=== PATIENT | female | born 1940 | race African-American/Black ===

== ENCOUNTER 2017-05-08 12:12 | Inpatient (IN) | payer MEDICARE ==
[~2017-05-08] VITALS: Ht 177.8 cm; Wt 81.6 kg
[2017-05-08] MEDS ORDERED: CARV6.25 PO (12:36)
[2017-05-08] MEDS ORDERED: ASPI-482 PO (12:36)
[2017-05-08 12:57] LABS: BASO % 0 % (0-3); EOS % 0 % (0-3); HEMATOCRIT 37.5 % (36.0-47.0); HEMOGLOBIN 12.4 g/dL (12.0-15.5); LYMPH # 1.3 x10^3/uL (1.0-4.8); LYMPH % 14 % (24-48); MEAN CORPUSCULAR HEMOGLOBIN 30 pg (25-35); MEAN CORPUSCULAR HGB CONC 33 g/dL (31-37); MEAN CORPUSCULAR VOLUME 92 fL (79-100); MONO % 7 % (0-9); NEUT % 78 % (31-73); PLATELET COUNT 269 x10^3/uL (140-400); RED BLOOD COUNT 4.07 x10^6/uL (3.50-5.40); RED CELL DISTRIBUTION WIDTH 14.1 % (11.5-14.5); WHITE BLOOD COUNT 9.3 x10^3/uL (4.0-11.0)
[2017-05-08] MEDS ORDERED: fentaNYL PF VIAL 100 MCG/2 ML VIAL IV PRN (13:00)
--- NOTE | 2017-05-08 13:02 | ED.ADGEN ---
Past Medical History Past Medical History: Diabetes-Type II, Hypertension Past Surgical History: Other Additional Past Surgical Histo: BLADDER REPAIR Alcohol Use: None Drug Use: None Adult General Chief Complaint Chief Complaint: SHOUDLER HPI HPI Patient is a 76 year old woman, history of type 2 diabetes mellitus, cardiomyopathy, hypertension, who presents to the emergency department with complaint of neck and left arm pain that radiates into her left scapula, that has been occurring intermittently over the past 5-6 days. Patient states the pain is achy and sore, denies any injuries, states the pain is somewhat worse with motion of the arm and the neck, some extension into the scapular region on the left, states that it is worse with rotation to the left, and with elevation. Denies any injuries or similar to previously. States that the pain does seem to wrap around to be under portion of her left arm. Denies any jose chest pain or shortness breath, any nausea or vomiting, any belching, any focal weakness, numbness or tingling. No recent travel or surgery. Patient states she was unable to sleep last night due to pain. Denies any swelling extremities, is noted to be tachycardic in the 120s and 130s upon arrival to the ED, denies any palpitations, denies any fever or chills, states that she use Aleve at home without relief today. Review of Systems Review of Systems Constitutional: Denies fever or chills. [] Eyes: Denies change in visual acuity. [] HENT: Denies nasal congestion or sore throat. [] Respiratory: Denies cough or shortness of breath. [] Cardiovascular: Denies chest pain or edema. [] GI: Denies abdominal pain, nausea, vomiting, bloody stools or diarrhea. [] : Denies dysuria. [] Musculoskeletal: Complaining of pain in the left side of her neck, back and left arm. Integument: Denies rash. [] Neurologic: Denies headache, focal weakness or sensory changes. [] Endocrine: Denies polyuria or polydipsia. [] Lymphatic: Denies swollen glands. [] Psychiatric: Denies depression or anxiety. [] Current Medications Current Medications Current Medications Medications (Trade) Dose Ordered Sig/Zoë Start Time Stop Time Status Last Admin Dose Admin Fentanyl Citrate (Fentanyl 2ml Vial) 25 mcg PRN Q15MIN PRN 05/08/17 13:00 05/08/17 17:56 DC 05/08/17 13:22 25 MCG Iohexol (Omnipaque 300 Mg/ml) 75 ml 1X ONCE 05/08/17 14:15 05/08/17 14:16 DC 05/08/17 15:14 75 ML Allergies Allergies Allergies Coded Allergies Type Severity Reaction Last Updated Verified No Known Drug Allergies 05/08/17 No Physical Exam Physical Exam Constitutional: Well developed, well nourished, no acute distress, non-toxic appearance. [] HENT: Normocephalic, atraumatic, bilateral external ears normal, oropharynx moist, no oral exudates, nose normal. [] Eyes: PERRLA, EOMI, conjunctiva normal, no discharge. [] Neck: Normal range of motion, no midline tenderness, supple, no stridor. Patient with mild to palpation in the trapezius region extending down to the scapula.[] Patient with worsening of symptoms with rotation to the left. No bruits. Cardiovascular:Heart rate regular rhythm, no murmur, S1, S2, no rubs or gallops. [] Lungs & Thorax: Bilateral breath sounds clear to auscultation, no wheezing, rhonchi, rales. No crepitus, patient with mild thrush palpation across the scapula on the left, no lesions or abnormalities identified. [] Abdomen: Bowel sounds normal, soft, no tenderness, no rebound, rigidity, no guarding, no masses, no pulsatile masses. [] Skin: Warm, dry, no erythema, no rash. [] Back: No midline or paraspinal tenderness, tenderness to palpation in the left scapular region as stated. No CVA tenderness. [] Extremities: No tenderness, no cyanosis, no clubbing, ROM intact, no edema. [] Patient with equal pulses in all extremities. Neurologic: Alert and oriented X 3, normal motor function, normal sensory function, no focal deficits noted. [] Psychologic: Affect normal, judgement normal, mood normal. [] Current Patient Data Vital Signs Vital Signs Date Time Temp Pulse Resp B/P (MAP) Pulse Ox O2 Delivery O2 Flow Rate FiO2 05/08/17 16:05 94 18 160/83 (108) 98 Room Air 05/08/17 12:20 98.0 98.0 Lab Values Laboratory Tests Test 05/08/17 12:32 White Blood Count 9.3 x10^3/uL (4.0-11.0) Red Blood Count 4.07 x10^6/uL (3.50-5.40) Hemoglobin 12.4 g/dL (12.0-15.5) Hematocrit 37.5 % (36.0-47.0) Mean Corpuscular Volume 92 fL (79-100) Mean Corpuscular Hemoglobin 30 pg (25-35) Mean Corpuscular Hemoglobin Concent 33 g/dL (31-37) Red Cell Distribution Width 14.1 % (11.5-14.5) Platelet Count 269 x10^3/uL (140-400) Neutrophils (%) (Auto) 78 % (31-73) H Lymphocytes (%) (Auto) 14 % (24-48) L Monocytes (%) (Auto) 7 % (0-9) Eosinophils (%) (Auto) 0 % (0-3) Basophils (%) (Auto) 0 % (0-3) Neutrophils # (Auto) 7.2 x10^3uL (1.8-7.7) Lymphocytes # (Auto) 1.3 x10^3/uL (1.0-4.8) Monocytes # (Auto) 0.6 x10^3/uL (0.0-1.1) Eosinophils # (Auto) 0.0 x10^3/uL (0.0-0.7) Basophils # (Auto) 0.0 x10^3/uL (0.0-0.2) D-Dimer (Kimmie) 0.54 ug/mlFEU (0.00-0.50) H Sodium Level 135 mmol/L (136-145) L Potassium Level 4.5 mmol/L (3.5-5.1) Chloride Level 98 mmol/L (98-107) Carbon Dioxide Level 26 mmol/L (21-32) Anion Gap 11 (6-14) Blood Urea Nitrogen 14 mg/dL (7-20) Creatinine 1.0 mg/dL (0.6-1.0) Estimated GFR (Cockcroft-Gault) 64.9 Glucose Level 207 mg/dL (70-99) H Calcium Level 9.7 mg/dL (8.5-10.1) Total Bilirubin 0.2 mg/dL (0.2-1.0) Direct Bilirubin 0.1 mg/dL (0.0-0.2) Aspartate Amino Transferase (AST) 22 U/L (15-37) Alanine Aminotransferase (ALT) 10 U/L (14-59) L Alkaline Phosphatase 60 U/L (46-116) Troponin I Quantitative < 0.017 ng/mL (0.000-0.055) UB-Xdl-L-Type Natriuretic Peptide 770 pg/mL (0-449) H Total Protein 8.2 g/dL (6.4-8.2) Albumin 3.9 g/dL (3.4-5.0) Laboratory Tests 05/08/17 12:32 Laboratory Tests 05/08/17 12:32 EKG EKG EC: Sinus tachycardia, heart rate 112 bpm, left ventricular hypertrophy noted, with repolarization abnormality, with elevations noted in lead 3 and aVF , with depressions noted in aVL, QTC of 436, KS of 200, QRS of 106, KS interval is prolonged as stated, abnormal ECG, no prior for comparison, does not meet STEMI criteria. As interpreted by me. [] Radiology/Procedures Radiology/Procedures [][address] [address] IMAGING REPORT Signed PATIENT: AIDEN CARRERO ACCOUNT: [id number] : 1940 LOCATION: ER AGE: 76 SEX: F EXAM STATUS: REG ER ORD. PHYSICIAN: JAVIER GOULD DO REASON: L arm pain PROCEDURE: SHOULDER 2+V LEFT Two-view left shoulder study History: Left arm pain. Findings: No acute fracture or dislocation or osteolytic process is seen. No AC joint separation is seen. There is moderate primary degenerative osteoarthritis and spurring of the left AC joint. 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 DICTATED and SIGNED BY: JONI AVALOS MD DATE: 05/08/17 8525 CC: JAVIER GOULD DO; ZACH PATTERSON MD ~ [address] [address] IMAGING REPORT Signed PATIENT: AIDEN CARRERO ACCOUNT: [id number] : 1940 LOCATION: ER AGE: 76 SEX: F EXAM STATUS: REG ER ORD. PHYSICIAN: JAVIER GOULD DO REASON: L arm pain PROCEDURE: CERVICAL SPINE 2-3V Three-view cervical spine study Clinical indications: Neck pain. Left arm pain. Findings: No acute fracture or discitis or osteolytic process or prevertebral soft tissue swelling is evident. There is a grade 1 anterolisthesis of C4-5. Degenerative facet arthropathy is seen at this level in addition to other levels. There is moderate degenerative disc space narrowing and moderate degenerative endplate spurring at C5-6. There is mild degenerative disc space narrowing and moderate degenerative endplate spurring at C6-7. IMPRESSION: Degenerative cervical spondylosis. DICTATED and SIGNED BY: JONI AVALOS MD DATE: 05/08/171328 CC: JAVIER GOULD DO; ZACH PATTERSON MD ~ [address] [address] IMAGING REPORT Signed PATIENT: AIDEN CARRERO ACCOUNT: [id number] : 1940 LOCATION: ER AGE: 76 SEX: F EXAM STATUS: REG ER ORD. PHYSICIAN: JAVIER GOULD DO REASON: L arm pain PROCEDURE: PORTABLE CHEST 1V PA view CXR: Clinical indications: Left chest and arm pain. Findings: No acute lung infiltrate or pleural effusion or pulmonary edema or lung mass or pneumothorax is seen. The heart size, pulmonary vasculature, mediastinum and both ernestina are unremarkable. No obvious osseous deformity is seen. Impression: No acute radiographic abnormality is seen. DICTATED and SIGNED BY: JONI AVALOS MD DATE: 05/08/171324 CC: JAVIER GOULD DO; ZACH PATTERSON MD ~ Impressions: [address] [address] IMAGING REPORT Signed PATIENT: AIDEN CARRERO ACCOUNT: [id number] : 1940 LOCATION: ER AGE: 76 SEX: F EXAM STATUS: REG ER ORD. PHYSICIAN: JAVIER GOULD DO REASON: Tachycardia/neck/arm/left back pain PROCEDURE: CT ANGIOGRAPHY CHEST CTA of the chest with and without contrast Clinical indications: Tachycardia. Neck, arm and left back pain. Technique: Noncontrast axial localizer was performed. After IV infusion of 75 cc of Omnipaque 300, helical CT scanning of the chest was performed using the CT pulmonary embolism protocol. A coronal MIP reconstruction was generated. PQRS Compliance Statement: One or more of the following individualized dose reduction techniques were utilized for this examination: 1. Automated exposure control 2. Adjustment of the mA and/or kV according to patient size 3. Use of iterative reconstruction technique Comparison: None available. Findings: No pulmonary embolism is evident. No focal aneurysmal dilatation of the thoracic aorta is seen. The heart size is mildly enlarged. Calcified atheromatous disease of the coronary arteries is seen. No pericardial effusion is seen. No enlarged thoracic lymphadenopathy is seen. Peripheral interstitial lung infiltrates are seen within both lung bases worse on the left side with mild honeycombing consistent with interstitial pulmonary fibrosis. No lung consolidation with air bronchograms or lung mass is seen. No pleural effusion or pneumothorax is evident. The proximal bronchial tree is patent. No adrenal mass is evident. No osteolytic process is seen. IMPRESSION: No pulmonary embolism. Cardiomegaly with calcified atheromatous disease of coronary arteries. Bilateral interstitial pulmonary fibrosis with a lower lung zone predominance. DICTATED and SIGNED BY: JONI AVALOS MD DATE: 05/08/171618 CC: JAVIER GOULD DO; ZACH PATTERSON MD ~ Course & Med Decision Making Course & Med Decision Making Pertinent Labs and Imaging studies reviewed. (See chart for details) Patient complaining of scapular pain, neck pain, and left arm pain, has history of CAD, concern for potential atypical chest pain, patient also noted be in sinus tachycardia upon arrival in the 130s. Denies any shortness of breath, any anterior chest pain, any nausea or vomiting or other symptoms. No injuries. Received with ECG, which revealed left internal hypertrophy, abnormalities in the inferior and lateral leads, patient is denying any chest pain or other symptoms currently, initial troponin is negative in the emergency department. Patient received pain medication, heart rate is now in the 80s and 90s. Oxygen saturation remains in the mid upper 90s. D-dimer was positive at 0.54. Did discuss findings with patient, she is agreeable to receiving additional evaluation, including CT of the chest to rule out occult pulmonary or vascular issue. CT obtained without issue, no evidence of PE or vascular issues, patient noted to have bilateral pulmonary also to fibrosis. I did discuss with patient, she does not have any history of lung issues as far she is aware, states she quit smoking 33 years ago. Patient is resting more comfortably L she continues to have some pain in the arm and shoulder region, I am concerned this is a radicular type pain, as patient is noted have degenerative changes in the neck and in the shoulder. Findings as above discussed with Dr. Patterson, the patient's primary care provider, concern for potential atypical cardiac presentation with patient's history and examination, also concern for patient's tachycardia, and identification of a previously unknown lung issue, request the patient be admitted to his service to the medical telemetry floor, consultation placed for pulmonary critical care and cardiology. I did discuss with patient, who is agreeable this plan. Bridge orders entered per discussion. Dragon Disclaimer Dragon Disclaimer This electronic medical record was generated, in whole or in part, using a voice recognition dictation system. Departure Impression: Primary Impression: Back pain Disposition: ADMITTED INPATIENT Admitting Physician: Zach Patterson Condition: IMPROVED JAVIER GOULD DO May 08, 2017 13:01
[2017-05-08] MEDS ORDERED: METH5TAB6 PO (13:09)
[2017-05-08] MEDS ORDERED: CARV3.122 PO (13:09)
[2017-05-08] MEDS ORDERED: SIMV20TA3 PO (13:09)
[2017-05-08] MEDS ORDERED: METF850T2 PO (13:09)
[2017-05-08 13:13] LABS: CALCIUM 9.7 mg/dL (8.5-10.1); GFR 64.9; POTASSIUM 4.5 mmol/L (3.5-5.1)
[2017-05-08 13:20] LABS: ALBUMIN 3.9 g/dL (3.4-5.0); DIRECT BILIRUBIN 0.1 mg/dL (0.0-0.2); TOTAL BILIRUBIN 0.2 mg/dL (0.2-1.0); TOTAL PROTEIN 8.2 g/dL (6.4-8.2)
--- NOTE | 2017-05-08 13:29 | RAD ---
PA view CXR: Clinical indications: Left chest and arm pain. Findings: No acute lung infiltrate or pleural effusion or pulmonary edema or lung mass or pneumothorax is seen. The heart size, pulmonary vasculature, mediastinum and both ernestina are unremarkable. No obvious osseous deformity is seen. Impression: No acute radiographic abnormality is seen.
--- NOTE | 2017-05-08 13:31 | RAD ---
Two-view left shoulder study History: Left arm pain. Findings: No acute fracture or dislocation or osteolytic process is seen. No AC joint separation is seen. There is moderate primary degenerative osteoarthritis and spurring of the left AC joint. 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
--- NOTE | 2017-05-08 13:34 | RAD ---
Three-view cervical spine study Clinical indications: Neck pain. Left arm pain. Findings: No acute fracture or discitis or osteolytic process or prevertebral soft tissue swelling is evident. There is a grade 1 anterolisthesis of C4-5. Degenerative facet arthropathy is seen at this level in addition to other levels. There is moderate degenerative disc space narrowing and moderate degenerative endplate spurring at C5-6. There is mild degenerative disc space narrowing and moderate degenerative endplate spurring at C6-7. IMPRESSION: Degenerative cervical spondylosis.
[2017-05-08] MEDS ORDERED: IOHEXOL 300 MG/ML 75 ML VIAL IV ONE (14:15)
[2017-05-08] MEDS ORDERED: CONTRAST GIVEN MC PRN (14:15)
[2017-05-08 16:05] VITALS: BP 160/83
--- NOTE | 2017-05-08 16:27 | RAD ---
CTA of the chest with and without contrast Clinical indications: Tachycardia. Neck, arm and left back pain. Technique: Noncontrast axial localizer was performed. After IV infusion of 75 cc of Omnipaque 300, helical CT scanning of the chest was performed using the CT pulmonary embolism protocol. A coronal MIP reconstruction was generated. PQRS Compliance Statement: One or more of the following individualized dose reduction techniques were utilized for this examination: 1. Automated exposure control 2. Adjustment of the mA and/or kV according to patient size 3. Use of iterative reconstruction technique Comparison: None available. Findings: No pulmonary embolism is evident. No focal aneurysmal dilatation of the thoracic aorta is seen. The heart size is mildly enlarged. Calcified atheromatous disease of the coronary arteries is seen. No pericardial effusion is seen. No enlarged thoracic lymphadenopathy is seen. Peripheral interstitial lung infiltrates are seen within both lung bases worse on the left side with mild honeycombing consistent with interstitial pulmonary fibrosis. No lung consolidation with air bronchograms or lung mass is seen. No pleural effusion or pneumothorax is evident. The proximal bronchial tree is patent. No adrenal mass is evident. No osteolytic process is seen. IMPRESSION: No pulmonary embolism. Cardiomegaly with calcified atheromatous disease of coronary arteries. Bilateral interstitial pulmonary fibrosis with a lower lung zone predominance.
[2017-05-08] MEDS ORDERED: ACETAMINOPHEN 325 MG TABLET. PO PRN (18:00)
[2017-05-08] MEDS ORDERED: ONDANSETRON PF 4 MG/2 ML VIAL. IV PRN (18:00)
[2017-05-08] MEDS ORDERED: METH-364 PO (18:35)
[2017-05-08] MEDS ORDERED: CYAN100070 PO (18:35)
[2017-05-08] MEDS ORDERED: CHOL10003 PO (18:35)
[2017-05-08] MEDS ORDERED: CALC1TAB PO (18:35)
[2017-05-08] MEDS ORDERED: MULT-697 PO (18:35)
[2017-05-08 19:00] VITALS: BP 127/60
[2017-05-08] MEDS: fentaNYL PF VIAL 100 MCG/2 ML VIAL IV PRN ×2 (19:41→21:17)
[2017-05-08] MEDS ORDERED: GLIM4TAB2 PO (21:07)
[2017-05-08] MEDS: SIMVASTATIN 20 MG TABLET PO SCH (21:16)
[2017-05-08] MEDS: methIMAzole 10 MG TABLET PO SCH (21:17)
[2017-05-08] MEDS: GLIMEPIRIDE 2 MG TABLET. PO SCH (21:17)
[2017-05-08] MEDS: CARVEDILOL 3.125 MG TABLET. PO SCH (21:17)
[2017-05-08 22:56] VITALS: BP 124/63
[2017-05-09] VITALS (15 sets, daily range): BP systolic 119–154; BP diastolic 56–80
[2017-05-09] MEDS: fentaNYL PF VIAL 100 MCG/2 ML VIAL IV PRN (03:34)
--- NOTE | 2017-05-09 04:34 | ACF ---
Admit Criteria Forms Admit Criteria Forms Admit Criteria Forms CARDIOLOGY GRG Clinical Indications for Admission to Inpatient Care ( Place 'X' for any and all applicable criteria): Hospital admission is needed for appropriate care of the patient because of ANY ONE of the following (1): [ ] I. Hemodynamic instability as indicated by ALL of the following (1)(2)(3) (4)(5) [ ]a) Vital signs or other findings not as expected for chronic patient condition or baseline [ ]b) Instability indicated by ANY ONE of the following: [ ]i) Hypotension [ ]ii) Symptomatic Tachycardia unresponsive to treatment ( e.g., analgesia, fluids, sedation as indicated) [ ]iii) Inadequate perfusion indicated by ANY ONE of the following: [ ] 1) Lactic acidosis (> 2 mmol/L) [ ] 2) New abnormal capillary refill (> 3 seconds) [ ] 3) Reduced urine output [ ] 4) New altered mental status [ ]iv) Orthostatic vital sign changes unresponsive to treatment (e.g., fluids) [ ]v) IV inotropic or vasopressor medication required to maintain adequate blood pressure or perfusion [ ] II. Severe heart failure as indicated by ANY ONE of the following(17)(18) [ ]a) Respiratory distress [ ]b) Hypotension [ ]c) Anasarca (refractory to outpatient therapy) [ ]d) Cardiac arrhythmias of immediate concern [ ]e) Myocardial ischemia [ ] III. Cardiac arrhythmias or findings of immediate concern indicated by ANY ONE of the following (19)(20): [ ] a) Heart rhythms that are inherently dangerous or unstable indicated by ANY ONE of the following (21)(22)(23): [ ] i) Resuscitated ventricular fibrillation or cardiac arrest [ ] ii) Ventricular escape rhythm [ ] iii) Sustained ventricular tachycardia (30 seconds or more of ventricular rhythm at greater than 100 beats per minute) [ ] iv) Nonsustained ventricular tachycardia and ANY ONE of the following: [ ] 1) Suspected cardiac ischemia as cause or consequence of ventricular tachycardia [ ] 2) In setting of acute myocarditis [ ] b) Unstable cardiac conduction defects indicated by ANY ONE of the following(23)(24)(25) [ ] i) Type II second-degree atrioventricular block [ ]ii) Third-degree atrioventricular block [ ]iii) New-onset left bundle branch block with suspected myocardial ischemia [ ]c) Any heart rhythm and ANY ONE of the following (21)(22)(26)(27) (28) [ ] i) Continuous long-term ECG monitoring needed (e.g., initiation of drug requiring monitoring for more than 24 hours) [ ] ii) Patient has automatic implanted cardioverter defibrillator that is repeatedly firing, malfunctioning, or in need of immediate adjustment of settings beyond the scope of ambulatory or observation care [ ]d) Heart rhythms of concern due to ANY ONE of the following: [ ] i) Hypotension [ ] ii) Respiratory distress [ ] iii) Association with other significant symptoms (e.g., bradycardia with syncope or ongoing dizziness, supraventricular tachycardia with chest pain (14)(15)(17) [ ] IV. Monitoring for cardiac contusion beyond the scope of observation care needed [A](30)(31)(32) [ ] V. Surgical or device complication (e.g., valve replacement complication , pacemaker dysfunction) (35)(41)(44)(45)(46) [ ] . Inpatient palliative care needed. [B](49) Also use Inpatient Palliative Care Criteria [ ] VII. Nonbacterial thrombotic (marantic) endocarditis (36)(43)(47)(48) [X ] VIII. Cardiology condition, symptom, or finding for which emergency and observation care has failed or are not considered appropriate. [ ] IX. Acute valvular disease requiring inpatient as indicated by ANY ONE of the following (41) [ ]a) Acute valvular regurgitation (42) [ ]b) Noninfectious valvulitis (43) [ ]c) Obstructive valve thrombosis [ ]d) Paravalvular leak [ ]e) Other significant valvular disorder remaining after emergency or observation level of care (as appropriate) [ ]X. Pericardial disease requiring inpatient treatment as indicated by ANY ONE of the following (33)(34)(35)(36)(37) [ ]a) Suspected tamponade (38)(39)(40) [ ]b) Hemopericardium [ ]c) Other significant pericardial disorder remaining after emergency or observation level of care (as appropriate) [ ] XI. Cardiac ischemia beyond scope of emergency and observation care. [ ] XII. Hypertension requiring inpatient treatment as indicated by ANY ONE of the following (6)(7)(8) [ ]a) SBP greater than 220 mm Hg or DBP greater than 120 mmHg despite treatment [ ]b) SBP greater than 140 mm Hg or DBP greater than 100 mm Hg with evidence of acute end organ damage as indicated by ANY ONE of the following [ ] i) Encephalopathy [ ] ii) Acute renal failure as indicated by new onset of ANY ONE of the following (9)(10)(11)(12)(13) [ ]1) 3-fold rise in serum creatinine from baseline [ ]2) Serum creatinine greater than 4 mg/dL ( 354 micromoles/L) with acute rise greater than 0.5 mg/dL (44.2 micromoles/L) [ ]3) Reduction of more than 75% in estimated glomerular filtration rate from baseline [ ]4) Estimated glomerular filtration rate less than 35 mL/min/1.73m2 (0.59 mL/sec/1.73m2) in child up to 18 years of age [ ]5) Cessation of urine output indicated by ALL of the following [ ]A. Adequate volume status [ ]B. Inadequate urine output as indicated by ANY ONE of the following [ ]a. Urine output less than 0.3 mL/kg/hr for 24 hours [ ]b. Anuria (urine output less than 0.1 mL/kg/hr) for 12 hours [ ] iii) Aortic dissection [ ] iv) Myocardial Ischemia [ ] v) Left ventricular heart failure [ ]vi) Retinal Hemorrhage [ ]vii) Other significant finding [ ]c) Hypertension in child requiring inpatient treatment as indicated by ALL of the following(14)(15)(16) [ ] i) Outpatient treatment not effective, not available, or not appropriate [ ]ii) SBP or DBP greater than 95th percentile for age [ ]iii) Evidence of acute end organ damage as indicated by ANY ONE of the following [ ]1) Altered mental status [ ]2) Acute renal failure as indicated by new onset of ANY ONE of the following(9)(10)(11)(12)(13) [ ]A. 3-fold rise in serum creatinine from baseline [ ]B. Serum creatinine greater than 4 mg/dL (354 micromoles/L) with acute rise greater than 0.5 mg/dL (44.2 micromoles/L) [ ]C. Reduction of more than 75% in estimated glomerular filtration rate from baseline [ ]D. Estimated glomerular filtration rate less than 35 mL/min/1.73m2 (0.59 mL/sec/1.73m2) in child up to 18 years of age [ ]E. Cessation of urine output indicated by ALL of the following [ ]a. Adequate volume status [ ]b. Inadequate urine output as indicated by ANY ONE of the following [ ]i) Urine output less than 0.3 mL/kg/hr for 24 hours [ ]ii) Anuria ( urine output less than 0.1 mL/kg/hr) for 12 hours [ ]3) Severe headache [ ]4) Visual disturbance [ ]5) Retinal hemorrhage [ ]6) Other significant finding [ ]XIII. Complications of transplanted heart indicated by ANY ONE of the following(61): [ ]a) Acute graft rejection requiring inpatient management (eg, intravenous immunosuppression)(62)(63) [ ]b) Acute graft heart failure indicated by ANY ONE of the following(64): [ ]i) Hemodynamic instability [ ]ii) Cardiac arrhythmias of immediate concern [ ]iii) Pulmonary edema that is very severe (eg, mechanical ventilation needed, imminent or likely, need for 100% oxygen to keep oxygen saturation above 90%) [ ]iv) Pulmonary edema that is persistent as indicated by ALL of the following: [ ]1) New need for oxygen therapy to keep oxygen saturation above 90% (or increased FiO2 need from baseline) [ ]2) Has not improved sufficiently with emergency department or observation care IV diuretics or other heart failure treatments[E] [ ]v) Altered mental status that is severe or persistent [ ]vi) Increased creatinine (new on laboratory test) with reduction of more than 50% in estimated glomerular filtration rate from baseline [ ]vii) Progressively (ongoing) rising creatinine (known from past laboratory test) with reduction of more than 25% in estimated glomerular filtration rate from baseline [ ]viii) Acute renal failure [ ]ix) Acute peripheral ischemia (eg, examination shows pulseless, cool, mottled, or cyanotic extremity) [ ]x) Pulmonary artery catheter monitoring needed [ ]xi) Other sign or symptom of heart failure requiring inpatient treatment (ie, too severe or not responsive to outpatient and observation care treatment) [ ]c) Infection requiring inpatient management (eg, Hemodynamic instability, need for intravenous antimicrobial treatment)(66)(67)(68)(69)(70) [ ]d) Cardiac allograft vasculopathy requiring inpatient management ( eg evidence of cardiac ischemia)(71) [ ]e) Other complication of transplanted heart (eg, stroke, severe pulmonary hypertension, severe valvular dysfunction) requiring inpatient management(72) The original [employer] content created by [facility] has been revised. The portions of the content which have been revised are identified through the use of italic text or in bold, and [facility] [employer] has neither reviewed nor approved the modified material. All other unmodified content is copyright [employer] [employer]. Please see references footnoted in the original [employer] edition 2016 PANCHO SPENCE May 09, 2017 04:34
--- NOTE | 2017-05-09 06:24 | EKG ---
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
[2017-05-09] MEDS: methIMAzole 10 MG TABLET PO SCH ×3 (06:29→21:53)
[2017-05-09 06:48] LABS: ALBUMIN 3.3 g/dL (3.4-5.0); ALBUMIN/GLOBULIN RATIO 0.7 (1.0-1.7); CALCIUM 9.2 mg/dL (8.5-10.1); CREATININE 0.8 mg/dL (0.6-1.0); GFR 83.9; POTASSIUM 3.4 mmol/L (3.5-5.1); TOTAL BILIRUBIN 0.3 mg/dL (0.2-1.0); TOTAL PROTEIN 7.8 g/dL (6.4-8.2)
[2017-05-09] MEDS: INSULIN ASPART 300 UNITS/3 ML INSULN.PEN SQ SCH ×3 (07:30→18:45)
[2017-05-09] MEDS ORDERED: ACETAMINOPHEN 325 MG TABLET. PO PRN (07:30)
[2017-05-09] MEDS ORDERED: fentaNYL PF VIAL 100 MCG/2 ML VIAL IV PRN (07:30)
[2017-05-09] MEDS ORDERED: ONDANSETRON PF 4 MG/2 ML VIAL. IV PRN (07:30)
[2017-05-09 07:57] LABS: BASO % 0 % (0-3); EOS % 1 % (0-3); HEMATOCRIT 33.4 % (36.0-47.0); LYMPH # 1.3 x10^3/uL (1.0-4.8); LYMPH % 25 % (24-48); MEAN CORPUSCULAR HEMOGLOBIN 30 pg (25-35); MEAN CORPUSCULAR HGB CONC 33 g/dL (31-37); MEAN CORPUSCULAR VOLUME 92 fL (79-100); MONO % 12 % (0-9); NEUT % 62 % (31-73); PLATELET COUNT 233 x10^3/uL (140-400); RED BLOOD COUNT 3.62 x10^6/uL (3.50-5.40); RED CELL DISTRIBUTION WIDTH 14.1 % (11.5-14.5); WHITE BLOOD COUNT 5.3 x10^3/uL (4.0-11.0)
[2017-05-09] MEDS: CHOLECALCIFEROL (VITAMIN D3) 1,000 UNIT TABLET PO SCH (09:00)
[2017-05-09] MEDS: DICLOFENAC SODIUM 1% TOPICAL GEL 100GM TUBE. TP SCH ×4 (09:00→23:32)
[2017-05-09] MEDS: ASPIRIN ENTERIC COATED 81 MG TABLET.DR. PO SCH (09:19)
[2017-05-09] MEDS: CARVEDILOL 3.125 MG TABLET. PO SCH ×2 (09:19→18:35)
[2017-05-09] MEDS: GLIMEPIRIDE 2 MG TABLET. PO SCH ×2 (09:19→18:34)
[2017-05-09] MEDS: CALCIUM CARB/VIT D3 500/200 TABLET. PO SCH (09:20)
[2017-05-09] MEDS: MULTIVITAMIN with MINERAL TABLET. PO SCH (09:20)
[2017-05-09] MEDS: tiZANidine 4 MG TABLET. PO PRN (09:20)
[2017-05-09] MEDS: CYANOCOBALAMIN (VITAMIN B-12) 1,000 MCG TABLET. PO SCH (09:22)
--- NOTE | 2017-05-09 09:37 | PDOC ---
Provider Note Provider Note Patient seen. See H&P for details. Has neck,left shoulder pain. Seen in office last week- c/o rt sided neck and shoulder pain at that time. CT chest- pulmonary fibrosis. The patient was seen and examined by me. Chart reviewed and plan of care formulated. Discussed with, reviewed and agree with EAR MACHINE OPERATOR's notes, plan of care and orders with modifications as necessary. For more details regarding further plans, please refer to the orders. Patient may be discharged later today if stable. LOIDA REID MD May 09, 2017 09:37
--- NOTE | 2017-05-09 09:39 | PDOC1 ---
HISTORY AND PHYSICAL Chief Complaint Chief Complaint This 77 year old female has been admitted with a chief complaint of L sided neck pain into L shoulder with h/o CAD treated by Dr. Beyer in [place], [place]. She was seen Tuesday by Dr. Patterson for a routine f/u office visit. She reports that she forgot to tell Dr. Patterson of the recent onset of pain in her L neck and L shoulder/L wrist. The onset of pain was 3-5 days earlier with no trauma. It started in her L neck muscle extending posterior into L scapula/shoulder and some L wrist pain. Tuesday it reached a level 10 and she could hardly move her L arm and the pain was starting on the R side of her neck. She was not able to sleep. She presented to the ED for evaluation. EKG ST rate 120-130. Degenerative arthritis L shoulder joint and OA cervical spine. Hypertensive urgency was present probably r/t pain. D dimer was positive and a CT angio of the chest revealed interstitial infiltrate bilateral lung bases L>R suspicious for pulmonary fibrosis. There was CM also present. BNP was mildly elevated at 770. She does have a h/o systolic/diastolic CHF with biventricular enlargement. She is also under treatment for CAD with Dr. Beyer. EKG was ST with non specific ST changes and she is admitted for further evaluation and treatment. 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 Medications Medication reviewed and reconciled Allergy Allergies Coded Allergies Type Severity Reaction Last Updated Verified No Known Drug Allergies 05/08/17 No Physical Exam Physical Exam General appearance - alert,well appearing, and in no distress Mental Status - alert, oriented to person, place, and time, affect appropriate to mood Head - normal Chest - baseline fine crackles R>L otherwise clear Heart - S1 and S2 normal Abdomen - soft, nontender, nondistended, no masses or organomegaly Neurological - no acute focal neurological deficit noted. Musculoskeletal - trapezius tender with tenderness into L rotator cuff. Pain with ROM L shoulder and L wrist. Extremities - no pedal edema Skin - warm and dry VTE Prophylaxis Ordered VTE Prophylaxis Devices: Yes VTE Pharmacological Prophylaxi: Yes Assessment Labs Laboratory Tests Test 05/08/17 12:32 05/08/17 20:29 05/09/17 06:05 05/09/17 07:35 White Blood Count 9.3 x10^3/uL (4.0-11.0) 5.3 x10^3/uL (4.0-11.0) Red Blood Count 4.07 x10^6/uL (3.50-5.40) 3.62 x10^6/uL (3.50-5.40) Hemoglobin 12.4 g/dL (12.0-15.5) 11.0 g/dL (12.0-15.5) Hematocrit 37.5 % (36.0-47.0) 33.4 % (36.0-47.0) Mean Corpuscular Volume 92 fL (79-100) 92 fL (79-100) Mean Corpuscular Hemoglobin 30 pg (25-35) 30 pg (25-35) Mean Corpuscular Hemoglobin Concent 33 g/dL (31-37) 33 g/dL (31-37) Red Cell Distribution Width 14.1 % (11.5-14.5) 14.1 % (11.5-14.5) Platelet Count 269 x10^3/uL (140-400) 233 x10^3/uL (140-400) Neutrophils (%) (Auto) 78 % (31-73) 62 % (31-73) Lymphocytes (%) (Auto) 14 % (24-48) 25 % (24-48) Monocytes (%) (Auto) 7 % (0-9) 12 % (0-9) Eosinophils (%) (Auto) 0 % (0-3) 1 % (0-3) Basophils (%) (Auto) 0 % (0-3) 0 % (0-3) Neutrophils # (Auto) 7.2 x10^3uL (1.8-7.7) 3.3 x10^3uL (1.8-7.7) Lymphocytes # (Auto) 1.3 x10^3/uL (1.0-4.8) 1.3 x10^3/uL (1.0-4.8) Monocytes # (Auto) 0.6 x10^3/uL (0.0-1.1) 0.6 x10^3/uL (0.0-1.1) Eosinophils # (Auto) 0.0 x10^3/uL (0.0-0.7) 0.1 x10^3/uL (0.0-0.7) Basophils # (Auto) 0.0 x10^3/uL (0.0-0.2) 0.0 x10^3/uL (0.0-0.2) D-Dimer (Kimmie) 0.54 ug/mlFEU (0.00-0.50) Sodium Level 135 mmol/L (136-145) 138 mmol/L (136-145) Potassium Level 4.5 mmol/L (3.5-5.1) 3.4 mmol/L (3.5-5.1) Chloride Level 98 mmol/L (98-107) 101 mmol/L (98-107) Carbon Dioxide Level 26 mmol/L (21-32) 29 mmol/L (21-32) Anion Gap 11 (6-14) 8 (6-14) Blood Urea Nitrogen 14 mg/dL (7-20) 10 mg/dL (7-20) Creatinine 1.0 mg/dL (0.6-1.0) 0.8 mg/dL (0.6-1.0) Estimated GFR (Cockcroft-Gault) 64.9 83.9 Glucose Level 207 mg/dL (70-99) 148 mg/dL (70-99) Calcium Level 9.7 mg/dL (8.5-10.1) 9.2 mg/dL (8.5-10.1) Total Bilirubin 0.2 mg/dL (0.2-1.0) 0.3 mg/dL (0.2-1.0) Direct Bilirubin 0.1 mg/dL (0.0-0.2) Aspartate Amino Transf (AST/SGOT) 22 U/L (15-37) 41 U/L (15-37) Alanine Aminotransferase (ALT/SGPT) 10 U/L (14-59) 10 U/L (14-59) Alkaline Phosphatase 60 U/L (46-116) 51 U/L (46-116) Troponin I Quantitative < 0.017 ng/mL (0.000-0.055) OV-Aug-I-Type Natriuretic Peptide 770 pg/mL (0-449) Total Protein 8.2 g/dL (6.4-8.2) 7.8 g/dL (6.4-8.2) Albumin 3.9 g/dL (3.4-5.0) 3.3 g/dL (3.4-5.0) Glucose (Fingerstick) 277 mg/dL (70-99) BUN/Creatinine Ratio 13 (6-20) Albumin/Globulin Ratio 0.7 (1.0-1.7) Test 05/09/17 07:58 Glucose (Fingerstick) 147 mg/dL (70-99) Laboratory Tests Test 05/08/17 12:32 05/08/17 20:29 05/09/17 06:05 05/09/17 07:35 White Blood Count 9.3 x10^3/uL (4.0-11.0) 5.3 x10^3/uL (4.0-11.0) Red Blood Count 4.07 x10^6/uL (3.50-5.40) 3.62 x10^6/uL (3.50-5.40) Hemoglobin 12.4 g/dL (12.0-15.5) 11.0 g/dL (12.0-15.5) Hematocrit 37.5 % (36.0-47.0) 33.4 % (36.0-47.0) Mean Corpuscular Volume 92 fL (79-100) 92 fL (79-100) Mean Corpuscular Hemoglobin 30 pg (25-35) 30 pg (25-35) Mean Corpuscular Hemoglobin Concent 33 g/dL (31-37) 33 g/dL (31-37) Red Cell Distribution Width 14.1 % (11.5-14.5) 14.1 % (11.5-14.5) Platelet Count 269 x10^3/uL (140-400) 233 x10^3/uL (140-400) Neutrophils (%) (Auto) 78 % (31-73) 62 % (31-73) Lymphocytes (%) (Auto) 14 % (24-48) 25 % (24-48) Monocytes (%) (Auto) 7 % (0-9) 12 % (0-9) Eosinophils (%) (Auto) 0 % (0-3) 1 % (0-3) Basophils (%) (Auto) 0 % (0-3) 0 % (0-3) Neutrophils # (Auto) 7.2 x10^3uL (1.8-7.7) 3.3 x10^3uL (1.8-7.7) Lymphocytes # (Auto) 1.3 x10^3/uL (1.0-4.8) 1.3 x10^3/uL (1.0-4.8) Monocytes # (Auto) 0.6 x10^3/uL (0.0-1.1) 0.6 x10^3/uL (0.0-1.1) Eosinophils # (Auto) 0.0 x10^3/uL (0.0-0.7) 0.1 x10^3/uL (0.0-0.7) Basophils # (Auto) 0.0 x10^3/uL (0.0-0.2) 0.0 x10^3/uL (0.0-0.2) D-Dimer (Kimmie) 0.54 ug/mlFEU (0.00-0.50) Sodium Level 135 mmol/L (136-145) 138 mmol/L (136-145) Potassium Level 4.5 mmol/L (3.5-5.1) 3.4 mmol/L (3.5-5.1) Chloride Level 98 mmol/L (98-107) 101 mmol/L (98-107) Carbon Dioxide Level 26 mmol/L (21-32) 29 mmol/L (21-32) Anion Gap 11 (6-14) 8 (6-14) Blood Urea Nitrogen 14 mg/dL (7-20) 10 mg/dL (7-20) Creatinine 1.0 mg/dL (0.6-1.0) 0.8 mg/dL (0.6-1.0) Estimated GFR (Cockcroft-Gault) 64.9 83.9 Glucose Level 207 mg/dL (70-99) 148 mg/dL (70-99) Calcium Level 9.7 mg/dL (8.5-10.1) 9.2 mg/dL (8.5-10.1) Total Bilirubin 0.2 mg/dL (0.2-1.0) 0.3 mg/dL (0.2-1.0) Direct Bilirubin 0.1 mg/dL (0.0-0.2) Aspartate Amino Transf (AST/SGOT) 22 U/L (15-37) 41 U/L (15-37) Alanine Aminotransferase (ALT/SGPT) 10 U/L (14-59) 10 U/L (14-59) Alkaline Phosphatase 60 U/L (46-116) 51 U/L (46-116) Troponin I Quantitative < 0.017 ng/mL (0.000-0.055) GY-Set-J-Type Natriuretic Peptide 770 pg/mL (0-449) Total Protein 8.2 g/dL (6.4-8.2) 7.8 g/dL (6.4-8.2) Albumin 3.9 g/dL (3.4-5.0) 3.3 g/dL (3.4-5.0) Glucose (Fingerstick) 277 mg/dL (70-99) BUN/Creatinine Ratio 13 (6-20) Albumin/Globulin Ratio 0.7 (1.0-1.7) Test 05/09/17 07:58 Glucose (Fingerstick) 147 mg/dL (70-99) Plan Plan 1. L sided neck pain radiating to L scapula 2. L shoulder pain/L wrist pain acute on chronic 3. CAD 4. hypertensive urgency 5. Non ischemicCM with CHF biventricular enlargement, systolic EF 20% and diastolic chronic 2014 ECHO 6. DM II non insulin with neuropathy 7. hypothyroid 8. hyperlipidemia 9. GERD 10. diverticulosis 11. 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 OA cervical spine 14. internal hemorrhoid PLAN: neck pain h/o CAD +ASA cardiology consult Physiatry consult voltaren gel topical QID tizanidine 2mg q8hr prn EKG ST non spec ST changes Troponin neg CHF not acute admit wt 1810# +BB neg EVANS/RAISSA BNP 770 HTN urgency improved with pain control continue home meds abnormal CT angio pulmonary consult CKD II/hyponatremia Admit 135 05/09 148 monitor DM II SSI/FSBS hold metformin [address] angio continue glimepiride DVT/GI prophylaxis SCD/ELIZABETH-ambulate Pepcid bid For more details regarding further plans, please refer to the orders. ANGELIQUE LE ELECTROMECHANICAL EQUIPMENT TESTER May 09, 2017 09:39
--- NOTE | 2017-05-09 09:40 | DISCH ---
DISCHARGE INSTRUCTIONS Condition on Discharge Condition on Discharge: Stable Activity After Discharge Activity Instructions for Disc: Activity as tolerated Diet after Discharge Diet after Discharge: Cardiac (ADA diet ) Checks after Discharge DC Comment: Check BS two times daily before meals. Contacting the DRSakshi after DC Call your doctor for: If your condition worsens Follow-Up Follow up with: Dr. Patterson in 3-5 days ANGELIQUE LE APRN May 09, 2017 09:40
[2017-05-09] MEDS ORDERED: TRAM50TA PO (09:43)
[2017-05-09] MEDS ORDERED: TIZA2CAP PO (09:43)
[2017-05-09] MEDS ORDERED: METF850T2 PO (09:44)
--- NOTE | 2017-05-09 09:44 | PDOC2 ---
HARVINDER CHAMPAGNE MENAGERIE CARETAKER 05/09/17 0944: CARDIAC CONSULT DATE OF CONSULT Date of Consult DATE: 05/09/17 TIME: 09:36 REASON FOR CONSULT Reason for Consult: Chest Pain Abnormal EKG REFERRING PHYSICIAN Referring Physician: Dr. Savage SOURCE Source: Chart review, Patient HISTORY OF PRESENT ILLNESS HISTORY OF PRESENT ILLNESS This is a 76 yo female who presented with complains of left shoulder and neck pain. Patient reports pain has been ongoing for the last week. Worse Tuesday night; was unable to sleep. Describes as sore and achy. Worsened with movement. Left neck tenderness upon palpation. Denies any CP, palpitations, dizziness, diaphoresis, or nausea/vomiting. EKG noted to be abnormal upon admission, which prompted this consult. Does have a history of CAD with reported chronic total occlusion identified from cath last year that is being medically managed. Follows closely with sprayer operator, Dr. Horne at [facility]. Has follow up appointment 05/24/17. Last echocardiogram sometime last years. Is to have one conducted at routine followup in a couple of weeks. PAST MEDICAL HISTORY Cardiovascular: CAD, HTN Pulmonary: No pertinent hx GI: No pertinent hx Heme/Onc: No pertinent hx Hepatobiliary: No pertinent hx Psych: No pertinent hx Musculoskeletal: Osteoarthritis Rheumatologic: Fibromyalgia ENT: No pertinent hx Renal/: No pertinent hx Endocrine: Diabetes, Hypothyroidism Dermatology: No pertinent hx PAST SURGICAL HISTORY Past Surgical History: Other (oophorectomy, bladder sx ) FAMILY HISTORY Family History: Coronary Artery Disease, Diabetes, Hypertension SOCIAL HISTORY Smoke: No ALCOHOL: none Drugs: None Lives: Alone CURRENT MEDICATIONS CURRENT MEDICATIONS Current Medications Medications (Trade) Dose Ordered Sig/Zoë Route PRN Reason Start Time Stop Time Status Last Admin Dose Admin Fentanyl Citrate (Fentanyl 2ml Vial) 25 mcg PRN Q15MIN PRN IV PAIN GREATER THAN 3/10 05/08/17 13:00 05/08/17 17:56 DC 05/08/17 13:22 Iohexol (Omnipaque 300 Mg/ml) 75 ml 1X ONCE IV 05/08/17 14:15 05/08/17 14:16 DC 05/08/17 15:14 Fentanyl Citrate (Fentanyl 2ml Vial) 50 mcg PRN Q1HR PRN IV PAIN 05/08/17 18:00 05/09/17 07:30 DC 05/09/17 03:34 Acetaminophen (Tylenol) 650 mg PRN Q4HRS PRN PO FEVER 05/08/17 18:00 05/09/17 07:30 DC 05/08/17 19:39 Aspirin (Ecotrin) 81 mg DAILY PO 05/09/17 09:00 05/09/17 09:19 Carvedilol (Coreg) 3.125 mg BIDWMEALS PO 05/08/17 21:00 05/09/17 09:19 Vitamin D (Vitamin D3) 1,000 unit DAILY PO 05/09/17 09:00 05/09/17 09:00 Methimazole (Tapazole) 5 mg Q8HRS PO 05/08/17 22:00 05/09/17 06:29 Simvastatin (Zocor) 20 mg QHS PO 05/08/17 21:00 05/08/17 21:16 Calcium/Vitamin D (Oscal D 500mg/ 200uts) 1 tab DAILYWBKFT PO 05/09/17 08:00 05/09/17 09:20 Cyanocobalamin (Vitamin B-12) 1,000 mcg DAILY PO 05/09/17 09:00 05/09/17 09:22 Multivitamins (Thera M Plus) 1 tab DAILY PO 05/09/17 09:00 05/09/17 09:20 Glimepiride (Amaryl) 4 mg BIDWMEALS PO 05/08/17 21:30 05/09/17 09:19 Fentanyl Citrate (Fentanyl 2ml Vial) 50 mcg PRN Q1HR PRN IV PAIN 05/09/17 07:30 05/09/17 09:18 Tizanidine HCl (Zanaflex) 2 mg PRN Q8HRS PRN PO MUSCLE SPASMS 05/09/17 09:00 05/09/17 09:20 ALLERGIES ALLERGIES: Coded Allergies: No Known Drug Allergies (Unverified , 05/08/17) ROS Review of System 14 point ROS conducted with pertinent positives noted above in HPI. PHYSICAL EXAM General: Alert, Oriented X3, Cooperative, No acute distress HEENT: Atraumatic, Mucous membr. moist/pink Lungs: Clear to auscultation, Normal air movement Heart: Regular rate, Normal S1, Normal S2, Other (2/6 systolic murmur ) Abdomen: Soft Extremities: No edema, Normal pulses Skin: No significant lesion Neuro: Normal speech, Sensation intact Psych/Mental Status: Mental status NL, Mood NL MUSCULOSKELETAL: Other (pain with active ROM of left shoulder. left neck tenderness upon palpitaton ) VITALS VITALS Vital Signs Date Time Temp Pulse Resp B/P (MAP) Pulse Ox O2 Delivery O2 Flow Rate FiO2 05/09/17 09:19 80 137/56 05/09/17 09:18 96 Room Air 05/09/17 07:00 97.7 18 97.7 LABS Lab: Laboratory Tests Test 05/08/17 12:32 05/08/17 20:29 05/09/17 06:05 05/09/17 07:35 White Blood Count 9.3 x10^3/uL (4.0-11.0) 5.3 x10^3/uL (4.0-11.0) Red Blood Count 4.07 x10^6/uL (3.50-5.40) 3.62 x10^6/uL (3.50-5.40) Hemoglobin 12.4 g/dL (12.0-15.5) 11.0 g/dL (12.0-15.5) Hematocrit 37.5 % (36.0-47.0) 33.4 % (36.0-47.0) Mean Corpuscular Volume 92 fL (79-100) 92 fL (79-100) Mean Corpuscular Hemoglobin 30 pg (25-35) 30 pg (25-35) Mean Corpuscular Hemoglobin Concent 33 g/dL (31-37) 33 g/dL (31-37) Red Cell Distribution Width 14.1 % (11.5-14.5) 14.1 % (11.5-14.5) Platelet Count 269 x10^3/uL (140-400) 233 x10^3/uL (140-400) Neutrophils (%) (Auto) 78 % (31-73) 62 % (31-73) Lymphocytes (%) (Auto) 14 % (24-48) 25 % (24-48) Monocytes (%) (Auto) 7 % (0-9) 12 % (0-9) Eosinophils (%) (Auto) 0 % (0-3) 1 % (0-3) Basophils (%) (Auto) 0 % (0-3) 0 % (0-3) Neutrophils # (Auto) 7.2 x10^3uL (1.8-7.7) 3.3 x10^3uL (1.8-7.7) Lymphocytes # (Auto) 1.3 x10^3/uL (1.0-4.8) 1.3 x10^3/uL (1.0-4.8) Monocytes # (Auto) 0.6 x10^3/uL (0.0-1.1) 0.6 x10^3/uL (0.0-1.1) Eosinophils # (Auto) 0.0 x10^3/uL (0.0-0.7) 0.1 x10^3/uL (0.0-0.7) Basophils # (Auto) 0.0 x10^3/uL (0.0-0.2) 0.0 x10^3/uL (0.0-0.2) D-Dimer (Kimmie) 0.54 ug/mlFEU (0.00-0.50) Sodium Level 135 mmol/L (136-145) 138 mmol/L (136-145) Potassium Level 4.5 mmol/L (3.5-5.1) 3.4 mmol/L (3.5-5.1) Chloride Level 98 mmol/L (98-107) 101 mmol/L (98-107) Carbon Dioxide Level 26 mmol/L (21-32) 29 mmol/L (21-32) Anion Gap 11 (6-14) 8 (6-14) Blood Urea Nitrogen 14 mg/dL (7-20) 10 mg/dL (7-20) Creatinine 1.0 mg/dL (0.6-1.0) 0.8 mg/dL (0.6-1.0) Estimated GFR (Cockcroft-Gault) 64.9 83.9 Glucose Level 207 mg/dL (70-99) 148 mg/dL (70-99) Calcium Level 9.7 mg/dL (8.5-10.1) 9.2 mg/dL (8.5-10.1) Total Bilirubin 0.2 mg/dL (0.2-1.0) 0.3 mg/dL (0.2-1.0) Direct Bilirubin 0.1 mg/dL (0.0-0.2) Aspartate Amino Transf (AST/SGOT) 22 U/L (15-37) 41 U/L (15-37) Alanine Aminotransferase (ALT/SGPT) 10 U/L (14-59) 10 U/L (14-59) Alkaline Phosphatase 60 U/L (46-116) 51 U/L (46-116) Troponin I Quantitative < 0.017 ng/mL (0.000-0.055) BR-Txn-L-Type Natriuretic Peptide 770 pg/mL (0-449) Total Protein 8.2 g/dL (6.4-8.2) 7.8 g/dL (6.4-8.2) Albumin 3.9 g/dL (3.4-5.0) 3.3 g/dL (3.4-5.0) Glucose (Fingerstick) 277 mg/dL (70-99) BUN/Creatinine Ratio 13 (6-20) Albumin/Globulin Ratio 0.7 (1.0-1.7) Test 05/09/17 07:58 Glucose (Fingerstick) 147 mg/dL (70-99) ASSESSMENT/PLAN ASSESSMENT/PLAN 1. Left shoulder/neck pain/ osteoarthritis 2. Abnormal EKG 3. CAD with reported chronic total occlusion being medically managed. 4. Hypertension 5. Hypokalemia 6. Diabetes 7. Hypothyroidism Recommendations Continue secondary prevention measures including ASA, BB, and statin Repeat troponin level and EKG. check lipids Check echo to assess LV function Obtain cardiac records from Dr. Horne's office. Further recommendations pending review of records Problems: SANGEETHA GUTIÉRREZ MD 05/09/17 2146: CARDIAC CONSULT ALLERGIES ALLERGIES: Coded Allergies: No Known Drug Allergies (Unverified , 05/08/17) ASSESSMENT/PLAN ASSESSMENT/PLAN Pt. seen and examined. 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 76 y.o woman with NSTEMI. Underwent cath, has 3V CAD Needs viability study 'Further plans pending this. CT surg consult pending. Problems: HARVINDER CHAMPAGNE APRN May 09, 2017 09:44 SANGEETHA GUTIÉRREZ MD May 09, 2017 21:46
[2017-05-09] MEDS ORDERED: POTASSIUM CHLORIDE 20 MEQ TABLET.ER. PO ONE (09:45)
[2017-05-09] MEDS ORDERED: diazePAM 5 MG TABLET PO ONE (10:30)
[2017-05-09] MEDS ORDERED: methylPREDNISolone 4 MG TABLET. PO SCH ×2 (10:30→12:30)
[2017-05-09] MEDS: PANTOPRAZOLE 40 MG TABLET.DR. PO SCH (11:00)
[2017-05-09] MEDS: FAMOTIDINE 20 MG TABLET. PO SCH ×2 (11:00→21:53)
[2017-05-09 11:11] LABS: CHOLESTEROL/HDL RATIO 2.3
--- NOTE | 2017-05-09 11:43 | EKG ---
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
[2017-05-09] MEDS ORDERED: LIDOCAINE 2% 20 ML VIAL. ONE (14:11)
[2017-05-09] MEDS ORDERED: HEPARIN for ARTERIAL LINE 1,500 ML ONE (14:11)
[2017-05-09] MEDS ORDERED: IODIXANOL 320 MG/ML 100 ML VIAL. ONE ×2 (14:11)
[2017-05-09] MEDS ORDERED: VERAPAMIL 5 MG/2 ML VIAL. ONE (14:44)
[2017-05-09] MEDS ORDERED: NITROGLYCERIN 200 MCG/2 ML SYRINGE FOR CATH/VASC LAB. ONE (14:44)
[2017-05-09] MEDS ORDERED: HEPARIN for IV BOLUS 10,000 UNIT/10 ML VIAL. ONE (14:45)
[2017-05-09] MEDS ORDERED: MIDAZOLAM HCL/PF 2 MG/2 ML VIAL. ONE (14:45)
[2017-05-09] MEDS ORDERED: fentaNYL PF VIAL 100 MCG/2 ML VIAL ONE (14:45)
[2017-05-09] MEDS ORDERED: LIDOCAINE 2% 20 ML VIAL. IJ ONE (15:15)
[2017-05-09] MEDS ORDERED: VERAPAMIL 5 MG/2 ML VIAL. IART ONE (15:15)
[2017-05-09] MEDS ORDERED: IODIXANOL 320 MG/ML 100 ML VIAL. IART ONE (15:15)
[2017-05-09] MEDS ORDERED: fentaNYL PF VIAL 100 MCG/2 ML VIAL IV ONE (15:15)
[2017-05-09] MEDS ORDERED: HEPARIN for IV BOLUS 10,000 UNIT/10 ML VIAL. IART ONE (15:15)
[2017-05-09] MEDS ORDERED: MIDAZOLAM HCL/PF 2 MG/2 ML VIAL. IV ONE (15:15)
[2017-05-09] MEDS ORDERED: NITROGLYCERIN 200 MCG/2 ML SYRINGE FOR CATH/VASC LAB. IART ONE (15:15)
[2017-05-09] MEDS ORDERED: CONTRAST GIVEN MC PRN (15:30)
--- NOTE | 2017-05-09 15:54 | CARD ---
APPROVED REPORT Procedure(s) performed: LEFT HEART CATHERIZATION, Coronary angiography, Left ventriculography. SEDATION TIME: 41 MINUTES HISTORY The patient is a 76 year-old female with a history of : previous OH, previous CHF, coronary artery di sease, hypertension, dyslipidemia. INDICATION The indication(s) include : non-STEMI (>6 hrs to = 12 hrs). CASE TECHNIQUE During this case, Fluoroscopy and low osmolar contrast were used for imaging. PROCEDURE NARRATIVE The patient was brought electively to the cardiac catheterization lab. A timeout was performed confi rming the patient's name, date of , procedure, and site of procedure. All necessary personnel w ere wearing the appropriate protective equipment and radiation monitor devices. After explaining the risks and benefits of the procedure and alternatives, informed consent was obtained. (See nursing no alea for medications administered). The right wrist was sterilely prepped and draped in the usual fas hion. The right wrist was infiltrated with 1 mL of 2% lidocaine for subcutaneous anesthesia. A 6 Fr ench Terumo glide sheath was inserted into the right radial artery without difficulty. Right and lef t coronary angiography was performed using a 6Fr TIG 4.0 catheter. Left ventricular end diastolic pr essure was obtained with a pigtail catheter and pullback was performed after left ventriculography. All catheter exchanges and advancements were performed over a guidewire. At case completion the righ t radial sheath was removed and a Terumo radial band was applied with 13 ml of air. The patient tole rated the procedure well and there were no immediate complications. HEMODYNAMICS: LVEDP 13 mm Hg No gradient on LV to aortic pullback. LEFT VENTRICULOGRAM: EF 25% *Severe global hypokinesis. Apical aneurysm CORONARY ANGIOGRAPHY: LM is a moderate caliber vessel with a distal 20% stenosis. LAD is proximally occluded. The mid to distal vessel is small in caliber and fills via left to left c ollaterals. D1 is a moderate caliber vessel with an ostial 80% stenosis. LCx is a moderate caliber non-dominant vessel mild luminal irregularities. OM1 is a moderate caliber vessel with proximal and mid 70% stenosis. RCA is a large caliber dominant heavily calcified vessel with a mid 100% occlusion. The distal vessel fills via right to right and left to right collaterals. Conclusion 1. Severe [place]ales 3V CAD 2. Severe LV dysfunction. EF 25% Recommendations Viability assessment then consideration for CABG versus JOURNALISM INTERN PCI or medical management based on result s Await [place] records. Heparin gtt per [facility] protocol.
[2017-05-09] MEDS ORDERED: HEPARIN for IV BOLUS 10,000 UNIT/10 ML VIAL. IV PRN (16:00)
[2017-05-09] MEDS ORDERED: HEPARIN 25,000UTS/500ML PREMIX 500 ML IV PRN (16:00)
[2017-05-09] MEDS ORDERED: ANTI-COAG MONITOR BY PHARMACY. MC PRN (16:15)
--- NOTE | 2017-05-09 17:12 | PDOC ---
PULMONARY PROGRESS NOTES Vitals Vital Signs Date Time Temp Pulse Resp B/P (MAP) Pulse Ox O2 Delivery O2 Flow Rate FiO2 05/09/17 17:00 78 98 05/09/17 15:59 147/75 (99) Room Air 05/09/17 15:27 16 2.0 05/09/17 11:00 97.5 97.5 Labs Laboratory Tests Test 05/08/17 12:32 05/08/17 20:29 05/09/17 06:05 05/09/17 07:35 White Blood Count 9.3 x10^3/uL (4.0-11.0) 5.3 x10^3/uL (4.0-11.0) Red Blood Count 4.07 x10^6/uL (3.50-5.40) 3.62 x10^6/uL (3.50-5.40) Hemoglobin 12.4 g/dL (12.0-15.5) 11.0 g/dL (12.0-15.5) Hematocrit 37.5 % (36.0-47.0) 33.4 % (36.0-47.0) Mean Corpuscular Volume 92 fL (79-100) 92 fL (79-100) Mean Corpuscular Hemoglobin 30 pg (25-35) 30 pg (25-35) Mean Corpuscular Hemoglobin Concent 33 g/dL (31-37) 33 g/dL (31-37) Red Cell Distribution Width 14.1 % (11.5-14.5) 14.1 % (11.5-14.5) Platelet Count 269 x10^3/uL (140-400) 233 x10^3/uL (140-400) Neutrophils (%) (Auto) 78 % (31-73) 62 % (31-73) Lymphocytes (%) (Auto) 14 % (24-48) 25 % (24-48) Monocytes (%) (Auto) 7 % (0-9) 12 % (0-9) Eosinophils (%) (Auto) 0 % (0-3) 1 % (0-3) Basophils (%) (Auto) 0 % (0-3) 0 % (0-3) Neutrophils # (Auto) 7.2 x10^3uL (1.8-7.7) 3.3 x10^3uL (1.8-7.7) Lymphocytes # (Auto) 1.3 x10^3/uL (1.0-4.8) 1.3 x10^3/uL (1.0-4.8) Monocytes # (Auto) 0.6 x10^3/uL (0.0-1.1) 0.6 x10^3/uL (0.0-1.1) Eosinophils # (Auto) 0.0 x10^3/uL (0.0-0.7) 0.1 x10^3/uL (0.0-0.7) Basophils # (Auto) 0.0 x10^3/uL (0.0-0.2) 0.0 x10^3/uL (0.0-0.2) D-Dimer (Kimmie) 0.54 ug/mlFEU (0.00-0.50) Sodium Level 135 mmol/L (136-145) 138 mmol/L (136-145) Potassium Level 4.5 mmol/L (3.5-5.1) 3.4 mmol/L (3.5-5.1) Chloride Level 98 mmol/L (98-107) 101 mmol/L (98-107) Carbon Dioxide Level 26 mmol/L (21-32) 29 mmol/L (21-32) Anion Gap 11 (6-14) 8 (6-14) Blood Urea Nitrogen 14 mg/dL (7-20) 10 mg/dL (7-20) Creatinine 1.0 mg/dL (0.6-1.0) 0.8 mg/dL (0.6-1.0) Estimated GFR (Cockcroft-Gault) 64.9 83.9 Glucose Level 207 mg/dL (70-99) 148 mg/dL (70-99) Calcium Level 9.7 mg/dL (8.5-10.1) 9.2 mg/dL (8.5-10.1) Total Bilirubin 0.2 mg/dL (0.2-1.0) 0.3 mg/dL (0.2-1.0) Direct Bilirubin 0.1 mg/dL (0.0-0.2) Aspartate Amino Transf (AST/SGOT) 22 U/L (15-37) 41 U/L (15-37) Alanine Aminotransferase (ALT/SGPT) 10 U/L (14-59) 10 U/L (14-59) Alkaline Phosphatase 60 U/L (46-116) 51 U/L (46-116) Troponin I Quantitative < 0.017 ng/mL (0.000-0.055) 2.991 ng/mL (0.000-0.055) EE-Tku-H-Type Natriuretic Peptide 770 pg/mL (0-449) Total Protein 8.2 g/dL (6.4-8.2) 7.8 g/dL (6.4-8.2) Albumin 3.9 g/dL (3.4-5.0) 3.3 g/dL (3.4-5.0) Glucose (Fingerstick) 277 mg/dL (70-99) BUN/Creatinine Ratio 13 (6-20) Albumin/Globulin Ratio 0.7 (1.0-1.7) Triglycerides Level 68 mg/dL (0-150) Cholesterol Level 152 mg/dL (0-200) LDL Cholesterol, Calculated 71 mg/dL (0-100) VLDL Cholesterol, Calculated 14 mg/dL (0-40) Non-HDL Cholesterol Calculated 85 mg/dL (0-129) HDL Cholesterol 67 mg/dL (40-60) Cholesterol/HDL Ratio 2.3 Test 05/09/17 07:58 05/09/17 11:45 05/09/17 11:54 Glucose (Fingerstick) 147 mg/dL (70-99) 214 mg/dL (70-99) Troponin I Quantitative 2.162 ng/mL (0.000-0.055) Thyroid Stimulating Hormone (TSH) 5.597 uIU/mL (0.358-3.74) Laboratory Tests Test 05/08/17 20:29 05/09/17 06:05 05/09/17 07:35 05/09/17 07:58 Glucose (Fingerstick) 277 mg/dL (70-99) 147 mg/dL (70-99) Sodium Level 138 mmol/L (136-145) Potassium Level 3.4 mmol/L (3.5-5.1) Chloride Level 101 mmol/L (98-107) Carbon Dioxide Level 29 mmol/L (21-32) Anion Gap 8 (6-14) Blood Urea Nitrogen 10 mg/dL (7-20) Creatinine 0.8 mg/dL (0.6-1.0) Estimated GFR (Cockcroft-Gault) 83.9 BUN/Creatinine Ratio 13 (6-20) Glucose Level 148 mg/dL (70-99) Calcium Level 9.2 mg/dL (8.5-10.1) Total Bilirubin 0.3 mg/dL (0.2-1.0) Aspartate Amino Transf (AST/SGOT) 41 U/L (15-37) Alanine Aminotransferase (ALT/SGPT) 10 U/L (14-59) Alkaline Phosphatase 51 U/L (46-116) Troponin I Quantitative 2.991 ng/mL (0.000-0.055) Total Protein 7.8 g/dL (6.4-8.2) Albumin 3.3 g/dL (3.4-5.0) Albumin/Globulin Ratio 0.7 (1.0-1.7) Triglycerides Level 68 mg/dL (0-150) Cholesterol Level 152 mg/dL (0-200) LDL Cholesterol, Calculated 71 mg/dL (0-100) VLDL Cholesterol, Calculated 14 mg/dL (0-40) Non-HDL Cholesterol Calculated 85 mg/dL (0-129) HDL Cholesterol 67 mg/dL (40-60) Cholesterol/HDL Ratio 2.3 White Blood Count 5.3 x10^3/uL (4.0-11.0) Red Blood Count 3.62 x10^6/uL (3.50-5.40) Hemoglobin 11.0 g/dL (12.0-15.5) Hematocrit 33.4 % (36.0-47.0) Mean Corpuscular Volume 92 fL (79-100) Mean Corpuscular Hemoglobin 30 pg (25-35) Mean Corpuscular Hemoglobin Concent 33 g/dL (31-37) Red Cell Distribution Width 14.1 % (11.5-14.5) Platelet Count 233 x10^3/uL (140-400) Neutrophils (%) (Auto) 62 % (31-73) Lymphocytes (%) (Auto) 25 % (24-48) Monocytes (%) (Auto) 12 % (0-9) Eosinophils (%) (Auto) 1 % (0-3) Basophils (%) (Auto) 0 % (0-3) Neutrophils # (Auto) 3.3 x10^3uL (1.8-7.7) Lymphocytes # (Auto) 1.3 x10^3/uL (1.0-4.8) Monocytes # (Auto) 0.6 x10^3/uL (0.0-1.1) Eosinophils # (Auto) 0.1 x10^3/uL (0.0-0.7) Basophils # (Auto) 0.0 x10^3/uL (0.0-0.2) Test 05/09/17 11:45 05/09/17 11:54 Troponin I Quantitative 2.162 ng/mL (0.000-0.055) Thyroid Stimulating Hormone (TSH) 5.597 uIU/mL (0.358-3.74) Glucose (Fingerstick) 214 mg/dL (70-99) Medications Active Scripts Medications Dose Route/Sig Max Daily Dose Days Date Category Dose Instructions Metformin Hcl 850 Mg Tablet 850 Mg PO BIDWMEALS 05/09/17 Rx Hold until 04/09/17 and then start BID Tizanidine Hcl 2 Mg Capsule 2 Mg PO PRN Q8HRS PRN 05/09/17 Rx Tramadol Hcl 50 Mg Tablet 90 Mg PO Q6H PRN 05/09/17 Rx Glimepiride 4 Mg Tablet 1 Tab PO BID 05/08/17 Reported Vitamin D3 (Cholecalciferol (Vitamin D3)) 1,000 Unit Tablet 1 Tab PO DAILY 05/08/17 Reported Vitamin B-12 (Cyanocobalamin (Vitamin B-12)) 1,000 Mcg Tablet.er 1,000 Mcg PO DAILY 05/08/17 Reported Caltrate 600 + D Tablet (Calcium Carbonate/Vitamin D3) 1 Each Tablet 1 Each PO DAILY 05/08/17 Reported Centrum Adults Tablet (Multivitamin/Iron/Folic Acid) 1 Each Tablet 1 Each PO DAILY 05/08/17 Reported Methimazole 10 Mg Tablet 5 Mg PO Q8HRS 05/08/17 Reported Simvastatin 20 Mg Tablet 1 Tab PO QHS 05/08/17 Reported Carvedilol 3.125 Mg Tablet 1 Tab PO BID 05/08/17 Reported Aspir 81 (Aspirin) 81 Mg Tablet.dr 81 Mg PO 05/08/17 Reported Impression . PT SEEN CONSULT DICTATED PULMONARY FIBROSIS MILD NO FURTHER WORK UP NEEDED RULE OUT JS CHECK NOCTURNAL DESAT 6 MIN WALK PRIOR TO D/C AMINA MADRID MD May 09, 2017 17:12
[2017-05-09] MEDS: SIMVASTATIN 20 MG TABLET PO SCH (21:54)
--- NOTE | 2017-05-09 23:39 | CONS ---
DATE OF CONSULTATION: 05/09/2017 ATTENDING PHYSICIAN: Dr. Zach Patterson. The patient was seen at the request of Dr. Patterson for rehab evaluation. She is in room 412. HISTORY: This is a 76-year-old right-handed female who lives alone since her last year. The patient is having pain over left side of her neck going to her left upper back for the last one week. The patient denies any numbness, tingling sensation in the extremities or any injury. The patient admits some balance problems. She uses cart when she goes for shopping. She does not use any assistive devices at home. She usually sleeps in a recliner since her . The patient with known coronary artery disease, congestive heart failure with systolic ejection fraction of 20%, diastolic with biventricular enlargement noted by an echo in 08/2015, hypertension, hyperlipidemia, diverticulosis, gastroesophageal reflux disease, internal hemorrhoids, anemia from B12 deficiency, anxiety, degenerative joint disease of her knees, status post arthroscopic debridement of left knee done by Dr. Dang about 20 years ago, chronic renal insufficiency, chronic kidney disease stage 2, diabetes mellitus type 2, hypothyroidism. The patient is status post bladder lift with oophorectomy ____ in 2009. The patient is not known allergic to any medication. She denies any trouble with her bowel or bladder control at present time. The patient had radiological studies done including CTA which failed to reveal any acute abnormalities. Cervical spine x-rays revealed grade 1 anterolisthesis of C4-C5 degenerative facet arthropathy at this level and also moderate degenerative disk space narrowing and moderate degenerative endplate spurring at C5-C6, mild degenerative disk space narrowing and moderate degenerative endplate spurring at C6-C7. The patient also had moderate primary degenerative osteoarthritis left shoulder, mainly at AC joint. The patient had normal chest x-ray. PHYSICAL EXAMINATION: Today revealed an elderly female, she is alert, oriented to time, place, person and circumstance and follows commands appropriately. She had painful limited movements of her cervical spine with tenderness to palpation over left cervical paraspinal muscles extending over to upper thoracic paraspinal muscles and posterior shoulder girdle muscles. The patient had 5/5 grade muscle strength in her upper and lower extremities. Deep tendon reflexes are decreased over all. She had equal perception of touch and pinprick sensation bilaterally. She had some limitation of left shoulder abduction at extremes. The patient had a crepitus on range of motion of both shoulders and knee joints with some degree of knee joint effusion. She is independent with bed mobility and transfers. She walks with somewhat wide-based gait and she had difficulty to try to walk on her tiptoes and on her heels and try to walk on a straight line, 1 foot in front of other. Her skin is intact at this time. ASSESSMENT: Degenerative disk disease and degenerative joint disease of cervical vertebrae with recent cervical sprain with left cervical radiculitis to rule out any herniated nucleus pulposus. She also presents with high level balance problems probably from peripheral neuropathy to rule out associated cervical spinal stenosis causing her balance problems. She also presents with degenerative joint disease of left shoulder and both knees without any significant discomfort. RECOMMENDATIONS: To start her on Medrol Dosepak, ask physical therapy to see her to arrange for outpatient physical therapy and to obtain MRI scan of her cervical vertebrae to rule out any herniated nucleus pulposus. She might need to use a cane or walker while up walking secondary to her balance problems. Dr. Patterson appreciate asking me to participate in the care of this interesting patient. I will be glad to follow her with you as needed for her rehabilitation. KIRAN IVEY MD DR: QUITA/juan JOB#: [id number] / [id number]
--- NOTE | 2017-05-10 00:48 | CONS ---
DATE OF CONSULTATION: 05/09/2017 ATTENDING PHYSICIAN: Dr. Abraham. DICTATING PHYSICIAN: Dr. Amina Madrid. REASON FOR CONSULTATION: The patient seen in pulmonary consultation at the request of Dr. Abraham for abnormal CT of the chest. HISTORY OF PRESENT ILLNESS: The patient is a 76-year-old female that was admitted with complaints of chest discomfort. She has a history of coronary artery disease, chronic heart failure, systolic ejection fraction 20%. She underwent CT angiogram on 05/08/2017. I have reviewed the CT, there was no evidence of pulmonary embolism. There was some mild interstitial pulmonary fibrosis in the lower zones. I was asked to see the patient in consultation. The patient has been short of breath related to CHF. She has some lower extremity edema. She underwent a coronary angiogram today and was found to have severe alutiiq 3-vessel coronary artery disease, severe LV dysfunction. It was recommended that she undergo viability assessment and mainly consider for bypass versus PCI or medical management. The patient denies fever, chills or productive cough. REVIEW OF SYSTEMS: As indicated above, otherwise, a 10-point system was reviewed and negative. Her sleep hygiene revealed evidence of snoring, apnea, excessive daytime sleepiness and waking frequently throughout the night. She has never had a sleep study. PAST MEDICAL HISTORY: Remarkable for coronary artery disease; cardiomyopathy, ejection fraction 20%; chronic heart failure; hyperlipidemia; hypertension; diverticulosis; gastric esophageal reflux; chronic anemia; anxiety; osteoarthritis; chronic renal failure; diabetes type 2 complicated with neuropathy and hypothyroidism. PAST SURGICAL HISTORY: Bilateral oophorectomy. She has had previous D and C. 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 FAMILY HISTORY: Remarkable for hypertension. ALLERGIES: No known drug allergies. PHYSICAL EXAMINATION: GENERAL: The patient was in no respiratory distress. VITAL SIGNS: Stable. O2 saturation greater than 92%, currently on 2 liters. HEENT: Eyes, the sclerae were nonicteric. NECK: Jugular venous distention was not elevated. No lymphadenopathy. CHEST: Full expansion. LUNGS: Adequate airway flow, no wheezes. CARDIOVASCULAR: Regular rate and rhythm with S1, S2, no S3. ABDOMEN: Soft, obese. EXTREMITIES: No clubbing, cyanosis. Minimal edema. NEUROLOGIC: The patient was awake, alert, following commands. A detailed neuro exam was not performed. CT of the chest reviewed as indicated above. LABORATORY DATA: Reviewed. IMPRESSION: 1. Bilateral mild pulmonary fibrosis best visualized on CT of the chest. 2. Cardiomyopathy, ejection fraction 20%. 3. Severe alutiiq 3-vessel coronary artery disease. 4. Severe left ventricular dysfunction. 5. Clinical presentation compatible with obstructive sleep apnea. 6. Diabetes. 7. Obesity. 8. Chronic renal insufficiency. PLAN: 1. We will check nocturnal desaturation study. 2. A 6-minute walk. 3. No further workup for the mild pulmonary fibrosis on a scale of . 4. Outpatient polysomnogram. 5. Follow Cardiology input. I do appreciate the privilege in sharing in the patient's care. AMINA MADRID MD DR: ABEL/juan JOB#: [id number] / [id number]
[2017-05-10 01:19] LABS: BASO % 0 % (0-3); EOS % 2 % (0-3); HEMATOCRIT 31.4 % (36.0-47.0); HEMOGLOBIN 10.3 g/dL (12.0-15.5); LYMPH # 1.8 x10^3/uL (1.0-4.8); LYMPH % 36 % (24-48); MEAN CORPUSCULAR HEMOGLOBIN 30 pg (25-35); MEAN CORPUSCULAR HGB CONC 33 g/dL (31-37); MEAN CORPUSCULAR VOLUME 92 fL (79-100); MONO % 11 % (0-9); NEUT % 52 % (31-73); PLATELET COUNT 226 x10^3/uL (140-400); RED CELL DISTRIBUTION WIDTH 14.1 % (11.5-14.5)
[2017-05-10 01:34] LABS: CALCIUM 8.1 mg/dL (8.5-10.1); CREATININE 0.8 mg/dL (0.6-1.0); GFR 83.9; MAGNESIUM 1.8 mg/dL (1.8-2.4); POTASSIUM 3.5 mmol/L (3.5-5.1)
[2017-05-10 04:33] VITALS: BP 128/73
[2017-05-10] MEDS: methIMAzole 10 MG TABLET PO SCH ×3 (06:34→21:20)
[2017-05-10 07:00] VITALS: BP 145/76
--- NOTE | 2017-05-10 08:17 | PDOC ---
KEYLANatalieANGELIQUE ESPINOZA COTTON PROGRAM TECHNICIAN 05/10/17 0817: IM PROGRESS NOTES- Subjective Subjective neck shoulder pain improved Objective Objective alert appropriate Vitals Vital Signs Date Time Temp Pulse Resp B/P (MAP) Pulse Ox O2 Delivery O2 Flow Rate FiO2 05/10/17 04:33 78 16 128/73 (91) 98 Room Air 05/09/17 23:05 97.8 97.8 05/09/17 15:27 2.0 Input & Output Intake and Output 05/10/17 07:00 Intake Total 340 ml Balance 340 ml Intake Oral 340 ml # Voids 2 Physical Exam Physical Exam General appearance - alert,well appearing, and in no distress Mental Status - alert, oriented to person, place, and time, affect appropriate to mood Head - normal Chest - baseline fine crackles R>L otherwise clear Heart - S1 and S2 normal Abdomen - soft, nontender, nondistended, no masses or organomegaly Neurological - no acute focal neurological deficit noted. Musculoskeletal - tenderness/pain decreasing with slight increase in ROM L shoulder Extremities - no pedal edema Skin - warm and dry Labs Laboratory Tests Test 05/08/17 12:32 05/08/17 20:29 05/09/17 06:05 05/09/17 07:35 White Blood Count 9.3 x10^3/uL (4.0-11.0) 5.3 x10^3/uL (4.0-11.0) Red Blood Count 4.07 x10^6/uL (3.50-5.40) 3.62 x10^6/uL (3.50-5.40) Hemoglobin 12.4 g/dL (12.0-15.5) 11.0 g/dL (12.0-15.5) Hematocrit 37.5 % (36.0-47.0) 33.4 % (36.0-47.0) Mean Corpuscular Volume 92 fL (79-100) 92 fL (79-100) Mean Corpuscular Hemoglobin 30 pg (25-35) 30 pg (25-35) Mean Corpuscular Hemoglobin Concent 33 g/dL (31-37) 33 g/dL (31-37) Red Cell Distribution Width 14.1 % (11.5-14.5) 14.1 % (11.5-14.5) Platelet Count 269 x10^3/uL (140-400) 233 x10^3/uL (140-400) Neutrophils (%) (Auto) 78 % (31-73) 62 % (31-73) Lymphocytes (%) (Auto) 14 % (24-48) 25 % (24-48) Monocytes (%) (Auto) 7 % (0-9) 12 % (0-9) Eosinophils (%) (Auto) 0 % (0-3) 1 % (0-3) Basophils (%) (Auto) 0 % (0-3) 0 % (0-3) Neutrophils # (Auto) 7.2 x10^3uL (1.8-7.7) 3.3 x10^3uL (1.8-7.7) Lymphocytes # (Auto) 1.3 x10^3/uL (1.0-4.8) 1.3 x10^3/uL (1.0-4.8) Monocytes # (Auto) 0.6 x10^3/uL (0.0-1.1) 0.6 x10^3/uL (0.0-1.1) Eosinophils # (Auto) 0.0 x10^3/uL (0.0-0.7) 0.1 x10^3/uL (0.0-0.7) Basophils # (Auto) 0.0 x10^3/uL (0.0-0.2) 0.0 x10^3/uL (0.0-0.2) D-Dimer (Kimmie) 0.54 ug/mlFEU (0.00-0.50) Sodium Level 135 mmol/L (136-145) 138 mmol/L (136-145) Potassium Level 4.5 mmol/L (3.5-5.1) 3.4 mmol/L (3.5-5.1) Chloride Level 98 mmol/L (98-107) 101 mmol/L (98-107) Carbon Dioxide Level 26 mmol/L (21-32) 29 mmol/L (21-32) Anion Gap 11 (6-14) 8 (6-14) Blood Urea Nitrogen 14 mg/dL (7-20) 10 mg/dL (7-20) Creatinine 1.0 mg/dL (0.6-1.0) 0.8 mg/dL (0.6-1.0) Estimated GFR (Cockcroft-Gault) 64.9 83.9 Glucose Level 207 mg/dL (70-99) 148 mg/dL (70-99) Calcium Level 9.7 mg/dL (8.5-10.1) 9.2 mg/dL (8.5-10.1) Total Bilirubin 0.2 mg/dL (0.2-1.0) 0.3 mg/dL (0.2-1.0) Direct Bilirubin 0.1 mg/dL (0.0-0.2) Aspartate Amino Transf (AST/SGOT) 22 U/L (15-37) 41 U/L (15-37) Alanine Aminotransferase (ALT/SGPT) 10 U/L (14-59) 10 U/L (14-59) Alkaline Phosphatase 60 U/L (46-116) 51 U/L (46-116) Troponin I Quantitative < 0.017 ng/mL (0.000-0.055) 2.991 ng/mL (0.000-0.055) WN-Zdo-G-Type Natriuretic Peptide 770 pg/mL (0-449) Total Protein 8.2 g/dL (6.4-8.2) 7.8 g/dL (6.4-8.2) Albumin 3.9 g/dL (3.4-5.0) 3.3 g/dL (3.4-5.0) Glucose (Fingerstick) 277 mg/dL (70-99) BUN/Creatinine Ratio 13 (6-20) Albumin/Globulin Ratio 0.7 (1.0-1.7) Triglycerides Level 68 mg/dL (0-150) Cholesterol Level 152 mg/dL (0-200) LDL Cholesterol, Calculated 71 mg/dL (0-100) VLDL Cholesterol, Calculated 14 mg/dL (0-40) Non-HDL Cholesterol Calculated 85 mg/dL (0-129) HDL Cholesterol 67 mg/dL (40-60) Cholesterol/HDL Ratio 2.3 Test 05/09/17 07:58 05/09/17 11:45 05/09/17 11:54 05/09/17 17:10 Glucose (Fingerstick) 147 mg/dL (70-99) 214 mg/dL (70-99) 189 mg/dL (70-99) Troponin I Quantitative 2.162 ng/mL (0.000-0.055) Thyroid Stimulating Hormone (TSH) 5.597 uIU/mL (0.358-3.74) Test 05/09/17 20:57 05/10/17 01:05 Glucose (Fingerstick) 275 mg/dL (70-99) White Blood Count 5.0 x10^3/uL (4.0-11.0) Red Blood Count 3.40 x10^6/uL (3.50-5.40) Hemoglobin 10.3 g/dL (12.0-15.5) Hematocrit 31.4 % (36.0-47.0) Mean Corpuscular Volume 92 fL (79-100) Mean Corpuscular Hemoglobin 30 pg (25-35) Mean Corpuscular Hemoglobin Concent 33 g/dL (31-37) Red Cell Distribution Width 14.1 % (11.5-14.5) Platelet Count 226 x10^3/uL (140-400) Neutrophils (%) (Auto) 52 % (31-73) Lymphocytes (%) (Auto) 36 % (24-48) Monocytes (%) (Auto) 11 % (0-9) Eosinophils (%) (Auto) 2 % (0-3) Basophils (%) (Auto) 0 % (0-3) Neutrophils # (Auto) 2.6 x10^3uL (1.8-7.7) Lymphocytes # (Auto) 1.8 x10^3/uL (1.0-4.8) Monocytes # (Auto) 0.5 x10^3/uL (0.0-1.1) Eosinophils # (Auto) 0.1 x10^3/uL (0.0-0.7) Basophils # (Auto) 0.0 x10^3/uL (0.0-0.2) Heparin Anti-Xa Act, Unfractionated 0.25 IU/mL (0.30-0.70) Sodium Level 141 mmol/L (136-145) Potassium Level 3.5 mmol/L (3.5-5.1) Chloride Level 104 mmol/L (98-107) Carbon Dioxide Level 31 mmol/L (21-32) Anion Gap 6 (6-14) Blood Urea Nitrogen 10 mg/dL (7-20) Creatinine 0.8 mg/dL (0.6-1.0) Estimated GFR (Cockcroft-Gault) 83.9 Glucose Level 179 mg/dL (70-99) Calcium Level 8.1 mg/dL (8.5-10.1) Magnesium Level 1.8 mg/dL (1.8-2.4) Laboratory Tests Test 05/09/17 07:58 05/09/17 11:45 05/09/17 11:54 05/09/17 17:10 Glucose (Fingerstick) 147 mg/dL (70-99) 214 mg/dL (70-99) 189 mg/dL (70-99) Troponin I Quantitative 2.162 ng/mL (0.000-0.055) Thyroid Stimulating Hormone (TSH) 5.597 uIU/mL (0.358-3.74) Test 05/09/17 20:57 05/10/17 01:05 Glucose (Fingerstick) 275 mg/dL (70-99) White Blood Count 5.0 x10^3/uL (4.0-11.0) Red Blood Count 3.40 x10^6/uL (3.50-5.40) Hemoglobin 10.3 g/dL (12.0-15.5) Hematocrit 31.4 % (36.0-47.0) Mean Corpuscular Volume 92 fL (79-100) Mean Corpuscular Hemoglobin 30 pg (25-35) Mean Corpuscular Hemoglobin Concent 33 g/dL (31-37) Red Cell Distribution Width 14.1 % (11.5-14.5) Platelet Count 226 x10^3/uL (140-400) Neutrophils (%) (Auto) 52 % (31-73) Lymphocytes (%) (Auto) 36 % (24-48) Monocytes (%) (Auto) 11 % (0-9) Eosinophils (%) (Auto) 2 % (0-3) Basophils (%) (Auto) 0 % (0-3) Neutrophils # (Auto) 2.6 x10^3uL (1.8-7.7) Lymphocytes # (Auto) 1.8 x10^3/uL (1.0-4.8) Monocytes # (Auto) 0.5 x10^3/uL (0.0-1.1) Eosinophils # (Auto) 0.1 x10^3/uL (0.0-0.7) Basophils # (Auto) 0.0 x10^3/uL (0.0-0.2) Heparin Anti-Xa Act, Unfractionated 0.25 IU/mL (0.30-0.70) Sodium Level 141 mmol/L (136-145) Potassium Level 3.5 mmol/L (3.5-5.1) Chloride Level 104 mmol/L (98-107) Carbon Dioxide Level 31 mmol/L (21-32) Anion Gap 6 (6-14) Blood Urea Nitrogen 10 mg/dL (7-20) Creatinine 0.8 mg/dL (0.6-1.0) Estimated GFR (Cockcroft-Gault) 83.9 Glucose Level 179 mg/dL (70-99) Calcium Level 8.1 mg/dL (8.5-10.1) Magnesium Level 1.8 mg/dL (1.8-2.4) Meds Current Medications Aspirin (Ecotrin) 81 mg DAILY PO Last administered on 05/09/17 09:19; Start at 09:00 Calcium/Vitamin D (Oscal D 500mg/ 200uts) 1 tab DAILYWBKFT PO Last administered on 05/09/17 09:20; Start 05/09/17 at 08:00 Cyanocobalamin (Vitamin B-12) 1,000 mcg DAILY PO Last administered on 09:22; Start 05/09/17 at 09:00 Diazepam (Valium) 5 mg 1X ONCE PO ; Start 05/09/17 at 10:30; Stop 05/09/17 at 10:31; Status DC Diclofenac Sodium (Voltaren) 1 becca QID TP Last administered on 05/09/17 23:32 ; Start 05/09/17 at 09:00 Famotidine (Pepcid) 20 mg BID PO Last administered on 05/09/17 21:53; Start at 11:00 Fentanyl Citrate (Fentanyl 2ml Vial) 50 mcg 1X ONCE IV Last administered on 15:25; Start 05/09/17 at 15:15; Stop 05/09/17 at 15:24; Status DC Fentanyl Citrate (Fentanyl 2ml Vial) 100 mcg STK-MED ONCE .ROUTE ; Start at 14:45; Stop 05/09/17 at 14:46; Status DC Heparin Sodium (Porcine) (Heparin Sodium) 2,050 unit PRN Q6HRS PRN IV FOR UFH LEVEL LESS THAN 0.2 Last administered on 05/09/17 18:38; Start 05/09/17 at 16: 00 Heparin Sodium (Porcine) (Heparin Sodium) 2,500 unit 1X ONCE IART Last administered on 05/09/17 15:26; Start 05/09/17 at 15:15; Stop 05/09/17 at 15:24 ; Status DC Heparin Sodium (Porcine) (Heparin Sodium) 10,000 unit STK-MED ONCE .ROUTE ; Start 05/09/17 at 14:45; Stop 05/09/17 at 14:46; Status DC Heparin Sodium/ Dextrose 500 ml @ 0 mls/hr CONT PRN IV SEE I/O RECORD Last administered on 05/09/17 18:45; Start 05/09/17 at 16:00 Heparin Sodium/ Sodium Chloride 1,000 unit 1X ONCE IART Last administered on 15:23; Start 05/09/17 at 15:15; Stop 05/09/17 at 15:24; Status DC Heparin Sodium/ Sodium Chloride 1,500 ml @ As Directed STK-MED ONCE .ROUTE ; Start 05/09/17 at 14:11; Stop 05/09/17 at 14:12; Status DC Info (Anti-Coagulation Monitoring By Pharmacy) 1 each PRN DAILY PRN MC SEE COMMENTS; Start 05/09/17 at 16:15 Info (Do NOT chart on this entry -- for MONITORING) 1 each PRN DAILY PRN MC SEE COMMENTS; Start 05/09/17 at 15:30; Stop 05/11/17 at 15:29 Iodixanol (Visipaque 320) 98 ml 1X ONCE IART Last administered on 05/09/17 15 :24; Start 05/09/17 at 15:15; Stop 05/09/17 at 15:24; Status DC Iodixanol (Visipaque 320) 100 ml STK-MED ONCE .ROUTE ; Start 05/09/17 at 14:11; Stop 05/09/17 at 14:12; Status DC Iodixanol (Visipaque 320) 100 ml STK-MED ONCE .ROUTE ; Start 05/09/17 at 14:11; Stop 05/09/17 at 14:12; Status DC Lidocaine HCl 1 ml 1X ONCE IJ Last administered on 05/09/17t 15:26; Start at 15:15; Stop 05/09/17 at 15:24; Status DC Lidocaine HCl 20 ml STK-MED ONCE .ROUTE ; Start 05/09/17 at 14:11; Stop at 14:12; Status DC Metformin HCl (Glucophage) 850 mg BIDWMEALS PO ; Start 05/11/17 at 17:00 Methylprednisolone (Medrol) 4 mg BID PO ; Start 05/13/17 at 09:00; Stop 05/13/17 at 09:00; Status DC Methylprednisolone (Medrol) 4 mg BIDPCLD PO ; Start 05/09/17 at 12:30; Stop at 17:05; Status DC Methylprednisolone (Medrol) 4 mg DAILY PO ; Start 05/14/17 at 09:00; Stop at 09:00; Status DC Methylprednisolone (Medrol) 4 mg QIDAFTMEAL PO ; Start 05/11/17 at 09:00; Stop at 09:00; Status DC Methylprednisolone (Medrol) 4 mg TID PO ; Start 05/12/17 at 09:00; Stop 05/12/17 at 09:00; Status DC Methylprednisolone (Medrol) 4 mg TIDPC PO ; Start 05/10/17 at 08:30; Stop at 08:30; Status DC Methylprednisolone (Medrol) 8 mg BID PO ; Start 05/09/17 at 10:30; Stop at 17:05; Status DC Methylprednisolone (Medrol) 8 mg QHS PO ; Start 05/10/17 at 21:00; Stop 05/10/17 at 21:00; Status DC Midazolam HCl (Versed) 1 mg 1X ONCE IV Last administered on 05/09/17t 15:25; Start 05/09/17 at 15:15; Stop 05/09/17 at 15:24; Status DC Midazolam HCl (Versed) 2 mg STK-MED ONCE .ROUTE ; Start 05/09/17 at 14:45; Stop 05/09/17 at 14:46; Status DC Multivitamins (Thera M Plus) 1 tab DAILY PO Last administered on 05/09/17 09: 20; Start 05/09/17 at 09:00 Nitroglycerin (Nitroglycerin) 200 mcg 1X ONCE IART Last administered on 15:24; Start 05/09/17 at 15:15; Stop 05/09/17 at 15:24; Status DC Nitroglycerin (Nitroglycerin) 200 mcg STK-MED ONCE .ROUTE ; Start 05/09/17 at 14 :44; Stop 05/09/17 at 14:45; Status DC Pantoprazole Sodium (Protonix) 40 mg DAILYAC PO ; Start 05/09/17 at 11:00 Potassium Chloride (Klor-Con) 20 meq 1X ONCE PO ; Start 05/09/17 at 09:45; Stop 05/09/17 at 09:46; Status DC Tizanidine HCl (Zanaflex) 2 mg PRN Q8HRS PRN PO MUSCLE SPASMS Last administered on 05/09/17 09:20; Start 05/09/17 at 09:00 Verapamil HCl (Verapamil) 2.5 mg 1X ONCE IART Last administered on 05/09/17 15:24; Start 05/09/17 at 15:15; Stop 05/09/17 at 15:24; Status DC Verapamil HCl (Verapamil) 5 mg STK-MED ONCE .ROUTE ; Start 05/09/17 at 14:44; Stop 05/09/17 at 14:45; Status DC Vitamin D (Vitamin D3) 1,000 unit DAILY PO Last administered on 05/09/17 09:00 ; Start 05/09/17 at 09:00 Assessment Assessment 1. NSTEMI with 3V CAD 2. L sided neck pain radiating to L scapula 3. L shoulder pain/L wrist pain acute on chronic 4. hypertensive urgency 5. Non ischemicCM with CHF biventricular enlargement, systolic EF 20% and diastolic chronic 2014 ECHO 6. DM II non insulin with neuropathy 7. hypothyroid 8. hyperlipidemia 9. GERD 10. diverticulosis 11. 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 OA cervical spine 14. internal hemorrhoid PLAN: NSTEMI/CAD POA h/o CAD +ASA cardiology consult admit troponin 0.017 Peak 2.991 heparin gttt CV consult CC 05/09 severe 3VD EF 25% Admit EKG ST non spec ST changes Viability study pending neck pain Physiatry consult voltaren gel topical QID tizanidine 2mg q8hr prn MRI pending Medrol Dose calvin -protonix initiated per Dr. Llamas, will stop Pepcid CHF not acute admit wt 181# +BB neg EVANS/RAISSA BNP 770 ECHO pending EF 20% per ECHO 2014 HTN urgency improved with pain control continue home meds abnormal CT angio pulmonary consult will need PFTs-if surgery, pre surgery sleep study OP nocturnal RA sat pending 6min walk pending CKD II/hyponatremia Admit Na 135 141 BUN 26 10 Cr 1.0 0.6 K 4.5 3.5 Mg 1.8 monitor DM II SSI/FSBS hold metformin [address] angio-DC metformin due to potential OHS continue glimepiride BS 179-214 FSBS SSI mod intensity -steroid induced hyperglycemia abnormal TSH stress induced, follow up OP in 3 months DVT/GI prophylaxis SCD/ELIZABETH-ambulate Pepcid bid DC 05/10 PPI 05/09/17 anemia Admit Hgb 12.4 05/10 10.3 check stool OB no overt bleeding heparin gtt For further plan of care, please refer to the orders. Plan Plan For more details regarding further plans, please refer to the orders. LOIDA REID MD 05/10/17 0853: IM PROGRESS NOTES- Assessment Assessment The patient was seen and examined by me. Chart reviewed and plan of care formulated. Discussed with, reviewed and agree with TELEPHONE PLANT POWER OPERATOR's notes, plan of care and orders with modifications as necessary. For more details regarding further plans, please refer to the orders. D/w patient today, yesterday. ANGELIQUE LE APRN May 10, 2017 08:17 LOIDA REID MD May 10, 2017 08:53
[2017-05-10] MEDS ORDERED: methylPREDNISolone 4 MG TABLET. PO SCH ×2 (08:30→21:00)
[2017-05-10] MEDS: MULTIVITAMIN with MINERAL TABLET. PO SCH (08:52)
[2017-05-10] MEDS: CYANOCOBALAMIN (VITAMIN B-12) 1,000 MCG TABLET. PO SCH (08:53)
[2017-05-10] MEDS: DICLOFENAC SODIUM 1% TOPICAL GEL 100GM TUBE. TP SCH ×4 (08:53→21:21)
[2017-05-10] MEDS: CARVEDILOL 3.125 MG TABLET. PO SCH ×2 (08:53→17:14)
[2017-05-10] MEDS: GLIMEPIRIDE 2 MG TABLET. PO SCH ×2 (08:53→17:15)
--- NOTE | 2017-05-10 09:14 | PDOC ---
PROGRESS NOTES Subjective Subjective She is worried about heart surgery and she denies any chest pain or SOB. Objective Objective Vital Signs Date Time Temp Pulse Resp B/P (MAP) Pulse Ox O2 Delivery O2 Flow Rate FiO2 05/10/17 08:53 88 145/79 05/10/17 07:00 97.6 20 98 Room Air 97.6 05/09/17 15:27 2.0 Intake and Output 05/10/17 07:00 Intake Total 340 ml Balance 340 ml Intake Oral 340 ml # Voids 2 Physical Exam Physical Exam She is supine in bed and does not seem to be in any significant distress.She continues with tenderness to palpation over left cervical paraspinal and posterior shoulder girdle muscles. Assessment Assessment Problems Medical Problems: (1) Back pain Status: Acute Plan Plan of Care Agree with present care plan. Comment Review of Relevant I have reviewed the following items ewa (where applicable) has been applied. Labs Laboratory Tests Test 05/08/17 12:32 05/08/17 20:29 05/09/17 06:05 05/09/17 07:35 White Blood Count 9.3 x10^3/uL (4.0-11.0) 5.3 x10^3/uL (4.0-11.0) Red Blood Count 4.07 x10^6/uL (3.50-5.40) 3.62 x10^6/uL (3.50-5.40) Hemoglobin 12.4 g/dL (12.0-15.5) 11.0 g/dL (12.0-15.5) Hematocrit 37.5 % (36.0-47.0) 33.4 % (36.0-47.0) Mean Corpuscular Volume 92 fL (79-100) 92 fL (79-100) Mean Corpuscular Hemoglobin 30 pg (25-35) 30 pg (25-35) Mean Corpuscular Hemoglobin Concent 33 g/dL (31-37) 33 g/dL (31-37) Red Cell Distribution Width 14.1 % (11.5-14.5) 14.1 % (11.5-14.5) Platelet Count 269 x10^3/uL (140-400) 233 x10^3/uL (140-400) Neutrophils (%) (Auto) 78 % (31-73) 62 % (31-73) Lymphocytes (%) (Auto) 14 % (24-48) 25 % (24-48) Monocytes (%) (Auto) 7 % (0-9) 12 % (0-9) Eosinophils (%) (Auto) 0 % (0-3) 1 % (0-3) Basophils (%) (Auto) 0 % (0-3) 0 % (0-3) Neutrophils # (Auto) 7.2 x10^3uL (1.8-7.7) 3.3 x10^3uL (1.8-7.7) Lymphocytes # (Auto) 1.3 x10^3/uL (1.0-4.8) 1.3 x10^3/uL (1.0-4.8) Monocytes # (Auto) 0.6 x10^3/uL (0.0-1.1) 0.6 x10^3/uL (0.0-1.1) Eosinophils # (Auto) 0.0 x10^3/uL (0.0-0.7) 0.1 x10^3/uL (0.0-0.7) Basophils # (Auto) 0.0 x10^3/uL (0.0-0.2) 0.0 x10^3/uL (0.0-0.2) D-Dimer (Kimmie) 0.54 ug/mlFEU (0.00-0.50) Sodium Level 135 mmol/L (136-145) 138 mmol/L (136-145) Potassium Level 4.5 mmol/L (3.5-5.1) 3.4 mmol/L (3.5-5.1) Chloride Level 98 mmol/L (98-107) 101 mmol/L (98-107) Carbon Dioxide Level 26 mmol/L (21-32) 29 mmol/L (21-32) Anion Gap 11 (6-14) 8 (6-14) Blood Urea Nitrogen 14 mg/dL (7-20) 10 mg/dL (7-20) Creatinine 1.0 mg/dL (0.6-1.0) 0.8 mg/dL (0.6-1.0) Estimated GFR (Cockcroft-Gault) 64.9 83.9 Glucose Level 207 mg/dL (70-99) 148 mg/dL (70-99) Calcium Level 9.7 mg/dL (8.5-10.1) 9.2 mg/dL (8.5-10.1) Total Bilirubin 0.2 mg/dL (0.2-1.0) 0.3 mg/dL (0.2-1.0) Direct Bilirubin 0.1 mg/dL (0.0-0.2) Aspartate Amino Transf (AST/SGOT) 22 U/L (15-37) 41 U/L (15-37) Alanine Aminotransferase (ALT/SGPT) 10 U/L (14-59) 10 U/L (14-59) Alkaline Phosphatase 60 U/L (46-116) 51 U/L (46-116) Troponin I Quantitative < 0.017 ng/mL (0.000-0.055) 2.991 ng/mL (0.000-0.055) CK-Bdz-K-Type Natriuretic Peptide 770 pg/mL (0-449) Total Protein 8.2 g/dL (6.4-8.2) 7.8 g/dL (6.4-8.2) Albumin 3.9 g/dL (3.4-5.0) 3.3 g/dL (3.4-5.0) Glucose (Fingerstick) 277 mg/dL (70-99) BUN/Creatinine Ratio 13 (6-20) Albumin/Globulin Ratio 0.7 (1.0-1.7) Triglycerides Level 68 mg/dL (0-150) Cholesterol Level 152 mg/dL (0-200) LDL Cholesterol, Calculated 71 mg/dL (0-100) VLDL Cholesterol, Calculated 14 mg/dL (0-40) Non-HDL Cholesterol Calculated 85 mg/dL (0-129) HDL Cholesterol 67 mg/dL (40-60) Cholesterol/HDL Ratio 2.3 Test 05/09/17 07:58 05/09/17 11:45 05/09/17 11:54 05/09/17 17:10 Glucose (Fingerstick) 147 mg/dL (70-99) 214 mg/dL (70-99) 189 mg/dL (70-99) Troponin I Quantitative 2.162 ng/mL (0.000-0.055) Thyroid Stimulating Hormone (TSH) 5.597 uIU/mL (0.358-3.74) Test 05/09/17 20:57 05/10/17 01:05 05/10/17 07:40 05/10/17 07:52 Glucose (Fingerstick) 275 mg/dL (70-99) 146 mg/dL (70-99) White Blood Count 5.0 x10^3/uL (4.0-11.0) Red Blood Count 3.40 x10^6/uL (3.50-5.40) Hemoglobin 10.3 g/dL (12.0-15.5) Hematocrit 31.4 % (36.0-47.0) Mean Corpuscular Volume 92 fL (79-100) Mean Corpuscular Hemoglobin 30 pg (25-35) Mean Corpuscular Hemoglobin Concent 33 g/dL (31-37) Red Cell Distribution Width 14.1 % (11.5-14.5) Platelet Count 226 x10^3/uL (140-400) Neutrophils (%) (Auto) 52 % (31-73) Lymphocytes (%) (Auto) 36 % (24-48) Monocytes (%) (Auto) 11 % (0-9) Eosinophils (%) (Auto) 2 % (0-3) Basophils (%) (Auto) 0 % (0-3) Neutrophils # (Auto) 2.6 x10^3uL (1.8-7.7) Lymphocytes # (Auto) 1.8 x10^3/uL (1.0-4.8) Monocytes # (Auto) 0.5 x10^3/uL (0.0-1.1) Eosinophils # (Auto) 0.1 x10^3/uL (0.0-0.7) Basophils # (Auto) 0.0 x10^3/uL (0.0-0.2) Heparin Anti-Xa Act, Unfractionated 0.25 IU/mL (0.30-0.70) 0.64 IU/mL (0.30-0.70) Sodium Level 141 mmol/L (136-145) Potassium Level 3.5 mmol/L (3.5-5.1) Chloride Level 104 mmol/L (98-107) Carbon Dioxide Level 31 mmol/L (21-32) Anion Gap 6 (6-14) Blood Urea Nitrogen 10 mg/dL (7-20) Creatinine 0.8 mg/dL (0.6-1.0) Estimated GFR (Cockcroft-Gault) 83.9 Glucose Level 179 mg/dL (70-99) Calcium Level 8.1 mg/dL (8.5-10.1) Magnesium Level 1.8 mg/dL (1.8-2.4) Laboratory Tests Test 05/09/17 11:45 05/09/17 11:54 05/09/17 17:10 05/09/17 20:57 Troponin I Quantitative 2.162 ng/mL (0.000-0.055) Thyroid Stimulating Hormone (TSH) 5.597 uIU/mL (0.358-3.74) Glucose (Fingerstick) 214 mg/dL (70-99) 189 mg/dL (70-99) 275 mg/dL (70-99) Test 05/10/17 01:05 05/10/17 07:40 05/10/17 07:52 White Blood Count 5.0 x10^3/uL (4.0-11.0) Red Blood Count 3.40 x10^6/uL (3.50-5.40) Hemoglobin 10.3 g/dL (12.0-15.5) Hematocrit 31.4 % (36.0-47.0) Mean Corpuscular Volume 92 fL (79-100) Mean Corpuscular Hemoglobin 30 pg (25-35) Mean Corpuscular Hemoglobin Concent 33 g/dL (31-37) Red Cell Distribution Width 14.1 % (11.5-14.5) Platelet Count 226 x10^3/uL (140-400) Neutrophils (%) (Auto) 52 % (31-73) Lymphocytes (%) (Auto) 36 % (24-48) Monocytes (%) (Auto) 11 % (0-9) Eosinophils (%) (Auto) 2 % (0-3) Basophils (%) (Auto) 0 % (0-3) Neutrophils # (Auto) 2.6 x10^3uL (1.8-7.7) Lymphocytes # (Auto) 1.8 x10^3/uL (1.0-4.8) Monocytes # (Auto) 0.5 x10^3/uL (0.0-1.1) Eosinophils # (Auto) 0.1 x10^3/uL (0.0-0.7) Basophils # (Auto) 0.0 x10^3/uL (0.0-0.2) Heparin Anti-Xa Act, Unfractionated 0.25 IU/mL (0.30-0.70) 0.64 IU/mL (0.30-0.70) Sodium Level 141 mmol/L (136-145) Potassium Level 3.5 mmol/L (3.5-5.1) Chloride Level 104 mmol/L (98-107) Carbon Dioxide Level 31 mmol/L (21-32) Anion Gap 6 (6-14) Blood Urea Nitrogen 10 mg/dL (7-20) Creatinine 0.8 mg/dL (0.6-1.0) Estimated GFR (Cockcroft-Gault) 83.9 Glucose Level 179 mg/dL (70-99) Calcium Level 8.1 mg/dL (8.5-10.1) Magnesium Level 1.8 mg/dL (1.8-2.4) Glucose (Fingerstick) 146 mg/dL (70-99) Medications Current Medications Fentanyl Citrate (Fentanyl 2ml Vial) 25 mcg PRN Q15MIN PRN IV PAIN GREATER THAN 3/10 Last administered on 05/08/17 13:22; Start 05/08/17 at 13:00; Stop at 17:56; Status DC Iohexol (Omnipaque 300 Mg/ml) 75 ml 1X ONCE IV Last administered on 05/08/17 15:14; Start 05/08/17 at 14:15; Stop 05/08/17 at 14:16; Status DC Ondansetron HCl (Zofran) 4 mg PRN Q8HRS PRN IV NAUSEA/VOMITING; Start 05/08/17 at 18:00; Stop 05/09/17 at 07:30; Status DC Fentanyl Citrate (Fentanyl 2ml Vial) 50 mcg PRN Q1HR PRN IV PAIN Last administered on 05/09/17 03:34; Start 05/08/17 at 18:00; Stop 05/09/17 at 07:30 ; Status DC Acetaminophen (Tylenol) 650 mg PRN Q4HRS PRN PO FEVER Last administered on 05/08 19:39; Start 05/08/17 at 18:00; Stop 05/09/17 at 07:30; Status DC Aspirin (Ecotrin) 81 mg DAILY PO Last administered on 05/09/17 09:19; Start at 09:00 Carvedilol (Coreg) 3.125 mg BIDWMEALS PO Last administered on 05/10/17 08:53; Start 05/08/17 at 21:00 Vitamin D (Vitamin D3) 1,000 unit DAILY PO Last administered on 05/09/17 09:00 ; Start 05/09/17 at 09:00 Metformin HCl (Glucophage) 850 mg BIDWMEALS PO ; Start 05/11/17 at 17:00; Stop at 17:00; Status DC Methimazole (Tapazole) 5 mg Q8HRS PO Last administered on 05/10/17 06:34; Start 05/08/17 at 22:00 Simvastatin (Zocor) 20 mg QHS PO Last administered on 05/09/17 21:54; Start at 21:00 Calcium/Vitamin D (Oscal D 500mg/ 200uts) 1 tab [id number] PO Last administered on 05/09/17 09:20; Start 05/09/17 at 08:00 Cyanocobalamin (Vitamin B-12) 1,000 mcg DAILY PO Last administered on 05/10/17 08:53; Start 05/09/17 at 09:00 Multivitamins (Thera M Plus) 1 tab DAILY PO Last administered on 05/10/17 08:52 ; Start 05/09/17 at 09:00 Info (Do NOT chart on this entry -- for MONITORING) 1 each PRN DAILY PRN MC SEE COMMENTS; Start 05/08/17 at 14:15; Stop 05/09/17 at 15:25; Status DC Glimepiride (Amaryl) 4 mg BIDWMEALS PO Last administered on 05/10/17 08:53; Start 05/08/17 at 21:30 Fentanyl Citrate (Fentanyl 2ml Vial) 50 mcg PRN Q1HR PRN IV PAIN Last administered on 05/09/17 09:18; Start 05/09/17 at 07:30 Ondansetron HCl (Zofran) 4 mg PRN Q8HRS PRN IV NAUSEA/VOMITING Last administered on 05/09/17 10:43; Start 05/09/17 at 07:30 Acetaminophen (Tylenol) 650 mg PRN Q4HRS PRN PO FEVER; Start 05/09/17 at 07:30 Insulin Aspart (NovoLOG) TIDAC SQ Last administered on 05/09/17 18:45; Start 05/09/17 at 07:30; Stop 05/10/17 at 08:20; Status DC Tizanidine HCl (Zanaflex) 2 mg PRN Q8HRS PRN PO MUSCLE SPASMS Last administered on 05/09/17 09:20; Start 05/09/17 at 09:00 Diclofenac Sodium (Voltaren) 1 becca QID TP Last administered on 05/10/17 08:53; Start 05/09/17 at 09:00 Potassium Chloride (Klor-Con) 20 meq 1X ONCE PO ; Start 05/09/17 at 09:45; Stop 05/09/17 at 09:46; Status DC Methylprednisolone (Medrol) 8 mg BID PO ; Start 05/09/17 at 10:30; Stop at 17:05; Status DC Methylprednisolone (Medrol) 4 mg BIDPCLD PO ; Start 05/09/17 at 12:30; Stop at 17:05; Status DC Methylprednisolone (Medrol) 4 mg TIDPC PO ; Start 05/10/17 at 08:30; Stop at 08:30; Status DC Methylprednisolone (Medrol) 8 mg QHS PO ; Start 05/10/17 at 21:00; Stop 05/10/17 at 21:00; Status DC Methylprednisolone (Medrol) 4 mg QIDAFTMEAL PO ; Start 05/11/17 at 09:00; Stop at 09:00; Status DC Methylprednisolone (Medrol) 4 mg TID PO ; Start 05/12/17 at 09:00; Stop 05/12/17 at 09:00; Status DC Methylprednisolone (Medrol) 4 mg BID PO ; Start 05/13/17 at 09:00; Stop 05/13/17 at 09:00; Status DC Methylprednisolone (Medrol) 4 mg DAILY PO ; Start 05/14/17 at 09:00; Stop at 09:00; Status DC Pantoprazole Sodium (Protonix) 40 mg DAILYAC PO ; Start 05/09/17 at 11:00 Famotidine (Pepcid) 20 mg BID PO Last administered on 05/09/17t 21:53; Start at 11:00; Stop 05/10/17 at 07:54; Status DC Diazepam (Valium) 5 mg 1X ONCE PO ; Start 05/09/17 at 10:30; Stop 05/09/17 at 10:31; Status DC Lidocaine HCl 20 ml STK-MED ONCE .ROUTE ; Start 05/09/17 at 14:11; Stop at 14:12; Status DC Heparin Sodium/ Sodium Chloride 1,500 ml @ As Directed STK-MED ONCE .ROUTE ; Start 05/09/17 at 14:11; Stop 05/09/17 at 14:12; Status DC Iodixanol (Visipaque 320) 100 ml STK-MED ONCE .ROUTE ; Start 05/09/17 at 14:11; Stop 05/09/17 at 14:12; Status DC Iodixanol (Visipaque 320) 100 ml STK-MED ONCE .ROUTE ; Start 05/09/17 at 14:11; Stop 05/09/17 at 14:12; Status DC Nitroglycerin (Nitroglycerin) 200 mcg STK-MED ONCE .ROUTE ; Start 05/09/17 at 14 :44; Stop 05/09/17 at 14:45; Status DC Verapamil HCl (Verapamil) 5 mg STK-MED ONCE .ROUTE ; Start 05/09/17 at 14:44; Stop 05/09/17 at 14:45; Status DC Midazolam HCl (Versed) 2 mg STK-MED ONCE .ROUTE ; Start 05/09/17 at 14:45; Stop 05/09/17 at 14:46; Status DC Fentanyl Citrate (Fentanyl 2ml Vial) 100 mcg STK-MED ONCE .ROUTE ; Start at 14:45; Stop 05/09/17 at 14:46; Status DC Heparin Sodium (Porcine) (Heparin Sodium) 10,000 unit STK-MED ONCE .ROUTE ; Start 05/09/17 at 14:45; Stop 05/09/17 at 14:46; Status DC Nitroglycerin (Nitroglycerin) 200 mcg 1X ONCE IART Last administered on 15:24; Start 05/09/17 at 15:15; Stop 05/09/17 at 15:24; Status DC Verapamil HCl (Verapamil) 2.5 mg 1X ONCE IART Last administered on 05/09/17 15:24; Start 05/09/17 at 15:15; Stop 05/09/17 at 15:24; Status DC Heparin Sodium (Porcine) (Heparin Sodium) 2,500 unit 1X ONCE IART Last administered on 05/09/17 15:26; Start 05/09/17 at 15:15; Stop 05/09/17 at 15:24 ; Status DC Heparin Sodium/ Sodium Chloride 1,000 unit 1X ONCE IART Last administered on 15:23; Start 05/09/17 at 15:15; Stop 05/09/17 at 15:24; Status DC Midazolam HCl (Versed) 1 mg 1X ONCE IV Last administered on 05/09/17 15:25; Start 05/09/17 at 15:15; Stop 05/09/17 at 15:24; Status DC Fentanyl Citrate (Fentanyl 2ml Vial) 50 mcg 1X ONCE IV Last administered on 15:25; Start 05/09/17 at 15:15; Stop 05/09/17 at 15:24; Status DC Iodixanol (Visipaque 320) 98 ml 1X ONCE IART Last administered on 05/09/17 15 :24; Start 05/09/17 at 15:15; Stop 05/09/17 at 15:24; Status DC Lidocaine HCl 1 ml 1X ONCE IJ Last administered on 05/09/17 15:26; Start at 15:15; Stop 05/09/17 at 15:24; Status DC Info (Do NOT chart on this entry -- for MONITORING) 1 each PRN DAILY PRN MC SEE COMMENTS; Start 05/09/17 at 15:30; Stop 05/11/17 at 15:29 Heparin Sodium/ Dextrose 500 ml @ 0 mls/hr CONT PRN IV SEE I/O RECORD Last administered on 05/09/17 18:45; Start 05/09/17 at 16:00 Heparin Sodium (Porcine) (Heparin Sodium) 2,050 unit PRN Q6HRS PRN IV FOR UFH LEVEL LESS THAN 0.2 Last administered on 05/09/17t 18:38; Start 05/09/17 at 16: 00 Info (Anti-Coagulation Monitoring By Pharmacy) 1 each PRN DAILY PRN MC SEE COMMENTS; Start 05/09/17 at 16:15 Insulin Aspart (NovoLOG) TIDAC SQ ; Start 05/10/17 at 11:30 Active Scripts Active Metformin Hcl 850 Mg Tablet 850 Mg PO BIDWMEALS Hold until 04/09/17 and then start BID Tizanidine Hcl 2 Mg Capsule 2 Mg PO PRN Q8HRS PRN Tramadol Hcl 50 Mg Tablet 90 Mg PO Q6H PRN Reported Glimepiride 4 Mg Tablet 1 Tab PO BID Vitamin D3 (Cholecalciferol (Vitamin D3)) 1,000 Unit Tablet 1 Tab PO DAILY Vitamin B-12 (Cyanocobalamin (Vitamin B-12)) 1,000 Mcg Tablet.er 1,000 Mcg PO DAILY Caltrate 600 + D Tablet (Calcium Carbonate/Vitamin D3) 1 Each Tablet 1 Each PO DAILY Centrum Adults Tablet (Multivitamin/Iron/Folic Acid) 1 Each Tablet 1 Each PO DAILY Methimazole 10 Mg Tablet 5 Mg PO Q8HRS Simvastatin 20 Mg Tablet 1 Tab PO QHS Carvedilol 3.125 Mg Tablet 1 Tab PO BID Aspir 81 (Aspirin) 81 Mg Tablet.dr 81 Mg PO Vitals/I & O Vital Sign - Last 24 Hours 05/09/17 05/09/17 05/09/17 05/09/17 09:18 09:19 10:00 11:00 Temp 97.5 97.5 Pulse 80 77 Resp 20 B/P (MAP) 137/56 137/66 (89) Pulse Ox 96 100 100 O2 Delivery Room Air Room Air Room Air 05/09/17 05/09/17 05/09/17 05/09/17 11:13 15:24 15:25 15:27 Pulse 79 79 Resp 17 16 Pulse Ox 99 99 O2 Delivery Room Air Nasal Cannula Nasal Cannula O2 Flow Rate 2.0 2.0 05/09/17 05/09/17 05/09/17 05/09/17 15:45 15:59 16:00 16:15 Pulse 80 84 80 78 B/P (MAP) 147/75 (99) Pulse Ox 98 O2 Delivery Room Air 05/09/17 05/09/17 05/09/17 05/09/17 16:15 16:30 16:45 17:00 Pulse 76 76 78 Pulse Ox 96 97 96 98 05/09/17 05/09/17 05/09/17 05/09/17 17:15 17:45 18:35 19:15 Temp 97.6 97.6 Pulse 80 80 78 89 Resp 20 B/P (MAP) 136/71 119/61 (80) Pulse Ox 96 97 98 O2 Delivery Room Air 05/09/17 05/09/17 05/10/17 05/10/17 19:30 23:05 03:00 04:33 Temp 97.8 97.8 Pulse 80 74 78 Resp 18 16 B/P (MAP) 143/76 (98) 128/73 (91) Pulse Ox 97 98 O2 Delivery Room Air Room Air Room Air 05/10/17 05/10/17 07:00 08:53 Temp 97.6 97.6 Pulse 81 88 Resp 20 B/P (MAP) 145/76 (99) 145/79 Pulse Ox 98 O2 Delivery Room Air Intake and Output 05/09/17 05/09/17 05/10/17 15:00 23:00 07:00 Intake Total 240 ml 100 ml Balance 240 ml 100 ml KIRAN IVEY MD May 10, 2017 09:14
--- NOTE | 2017-05-10 09:23 | CARD ---
APPROVED REPORT EXAM: Two-dimensional and M-mode echocardiogram with Doppler and color Doppler. Other Information Quality : GoodHR: 81bpm Rhythm : NSR INDICATION Elevated troponins, CAD 2D DIMENSIONS RVDd2.7 (2.9-3.5cm)Left Atrium(2D)3.4 (1.6-4.0cm) IVSd0.9 (0.7-1.1cm)Aortic Root(2D)2.7 (2.0-3.7cm) LVDd6.0 (3.9-5.9cm)LVOT Diameter2.3 (1.8-2.4cm) PWd0.8 (0.7-1.1cm)LVDs5.2 (2.5-4.0cm) FS (%) 13.0 %SV48.4 ml LVEF(%)27.4 (>50%) Aortic Valve AoV Peak Joseph.135.9cm/sAoV VTI28.2cm AO Peak GR.7.4mmHgLVOT Peak Joseph.71.9cm/s AO Mean GR.4mmHgAVA (VMAX)2.24cm2 Mitral Valve MV E Szkbfosm732.2cm/sMV E Peak Gr.10mmHg MV DECEL [id number] A Hwhviavb883.6cm/s MV E Mean Gr.3mmHgE/A Ratio0.7 MV A [id number] Pulmonary Valve PV Peak Pgtfdxcq729.0cm/s LEFT VENTRICLE The Left Ventricle is mildly dilated. There is normal left ventricular wall thickness. Left ventricle systolic function is severely impaired. The Ejection Fraction is 25-30%. There is akinesis in the mi d to apical segments of the anteroseptal, septal, and inferior elliott. All other elliott are severely hy pokinetic. 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 Transmitral Doppler flow lalo agusto is Grade I-abnormal relaxation pattern. RIGHT VENTRICLE The right ventricle is normal size. There is normal right ventricular wall thickness. The right ventr icular systolic function is normal. ATRIA The left atrium size is normal. The right atrium size is normal. The interatrial septum is intact wit h no evidence for an atrial septal defect or patent foramen ovale as noted on 2-D or Doppler imaging. AORTIC VALVE The aortic valve is mildly sclerotic. The aortic valve is trileaflet. Doppler and Color Flow revealed no significant aortic regurgitation. There is no significant aortic valvular stenosis. MITRAL VALVE Mitral annular calcification is mild. The mitral valve leaflets are thickened. There is no evidence o f mitral valve prolapse. There is no mitral valve stenosis. Doppler and Color Flow revealed mild mitr al regurgitation. TRICUSPID VALVE Doppler and Color Flow revealed trace tricuspid regurgitation. Unable to determine pulmonary artery p ressure at exam time. PULMONIC VALVE The pulmonary valve is not well visualized but appears to opens well. Doppler and Color Flow revealed no pulmonic valvular regurgitation. There is no pulmonic valvular stenosis by spectral Doppler. GREAT VESSELS The aortic root is normal in size. The ascending aorta is normal in size. The IVC is normal in size a nd collapses >50% with inspiration. PERICARDIAL EFFUSION There is no evidence of significant pericardial effusion. Critical Notification Critical Value: No <Conclusion> There is akinesis in the mid to apical segments of the anteroseptal, septal, and inferior elliott. All other elliott are severely hypokinetic. 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 Left ventricle systolic function is severely impaired. The Ejection Fraction is 25-30%.
[2017-05-10 11:00] VITALS: BP 157/88
[2017-05-10] MEDS: PANTOPRAZOLE 40 MG TABLET.DR. PO SCH (11:22)
[2017-05-10] MEDS: CALCIUM CARB/VIT D3 500/200 TABLET. PO SCH (11:22)
[2017-05-10] MEDS: ASPIRIN ENTERIC COATED 81 MG TABLET.DR. PO SCH (11:22)
[2017-05-10] MEDS: CHOLECALCIFEROL (VITAMIN D3) 1,000 UNIT TABLET PO SCH (11:22)
--- NOTE | 2017-05-10 11:38 | PDOC ---
[employer] 05/10/17 1138: CARDIO Progress Notes Date and Time Date of Service 05/10/17 Time of Evaluation 1015 Subjective Subjective: No Chest Pain, No shortness of breath, Other (left shoulder/neck pain improved. Nausea/vomiting resolved. ) Vitals Vitals Vital Signs Date Time Temp Pulse Resp B/P (MAP) Pulse Ox O2 Delivery O2 Flow Rate FiO2 05/10/17 11:00 97.6 85 20 157/88 (111) 99 Room Air 97.6 05/09/17 15:27 2.0 Weight Weight [ ] Input and Output Intake and Output Intake and Output 05/10/17 07:00 Intake Total 340 ml Balance 340 ml Intake Oral 340 ml # Voids 2 Laboratory Labs Laboratory Tests Test 05/09/17 11:45 05/09/17 11:54 05/09/17 17:10 05/09/17 20:57 Troponin I Quantitative 2.162 ng/mL (0.000-0.055) Thyroid Stimulating Hormone (TSH) 5.597 uIU/mL (0.358-3.74) Glucose (Fingerstick) 214 mg/dL (70-99) 189 mg/dL (70-99) 275 mg/dL (70-99) Test 05/10/17 01:05 05/10/17 07:40 05/10/17 07:52 White Blood Count 5.0 x10^3/uL (4.0-11.0) Red Blood Count 3.40 x10^6/uL (3.50-5.40) Hemoglobin 10.3 g/dL (12.0-15.5) Hematocrit 31.4 % (36.0-47.0) Mean Corpuscular Volume 92 fL (79-100) Mean Corpuscular Hemoglobin 30 pg (25-35) Mean Corpuscular Hemoglobin Concent 33 g/dL (31-37) Red Cell Distribution Width 14.1 % (11.5-14.5) Platelet Count 226 x10^3/uL (140-400) Neutrophils (%) (Auto) 52 % (31-73) Lymphocytes (%) (Auto) 36 % (24-48) Monocytes (%) (Auto) 11 % (0-9) Eosinophils (%) (Auto) 2 % (0-3) Basophils (%) (Auto) 0 % (0-3) Neutrophils # (Auto) 2.6 x10^3uL (1.8-7.7) Lymphocytes # (Auto) 1.8 x10^3/uL (1.0-4.8) Monocytes # (Auto) 0.5 x10^3/uL (0.0-1.1) Eosinophils # (Auto) 0.1 x10^3/uL (0.0-0.7) Basophils # (Auto) 0.0 x10^3/uL (0.0-0.2) Heparin Anti-Xa Act, Unfractionated 0.25 IU/mL (0.30-0.70) 0.64 IU/mL (0.30-0.70) Sodium Level 141 mmol/L (136-145) Potassium Level 3.5 mmol/L (3.5-5.1) Chloride Level 104 mmol/L (98-107) Carbon Dioxide Level 31 mmol/L (21-32) Anion Gap 6 (6-14) Blood Urea Nitrogen 10 mg/dL (7-20) Creatinine 0.8 mg/dL (0.6-1.0) Estimated GFR (Cockcroft-Gault) 83.9 Glucose Level 179 mg/dL (70-99) Calcium Level 8.1 mg/dL (8.5-10.1) Magnesium Level 1.8 mg/dL (1.8-2.4) Glucose (Fingerstick) 146 mg/dL (70-99) Physical Exam HEENT: Neck Supple W Full Motion Chest: Symmetric LUNGS: Clear to Auscultation Heart: S1S2, RRR, murmurs (2/6 systolic murmur ) Abdomen: Soft N/T Extremities: No Edema, No Calf Tenderness Neurology: alert, oriented, follow commands Assessment Assessment 1. NSTEMI 2. 3V CAD 3. 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 Hypertension 5. Hypokalemia 6. Diabetes 7. Hypothyroidism Recommendations Obtain further records from [facility], ? viability study previously done Continue heparin gtt. Viability study in am CTS to evaluate patient; likely not ideal surgical candidate. Consider for [employer] PCI versus medical management. Continue ASA, BB, and statin. Add EVANS for optimization. Supportive care. Consider for AICD on an outpatient basis. SANGEETHA GUTIÉRREZ MD 05/10/17 1638: CARDIO Progress Notes Plan Plan Patient seen and examined. Agree with above nurse practitioner note Spoke to the patient's primary rehabilitation technician. She had a viability study last year which did not show any viability of the anterior wall. Low utility for bypass and/or PCI. Spoke to the patient's primary physician at this time will continue medical management only. For any aggressive intervention. Discussed with the patient's daughter and she is in agreement. Continue supportive care. HARVINDER CHAMPAGNE APRN May 10, 2017 11:38 SANGEETHA GUTIÉRREZ MD May 10, 2017 16:38
[2017-05-10] MEDS: LISINOPRIL 5 MG TABLET. PO SCH (13:47)
[2017-05-10] MEDS: INSULIN ASPART 300 UNITS/3 ML INSULN.PEN SQ SCH ×2 (13:47→17:19)
[2017-05-10 15:00] VITALS: BP 123/71
--- NOTE | 2017-05-10 15:44 | PDOC ---
PULMONARY PROGRESS NOTES Subjective PT LESS SOA Vitals Vital Signs Date Time Temp Pulse Resp B/P (MAP) Pulse Ox O2 Delivery O2 Flow Rate FiO2 05/10/17 13:47 95 157/88 05/10/17 11:00 97.6 20 99 Room Air 97.6 05/09/17 15:27 2.0 ROS: No Nausea, No Chest Pain, No Abdominal Pain, No Increase Cough Lungs: Clear Cardiovascular: S1, S2 Abdomen: Soft, Non-tender Neuro Exam: Alert Extremities: No Edema Skin: Warm Labs Laboratory Tests Test 05/08/17 20:29 05/09/17 06:05 05/09/17 07:35 05/09/17 07:58 Glucose (Fingerstick) 277 mg/dL (70-99) 147 mg/dL (70-99) Sodium Level 138 mmol/L (136-145) Potassium Level 3.4 mmol/L (3.5-5.1) Chloride Level 101 mmol/L (98-107) Carbon Dioxide Level 29 mmol/L (21-32) Anion Gap 8 (6-14) Blood Urea Nitrogen 10 mg/dL (7-20) Creatinine 0.8 mg/dL (0.6-1.0) Estimated GFR (Cockcroft-Gault) 83.9 BUN/Creatinine Ratio 13 (6-20) Glucose Level 148 mg/dL (70-99) Calcium Level 9.2 mg/dL (8.5-10.1) Total Bilirubin 0.3 mg/dL (0.2-1.0) Aspartate Amino Transf (AST/SGOT) 41 U/L (15-37) Alanine Aminotransferase (ALT/SGPT) 10 U/L (14-59) Alkaline Phosphatase 51 U/L (46-116) Troponin I Quantitative 2.991 ng/mL (0.000-0.055) Total Protein 7.8 g/dL (6.4-8.2) Albumin 3.3 g/dL (3.4-5.0) Albumin/Globulin Ratio 0.7 (1.0-1.7) Triglycerides Level 68 mg/dL (0-150) Cholesterol Level 152 mg/dL (0-200) LDL Cholesterol, Calculated 71 mg/dL (0-100) VLDL Cholesterol, Calculated 14 mg/dL (0-40) Non-HDL Cholesterol Calculated 85 mg/dL (0-129) HDL Cholesterol 67 mg/dL (40-60) Cholesterol/HDL Ratio 2.3 White Blood Count 5.3 x10^3/uL (4.0-11.0) Red Blood Count 3.62 x10^6/uL (3.50-5.40) Hemoglobin 11.0 g/dL (12.0-15.5) Hematocrit 33.4 % (36.0-47.0) Mean Corpuscular Volume 92 fL (79-100) Mean Corpuscular Hemoglobin 30 pg (25-35) Mean Corpuscular Hemoglobin Concent 33 g/dL (31-37) Red Cell Distribution Width 14.1 % (11.5-14.5) Platelet Count 233 x10^3/uL (140-400) Neutrophils (%) (Auto) 62 % (31-73) Lymphocytes (%) (Auto) 25 % (24-48) Monocytes (%) (Auto) 12 % (0-9) Eosinophils (%) (Auto) 1 % (0-3) Basophils (%) (Auto) 0 % (0-3) Neutrophils # (Auto) 3.3 x10^3uL (1.8-7.7) Lymphocytes # (Auto) 1.3 x10^3/uL (1.0-4.8) Monocytes # (Auto) 0.6 x10^3/uL (0.0-1.1) Eosinophils # (Auto) 0.1 x10^3/uL (0.0-0.7) Basophils # (Auto) 0.0 x10^3/uL (0.0-0.2) Test 05/09/17 11:45 05/09/17 11:54 05/09/17 17:10 05/09/17 20:57 Troponin I Quantitative 2.162 ng/mL (0.000-0.055) Thyroid Stimulating Hormone (TSH) 5.597 uIU/mL (0.358-3.74) Glucose (Fingerstick) 214 mg/dL (70-99) 189 mg/dL (70-99) 275 mg/dL (70-99) Test 05/10/17 01:05 05/10/17 07:40 05/10/17 07:52 05/10/17 14:35 White Blood Count 5.0 x10^3/uL (4.0-11.0) Red Blood Count 3.40 x10^6/uL (3.50-5.40) Hemoglobin 10.3 g/dL (12.0-15.5) Hematocrit 31.4 % (36.0-47.0) Mean Corpuscular Volume 92 fL (79-100) Mean Corpuscular Hemoglobin 30 pg (25-35) Mean Corpuscular Hemoglobin Concent 33 g/dL (31-37) Red Cell Distribution Width 14.1 % (11.5-14.5) Platelet Count 226 x10^3/uL (140-400) Neutrophils (%) (Auto) 52 % (31-73) Lymphocytes (%) (Auto) 36 % (24-48) Monocytes (%) (Auto) 11 % (0-9) Eosinophils (%) (Auto) 2 % (0-3) Basophils (%) (Auto) 0 % (0-3) Neutrophils # (Auto) 2.6 x10^3uL (1.8-7.7) Lymphocytes # (Auto) 1.8 x10^3/uL (1.0-4.8) Monocytes # (Auto) 0.5 x10^3/uL (0.0-1.1) Eosinophils # (Auto) 0.1 x10^3/uL (0.0-0.7) Basophils # (Auto) 0.0 x10^3/uL (0.0-0.2) Heparin Anti-Xa Act, Unfractionated 0.25 IU/mL (0.30-0.70) 0.64 IU/mL (0.30-0.70) 0.68 IU/mL (0.30-0.70) Sodium Level 141 mmol/L (136-145) Potassium Level 3.5 mmol/L (3.5-5.1) Chloride Level 104 mmol/L (98-107) Carbon Dioxide Level 31 mmol/L (21-32) Anion Gap 6 (6-14) Blood Urea Nitrogen 10 mg/dL (7-20) Creatinine 0.8 mg/dL (0.6-1.0) Estimated GFR (Cockcroft-Gault) 83.9 Glucose Level 179 mg/dL (70-99) Calcium Level 8.1 mg/dL (8.5-10.1) Magnesium Level 1.8 mg/dL (1.8-2.4) Glucose (Fingerstick) 146 mg/dL (70-99) Laboratory Tests Test 05/09/17 17:10 05/09/17 20:57 05/10/17 01:05 05/10/17 07:40 Glucose (Fingerstick) 189 mg/dL (70-99) 275 mg/dL (70-99) White Blood Count 5.0 x10^3/uL (4.0-11.0) Red Blood Count 3.40 x10^6/uL (3.50-5.40) Hemoglobin 10.3 g/dL (12.0-15.5) Hematocrit 31.4 % (36.0-47.0) Mean Corpuscular Volume 92 fL (79-100) Mean Corpuscular Hemoglobin 30 pg (25-35) Mean Corpuscular Hemoglobin Concent 33 g/dL (31-37) Red Cell Distribution Width 14.1 % (11.5-14.5) Platelet Count 226 x10^3/uL (140-400) Neutrophils (%) (Auto) 52 % (31-73) Lymphocytes (%) (Auto) 36 % (24-48) Monocytes (%) (Auto) 11 % (0-9) Eosinophils (%) (Auto) 2 % (0-3) Basophils (%) (Auto) 0 % (0-3) Neutrophils # (Auto) 2.6 x10^3uL (1.8-7.7) Lymphocytes # (Auto) 1.8 x10^3/uL (1.0-4.8) Monocytes # (Auto) 0.5 x10^3/uL (0.0-1.1) Eosinophils # (Auto) 0.1 x10^3/uL (0.0-0.7) Basophils # (Auto) 0.0 x10^3/uL (0.0-0.2) Heparin Anti-Xa Act, Unfractionated 0.25 IU/mL (0.30-0.70) 0.64 IU/mL (0.30-0.70) Sodium Level 141 mmol/L (136-145) Potassium Level 3.5 mmol/L (3.5-5.1) Chloride Level 104 mmol/L (98-107) Carbon Dioxide Level 31 mmol/L (21-32) Anion Gap 6 (6-14) Blood Urea Nitrogen 10 mg/dL (7-20) Creatinine 0.8 mg/dL (0.6-1.0) Estimated GFR (Cockcroft-Gault) 83.9 Glucose Level 179 mg/dL (70-99) Calcium Level 8.1 mg/dL (8.5-10.1) Magnesium Level 1.8 mg/dL (1.8-2.4) Test 05/10/17 07:52 05/10/17 14:35 Glucose (Fingerstick) 146 mg/dL (70-99) Heparin Anti-Xa Act, Unfractionated 0.68 IU/mL (0.30-0.70) Medications Active Scripts Medications Dose Route/Sig Max Daily Dose Days Date Category Dose Instructions Metformin Hcl 850 Mg Tablet 850 Mg PO BIDWMEALS 05/09/17 Rx Hold until 04/09/17 and then start BID Tizanidine Hcl 2 Mg Capsule 2 Mg PO PRN Q8HRS PRN 05/09/17 Rx Tramadol Hcl 50 Mg Tablet 90 Mg PO Q6H PRN 05/09/17 Rx Glimepiride 4 Mg Tablet 1 Tab PO BID 05/08/17 Reported Vitamin D3 (Cholecalciferol (Vitamin D3)) 1,000 Unit Tablet 1 Tab PO DAILY 05/08/17 Reported Vitamin B-12 (Cyanocobalamin (Vitamin B-12)) 1,000 Mcg Tablet.er 1,000 Mcg PO DAILY 05/08/17 Reported Caltrate 600 + D Tablet (Calcium Carbonate/Vitamin D3) 1 Each Tablet 1 Each PO DAILY 05/08/17 Reported Centrum Adults Tablet (Multivitamin/Iron/Folic Acid) 1 Each Tablet 1 Each PO DAILY 05/08/17 Reported Methimazole 10 Mg Tablet 5 Mg PO Q8HRS 05/08/17 Reported Simvastatin 20 Mg Tablet 1 Tab PO QHS 05/08/17 Reported Carvedilol 3.125 Mg Tablet 1 Tab PO BID 05/08/17 Reported Aspir 81 (Aspirin) 81 Mg Tablet.dr 81 Mg PO 05/08/17 Reported Impression . 1. Bilateral mild pulmonary fibrosis best visualized on CT of the chest. 2. Cardiomyopathy, ejection fraction 20%. 3. Severe [place] 3-vessel coronary artery disease. 4. Severe left ventricular dysfunction. 5. Clinical presentation compatible with obstructive sleep apnea. 6. Diabetes. 7. Obesity. 8. Chronic renal insufficiency. Plan . NOCT DESAT NEGATIVE WILL NEED 6 MIN WALK FOLLOW CARD INPUT NO FURTHER WORK NEEDED FOR MILD FIBROSIS AMINA MADRID MD May 10, 2017 15:44
--- NOTE | 2017-05-10 16:05 | PDOC2 ---
CONSULT Date of Consult Date of Consult DATE: 05/10/17 TIME: 16:03 Reason for Consult Reason for Consult: NSTEMI Referring Physician Referring Physician: Dr Abraham Identification/Chief Complaint Chief Complaint Chest pain Problems: Source Source: Chart review, Patient History of Present Illness Reason for Visit: Ms Espinoza is a 76 yo female who presented with complains of left shoulder and neck pain. Patient reports pain has been ongoing for the last week. Denied any CP, palpitations, dizziness, diaphoresis, or nausea/vomiting. EKG noted to be abnormal upon admission. Troponin was positive. She does have a history of CAD with reported chronic total occlusion identified from cath last year that is being medically managed. Follows closely with attic blower, Dr. Horne at [facility]. She underwent a left heart catheterization here yesterday which redemonstrated a chronically occluded proximal LAD, an occluded proximal RCA, and 70% stenosis at a proximal obtuse marginal vessel. 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 The patient apparently had a viability study at [facility], which showed nonviable myocardium. Past Medical History Cardiovascular: CAD, HTN Pulmonary: No pertinent hx GI: No pertinent hx Heme/Onc: No pertinent hx Hepatobiliary: No pertinent hx Psych: No pertinent hx Musculoskeletal: Osteoarthritis Rheumatologic: Fibromyalgia ENT: No pertinent hx Renal/: No pertinent hx Endocrine: Diabetes, Hypothyroidism Dermatology: No pertinent hx Past Surgical History Past Surgical History: Other (oophorectomy, bladder sx ) Family History Family History: Coronary Artery Disease, Diabetes, Hypertension Social History No ALCOHOL: none Drugs: None Lives: Alone Current Problem List Problem List Problems Medical Problems: (1) Back pain Status: Acute Current Medications Current Medications Current Medications Fentanyl Citrate (Fentanyl 2ml Vial) 25 mcg PRN Q15MIN PRN IV PAIN GREATER THAN 3/10 Last administered on 05/08/17 13:22; Start 05/08/17 at 13:00; Stop at 17:56; Status DC Iohexol (Omnipaque 300 Mg/ml) 75 ml 1X ONCE IV Last administered on 05/08/17 15:14; Start 05/08/17 at 14:15; Stop 05/08/17 at 14:16; Status DC Ondansetron HCl (Zofran) 4 mg PRN Q8HRS PRN IV NAUSEA/VOMITING; Start 05/08/17 at 18:00; Stop 05/09/17 at 07:30; Status DC Fentanyl Citrate (Fentanyl 2ml Vial) 50 mcg PRN Q1HR PRN IV PAIN Last administered on 05/09/17 03:34; Start 05/08/17 at 18:00; Stop 05/09/17 at 07:30 ; Status DC Acetaminophen (Tylenol) 650 mg PRN Q4HRS PRN PO FEVER Last administered on 05/08 19:39; Start 05/08/17 at 18:00; Stop 05/09/17 at 07:30; Status DC Aspirin (Ecotrin) 81 mg DAILY PO Last administered on 05/10/17 11:22; Start at 09:00 Carvedilol (Coreg) 3.125 mg BIDWMEALS PO Last administered on 05/10/17 08:53; Start 05/08/17 at 21:00 Vitamin D (Vitamin D3) 1,000 unit DAILY PO Last administered on 05/10/17 11:22 ; Start 05/09/17 at 09:00 Metformin HCl (Glucophage) 850 mg BIDWMEALS PO ; Start 05/11/17 at 17:00; Stop at 17:00; Status DC Methimazole (Tapazole) 5 mg Q8HRS PO Last administered on 05/10/17 14:39; Start 05/08/17 at 22:00 Simvastatin (Zocor) 20 mg QHS PO Last administered on 05/09/17 21:54; Start at 21:00 Calcium/Vitamin D (Oscal D 500mg/ 200uts) 1 tab DAILYWBKFT PO Last administered on 05/10/17 11:22; Start 05/09/17 at 08:00 Cyanocobalamin (Vitamin B-12) 1,000 mcg DAILY PO Last administered on 05/10/17 08:53; Start 05/09/17 at 09:00 Multivitamins (Thera M Plus) 1 tab DAILY PO Last administered on 05/10/17 08:52 ; Start 05/09/17 at 09:00 Info (Do NOT chart on this entry -- for MONITORING) 1 each PRN DAILY PRN MC SEE COMMENTS; Start 05/08/17 at 14:15; Stop 05/09/17 at 15:25; Status DC Glimepiride (Amaryl) 4 mg BIDWMEALS PO Last administered on 05/10/17 08:53; Start 05/08/17 at 21:30 Fentanyl Citrate (Fentanyl 2ml Vial) 50 mcg PRN Q1HR PRN IV PAIN Last administered on 05/09/17 09:18; Start 05/09/17 at 07:30 Ondansetron HCl (Zofran) 4 mg PRN Q8HRS PRN IV NAUSEA/VOMITING Last administered on 05/09/17 10:43; Start 05/09/17 at 07:30 Acetaminophen (Tylenol) 650 mg PRN Q4HRS PRN PO FEVER; Start 05/09/17 at 07:30 Insulin Aspart (NovoLOG) TIDAC SQ Last administered on 05/09/17 18:45; Start 05/09/17 at 07:30; Stop 05/10/17 at 08:20; Status DC Tizanidine HCl (Zanaflex) 2 mg PRN Q8HRS PRN PO MUSCLE SPASMS Last administered on 05/09/17 09:20; Start 05/09/17 at 09:00 Diclofenac Sodium (Voltaren) 1 becca QID TP Last administered on 05/10/17 13:41; Start 05/09/17 at 09:00 Potassium Chloride (Klor-Con) 20 meq 1X ONCE PO ; Start 05/09/17 at 09:45; Stop 05/09/17 at 09:46; Status DC Methylprednisolone (Medrol) 8 mg BID PO ; Start 05/09/17 at 10:30; Stop at 17:05; Status DC Methylprednisolone (Medrol) 4 mg BIDPCLD PO ; Start 05/09/17 at 12:30; Stop at 17:05; Status DC Methylprednisolone (Medrol) 4 mg TIDPC PO ; Start 05/10/17 at 08:30; Stop at 08:30; Status DC Methylprednisolone (Medrol) 8 mg QHS PO ; Start 05/10/17 at 21:00; Stop 05/10/17 at 21:00; Status DC Methylprednisolone (Medrol) 4 mg QIDAFTMEAL PO ; Start 05/11/17 at 09:00; Stop at 09:00; Status DC Methylprednisolone (Medrol) 4 mg TID PO ; Start 05/12/17 at 09:00; Stop 05/12/17 at 09:00; Status DC Methylprednisolone (Medrol) 4 mg BID PO ; Start 05/13/17 at 09:00; Stop 05/13/17 at 09:00; Status DC Methylprednisolone (Medrol) 4 mg DAILY PO ; Start 05/14/17 at 09:00; Stop at 09:00; Status DC Pantoprazole Sodium (Protonix) 40 mg DAILYAC PO Last administered on 05/10/17t 11:22; Start 05/09/17 at 11:00 Famotidine (Pepcid) 20 mg BID PO Last administered on 05/09/17t 21:53; Start at 11:00; Stop 05/10/17 at 07:54; Status DC Diazepam (Valium) 5 mg 1X ONCE PO ; Start 05/09/17 at 10:30; Stop 05/09/17 at 10:31; Status DC Lidocaine HCl 20 ml STK-MED ONCE .ROUTE ; Start 05/09/17 at 14:11; Stop at 14:12; Status DC Heparin Sodium/ Sodium Chloride 1,500 ml @ As Directed STK-MED ONCE .ROUTE ; Start 05/09/17 at 14:11; Stop 05/09/17 at 14:12; Status DC Iodixanol (Visipaque 320) 100 ml STK-MED ONCE .ROUTE ; Start 05/09/17 at 14:11; Stop 05/09/17 at 14:12; Status DC Iodixanol (Visipaque 320) 100 ml STK-MED ONCE .ROUTE ; Start 05/09/17 at 14:11; Stop 05/09/17 at 14:12; Status DC Nitroglycerin (Nitroglycerin) 200 mcg STK-MED ONCE .ROUTE ; Start 05/09/17 at 14 :44; Stop 05/09/17 at 14:45; Status DC Verapamil HCl (Verapamil) 5 mg STK-MED ONCE .ROUTE ; Start 05/09/17 at 14:44; Stop 05/09/17 at 14:45; Status DC Midazolam HCl (Versed) 2 mg STK-MED ONCE .ROUTE ; Start 05/09/17 at 14:45; Stop 05/09/17 at 14:46; Status DC Fentanyl Citrate (Fentanyl 2ml Vial) 100 mcg STK-MED ONCE .ROUTE ; Start at 14:45; Stop 05/09/17 at 14:46; Status DC Heparin Sodium (Porcine) (Heparin Sodium) 10,000 unit STK-MED ONCE .ROUTE ; Start 05/09/17 at 14:45; Stop 05/09/17 at 14:46; Status DC Nitroglycerin (Nitroglycerin) 200 mcg 1X ONCE IART Last administered on 15:24; Start 05/09/17 at 15:15; Stop 05/09/17 at 15:24; Status DC Verapamil HCl (Verapamil) 2.5 mg 1X ONCE IART Last administered on 05/09/17 15:24; Start 05/09/17 at 15:15; Stop 05/09/17 at 15:24; Status DC Heparin Sodium (Porcine) (Heparin Sodium) 2,500 unit 1X ONCE IART Last administered on 05/09/17 15:26; Start 05/09/17 at 15:15; Stop 05/09/17 at 15:24 ; Status DC Heparin Sodium/ Sodium Chloride 1,000 unit 1X ONCE IART Last administered on 15:23; Start 05/09/17 at 15:15; Stop 05/09/17 at 15:24; Status DC Midazolam HCl (Versed) 1 mg 1X ONCE IV Last administered on 05/09/17 15:25; Start 05/09/17 at 15:15; Stop 05/09/17 at 15:24; Status DC Fentanyl Citrate (Fentanyl 2ml Vial) 50 mcg 1X ONCE IV Last administered on 15:25; Start 05/09/17 at 15:15; Stop 05/09/17 at 15:24; Status DC Iodixanol (Visipaque 320) 98 ml 1X ONCE IART Last administered on 05/09/17 15 :24; Start 05/09/17 at 15:15; Stop 05/09/17 at 15:24; Status DC Lidocaine HCl 1 ml 1X ONCE IJ Last administered on 05/09/17 15:26; Start at 15:15; Stop 05/09/17 at 15:24; Status DC Info (Do NOT chart on this entry -- for MONITORING) 1 each PRN DAILY PRN MC SEE COMMENTS; Start 05/09/17 at 15:30; Stop 05/11/17 at 15:29 Heparin Sodium/ Dextrose 500 ml @ 0 mls/hr CONT PRN IV SEE I/O RECORD Last administered on 05/09/17 18:45; Start 05/09/17 at 16:00; Stop 05/10/17 at 15:25 ; Status DC Heparin Sodium (Porcine) (Heparin Sodium) 2,050 unit PRN Q6HRS PRN IV FOR UFH LEVEL LESS THAN 0.2 Last administered on 05/09/17 18:38; Start 05/09/17 at 16: 00; Stop 05/10/17 at 15:25; Status DC Info (Anti-Coagulation Monitoring By Pharmacy) 1 each PRN DAILY PRN MC SEE COMMENTS; Start 05/09/17 at 16:15; Status Cancel Insulin Aspart (NovoLOG) TIDAC SQ Last administered on 05/10/17 13:47; Start 05/10/17 at 11:30 Lisinopril (Prinivil) 5 mg DAILY PO Last administered on 05/10/17 13:47; Start 05/10/17 at 12:00 Active Scripts Active Metformin Hcl 850 Mg Tablet 850 Mg PO BIDWMEALS Hold until 04/09/17 and then start BID Tizanidine Hcl 2 Mg Capsule 2 Mg PO PRN Q8HRS PRN Tramadol Hcl 50 Mg Tablet 90 Mg PO Q6H PRN Reported Glimepiride 4 Mg Tablet 1 Tab PO BID Vitamin D3 (Cholecalciferol (Vitamin D3)) 1,000 Unit Tablet 1 Tab PO DAILY Vitamin B-12 (Cyanocobalamin (Vitamin B-12)) 1,000 Mcg Tablet.er 1,000 Mcg PO DAILY Caltrate 600 + D Tablet (Calcium Carbonate/Vitamin D3) 1 Each Tablet 1 Each PO DAILY Centrum Adults Tablet (Multivitamin/Iron/Folic Acid) 1 Each Tablet 1 Each PO DAILY Methimazole 10 Mg Tablet 5 Mg PO Q8HRS Simvastatin 20 Mg Tablet 1 Tab PO QHS Carvedilol 3.125 Mg Tablet 1 Tab PO BID Aspir 81 (Aspirin) 81 Mg Tablet.dr 81 Mg PO Allergies Allergies: Coded Allergies: No Known Drug Allergies (Unverified , 05/08/17) ROS General: No: Chills, Night Sweats, Fatigue, Malaise, Appetite PSYCHOLOGICAL ROS: No: Anxiety, Behavioral Disorder, Concentration difficultie , Decreased libido, Depression, Disorientation, Hallucinations, Hostility, Irritablity, Memory difficulties, Mood Swings, Obsessive thoughts, Physical abuse, Sexual abuse, Sleep disturbances, Suicidal ideation Eyes: No Blurry vision, No Decreased vision, No Double vision, No Dry eyes, No Excessive tearing, No Eye Pain, No Itchy Eyes, No Loss of vision, No Photophobia , No Scotomata, No Uses contacts, No Uses glasses HEENT: No: Heacaches, Visual Changes, Hearing change, Nasal congestion, Nasal discharge, Oral lesions, Sinus pain, Sore Throat, Epistaxis, Sneezing, Snoring, Tinnitus, Vertigo, Vocal changes ALLERGY AND IMMUNOLOGY: No: Hives, Insect Bite Sensitivity, Itchy/Watery Eyes, Nasal Congestion, Post Nasal Drip, Seasonal Allergies Hematological and Lymphatic: No: Bleeding Problems, Blood Clots, Blood Transfusions, Brusing, Night Sweats, Pallor, Swollen Lymph Nodes ENDOCRINE: No: Breast Changes, Galactorrhea, Hair Pattern Changes, Hot Flashes , Malaise/lethargy, Mood Swings, Palpitations, Polydipsia/polyuria, Skin Changes , Temperature Intolerance, Unexpected Weight Changes Breast: No New/Changing Breast Lumps, No Nipple changes, No Nipple discharge Respiratory: YES: Shortness of breath, No: Cough, Hemoptysis, Orthopnea, Pleuritic Pain, SOB with excertion, Sputum Changes, Stridor, Tachypnea, Wheezing Cardiovascular: yes Chest Pain, No Palpitations, No Orthopnea, No Paroxysmal Noc. Dyspnea, No Edema, No Lt Headedness Gastrointestinal: No Nausea, No Vomiting, No Abdominal Pain, No Diarrhea, No Constipation, No Melena, No Hematochezia Genitourinary: No Dysuria, No Frequency, No Incontinence, No Hematuria, No Retention, No Discharge, No Urgency, No Pain, No Flank Pain Musculoskeletal: No Gait Disturbance, No Joint Pain, No Joint Stiffness, No Joint Swelling, No Muscle Pain, No Muscular Weakness, No Pain In:, No Swelling In: Neurological: No Behavorial Changes, No Bowel/Bladder ControlChng, No Confusion , No Dizziness, No Gait Disturbance, No Headaches, No Impaired Coord/balance, No Memory Loss, No Numbness/Tingling, No Seizures, No Speech Problems, No Tremors, No Visual Changes, No Weakness Skin: No Dry Skin, No Eczema, No Hair Changes, No Lumps, No Mole Changes, No Mottling, No Nail Changes, No Pruritus, No Rash, No Skin Lesion Changes, No Acne Physical Exam General: Alert, Oriented X3, No acute distress HEENT: Atraumatic, PERRLA Lungs: Clear to auscultation Heart: Regular rate, Normal S1, Normal S2 Abdomen: Soft, No tenderness Skin: No significant lesion Neuro: Normal gait, Normal speech, Strength at 5/5 X4 ext, Normal tone, Sensation intact, Cranial nerves 3-12 NL Psych/Mental Status: Mental status NL MUSCULOSKELETAL: No deformity Vitals VITALS Vital Signs Date Time Temp Pulse Resp B/P (MAP) Pulse Ox O2 Delivery O2 Flow Rate FiO2 05/10/17 15:00 97.6 79 18 123/71 (88) 96 Room Air 97.6 05/09/17 15:27 2.0 Labs Labs Laboratory Tests Test 05/08/17 20:29 05/09/17 06:05 05/09/17 07:35 05/09/17 07:58 Glucose (Fingerstick) 277 mg/dL (70-99) 147 mg/dL (70-99) Sodium Level 138 mmol/L (136-145) Potassium Level 3.4 mmol/L (3.5-5.1) Chloride Level 101 mmol/L (98-107) Carbon Dioxide Level 29 mmol/L (21-32) Anion Gap 8 (6-14) Blood Urea Nitrogen 10 mg/dL (7-20) Creatinine 0.8 mg/dL (0.6-1.0) Estimated GFR (Cockcroft-Gault) 83.9 BUN/Creatinine Ratio 13 (6-20) Glucose Level 148 mg/dL (70-99) Calcium Level 9.2 mg/dL (8.5-10.1) Total Bilirubin 0.3 mg/dL (0.2-1.0) Aspartate Amino Transf (AST/SGOT) 41 U/L (15-37) Alanine Aminotransferase (ALT/SGPT) 10 U/L (14-59) Alkaline Phosphatase 51 U/L (46-116) Troponin I Quantitative 2.991 ng/mL (0.000-0.055) Total Protein 7.8 g/dL (6.4-8.2) Albumin 3.3 g/dL (3.4-5.0) Albumin/Globulin Ratio 0.7 (1.0-1.7) Triglycerides Level 68 mg/dL (0-150) Cholesterol Level 152 mg/dL (0-200) LDL Cholesterol, Calculated 71 mg/dL (0-100) VLDL Cholesterol, Calculated 14 mg/dL (0-40) Non-HDL Cholesterol Calculated 85 mg/dL (0-129) HDL Cholesterol 67 mg/dL (40-60) Cholesterol/HDL Ratio 2.3 White Blood Count 5.3 x10^3/uL (4.0-11.0) Red Blood Count 3.62 x10^6/uL (3.50-5.40) Hemoglobin 11.0 g/dL (12.0-15.5) Hematocrit 33.4 % (36.0-47.0) Mean Corpuscular Volume 92 fL (79-100) Mean Corpuscular Hemoglobin 30 pg (25-35) Mean Corpuscular Hemoglobin Concent 33 g/dL (31-37) Red Cell Distribution Width 14.1 % (11.5-14.5) Platelet Count 233 x10^3/uL (140-400) Neutrophils (%) (Auto) 62 % (31-73) Lymphocytes (%) (Auto) 25 % (24-48) Monocytes (%) (Auto) 12 % (0-9) Eosinophils (%) (Auto) 1 % (0-3) Basophils (%) (Auto) 0 % (0-3) Neutrophils # (Auto) 3.3 x10^3uL (1.8-7.7) Lymphocytes # (Auto) 1.3 x10^3/uL (1.0-4.8) Monocytes # (Auto) 0.6 x10^3/uL (0.0-1.1) Eosinophils # (Auto) 0.1 x10^3/uL (0.0-0.7) Basophils # (Auto) 0.0 x10^3/uL (0.0-0.2) Test 05/09/17 11:45 05/09/17 11:54 05/09/17 17:10 05/09/17 20:57 Troponin I Quantitative 2.162 ng/mL (0.000-0.055) Thyroid Stimulating Hormone (TSH) 5.597 uIU/mL (0.358-3.74) Glucose (Fingerstick) 214 mg/dL (70-99) 189 mg/dL (70-99) 275 mg/dL (70-99) Test 05/10/17 01:05 05/10/17 07:40 05/10/17 07:52 05/10/17 14:35 White Blood Count 5.0 x10^3/uL (4.0-11.0) Red Blood Count 3.40 x10^6/uL (3.50-5.40) Hemoglobin 10.3 g/dL (12.0-15.5) Hematocrit 31.4 % (36.0-47.0) Mean Corpuscular Volume 92 fL (79-100) Mean Corpuscular Hemoglobin 30 pg (25-35) Mean Corpuscular Hemoglobin Concent 33 g/dL (31-37) Red Cell Distribution Width 14.1 % (11.5-14.5) Platelet Count 226 x10^3/uL (140-400) Neutrophils (%) (Auto) 52 % (31-73) Lymphocytes (%) (Auto) 36 % (24-48) Monocytes (%) (Auto) 11 % (0-9) Eosinophils (%) (Auto) 2 % (0-3) Basophils (%) (Auto) 0 % (0-3) Neutrophils # (Auto) 2.6 x10^3uL (1.8-7.7) Lymphocytes # (Auto) 1.8 x10^3/uL (1.0-4.8) Monocytes # (Auto) 0.5 x10^3/uL (0.0-1.1) Eosinophils # (Auto) 0.1 x10^3/uL (0.0-0.7) Basophils # (Auto) 0.0 x10^3/uL (0.0-0.2) Heparin Anti-Xa Act, Unfractionated 0.25 IU/mL (0.30-0.70) 0.64 IU/mL (0.30-0.70) 0.68 IU/mL (0.30-0.70) Sodium Level 141 mmol/L (136-145) Potassium Level 3.5 mmol/L (3.5-5.1) Chloride Level 104 mmol/L (98-107) Carbon Dioxide Level 31 mmol/L (21-32) Anion Gap 6 (6-14) Blood Urea Nitrogen 10 mg/dL (7-20) Creatinine 0.8 mg/dL (0.6-1.0) Estimated GFR (Cockcroft-Gault) 83.9 Glucose Level 179 mg/dL (70-99) Calcium Level 8.1 mg/dL (8.5-10.1) Magnesium Level 1.8 mg/dL (1.8-2.4) Glucose (Fingerstick) 146 mg/dL (70-99) Laboratory Tests Test 05/09/17 17:10 05/09/17 20:57 05/10/17 01:05 05/10/17 07:40 Glucose (Fingerstick) 189 mg/dL (70-99) 275 mg/dL (70-99) White Blood Count 5.0 x10^3/uL (4.0-11.0) Red Blood Count 3.40 x10^6/uL (3.50-5.40) Hemoglobin 10.3 g/dL (12.0-15.5) Hematocrit 31.4 % (36.0-47.0) Mean Corpuscular Volume 92 fL (79-100) Mean Corpuscular Hemoglobin 30 pg (25-35) Mean Corpuscular Hemoglobin Concent 33 g/dL (31-37) Red Cell Distribution Width 14.1 % (11.5-14.5) Platelet Count 226 x10^3/uL (140-400) Neutrophils (%) (Auto) 52 % (31-73) Lymphocytes (%) (Auto) 36 % (24-48) Monocytes (%) (Auto) 11 % (0-9) Eosinophils (%) (Auto) 2 % (0-3) Basophils (%) (Auto) 0 % (0-3) Neutrophils # (Auto) 2.6 x10^3uL (1.8-7.7) Lymphocytes # (Auto) 1.8 x10^3/uL (1.0-4.8) Monocytes # (Auto) 0.5 x10^3/uL (0.0-1.1) Eosinophils # (Auto) 0.1 x10^3/uL (0.0-0.7) Basophils # (Auto) 0.0 x10^3/uL (0.0-0.2) Heparin Anti-Xa Act, Unfractionated 0.25 IU/mL (0.30-0.70) 0.64 IU/mL (0.30-0.70) Sodium Level 141 mmol/L (136-145) Potassium Level 3.5 mmol/L (3.5-5.1) Chloride Level 104 mmol/L (98-107) Carbon Dioxide Level 31 mmol/L (21-32) Anion Gap 6 (6-14) Blood Urea Nitrogen 10 mg/dL (7-20) Creatinine 0.8 mg/dL (0.6-1.0) Estimated GFR (Cockcroft-Gault) 83.9 Glucose Level 179 mg/dL (70-99) Calcium Level 8.1 mg/dL (8.5-10.1) Magnesium Level 1.8 mg/dL (1.8-2.4) Test 05/10/17 07:52 05/10/17 14:35 Glucose (Fingerstick) 146 mg/dL (70-99) Heparin Anti-Xa Act, Unfractionated 0.68 IU/mL (0.30-0.70) Images Images HEMODYNAMICS: LVEDP 13 mm Hg No gradient on LV to aortic pullback. LEFT VENTRICULOGRAM: EF 25% *Severe global hypokinesis. Apical aneurysm CORONARY ANGIOGRAPHY: LM is a moderate caliber vessel with a distal 20% stenosis. LAD is proximally occluded. The mid to distal vessel is small in caliber and fills via left to left collaterals. D1 is a moderate caliber vessel with an ostial 80% stenosis. LCx is a moderate caliber non-dominant vessel mild luminal irregularities. OM1 is a moderate caliber vessel with proximal and mid 70% stenosis. RCA is a large caliber dominant heavily calcified vessel with a mid 100% occlusion. The distal vessel fills via right to right and left to right collaterals. 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 Viability study has shown that her myocardium is nonviable. For this reason the patient would not benefit from CABG. The case has been discussed with her PCP and decision has been reached to pursue medical management only, which I agree with. NADER RUSH MD May 10, 2017 16:05
[2017-05-10 19:50] VITALS: BP 147/85
[2017-05-10] MEDS: tiZANidine 4 MG TABLET. PO PRN (21:21)
[2017-05-10] MEDS: SIMVASTATIN 20 MG TABLET PO SCH (21:21)
[2017-05-10 23:06] VITALS: BP 137/69
[2017-05-11 03:35] VITALS: BP 143/73
[2017-05-11 04:25] LABS: BASO % 0 % (0-3); EOS % 3 % (0-3); HEMATOCRIT 31.9 % (36.0-47.0); HEMOGLOBIN 10.5 g/dL (12.0-15.5); LYMPH # 1.9 x10^3/uL (1.0-4.8); LYMPH % 39 % (24-48); MEAN CORPUSCULAR HEMOGLOBIN 31 pg (25-35); MEAN CORPUSCULAR HGB CONC 33 g/dL (31-37); MEAN CORPUSCULAR VOLUME 93 fL (79-100); MONO % 10 % (0-9); NEUT % 47 % (31-73); PLATELET COUNT 232 x10^3/uL (140-400); RED BLOOD COUNT 3.42 x10^6/uL (3.50-5.40); RED CELL DISTRIBUTION WIDTH 14.1 % (11.5-14.5); WHITE BLOOD COUNT 4.8 x10^3/uL (4.0-11.0)
[2017-05-11 04:49] LABS: CALCIUM 8.3 mg/dL (8.5-10.1); CREATININE 0.9 mg/dL (0.6-1.0); GFR 73.3; POTASSIUM 3.5 mmol/L (3.5-5.1)
[2017-05-11] MEDS: methIMAzole 10 MG TABLET PO SCH ×2 (06:31→14:11)
[2017-05-11 07:30] VITALS: BP 121/71
[2017-05-11] MEDS: INSULIN ASPART 300 UNITS/3 ML INSULN.PEN SQ SCH ×3 (07:30→16:30)
--- NOTE | 2017-05-11 08:21 | PDOC ---
ANGELIQUE LE GUEST SERVICE TEAM LEADER 05/11/17 0821: IM PROGRESS NOTES- Subjective Subjective neck shoulder pain improved Objective Objective alert appropriate Vitals Vital Signs Date Time Temp Pulse Resp B/P (MAP) Pulse Ox O2 Delivery O2 Flow Rate FiO2 05/11/17 03:35 97.1 104 18 143/73 (96) 98 Room Air 97.1 Input & Output Intake and Output 05/11/17 07:00 Intake Total 620 ml Output Total 1050 ml Balance -430 ml Intake Oral 620 ml Output Urine Total 1050 ml # Voids 1 Physical Exam Physical Exam General appearance - alert,well appearing, and in no distress Mental Status - alert, oriented to person, place, and time, affect appropriate to mood Head - normal Chest - baseline fine crackles R>L otherwise clear Heart - S1 and S2 normal Abdomen - soft, nontender, nondistended, no masses or organomegaly Neurological - no acute focal neurological deficit noted. Musculoskeletal - tenderness/pain decreasing with slight increase in ROM L shoulder Extremities - no pedal edema Skin - warm and dry Labs Laboratory Tests Test 05/09/17 11:45 05/09/17 11:54 05/09/17 17:10 05/09/17 20:57 Troponin I Quantitative 2.162 ng/mL (0.000-0.055) Thyroid Stimulating Hormone (TSH) 5.597 uIU/mL (0.358-3.74) Glucose (Fingerstick) 214 mg/dL (70-99) 189 mg/dL (70-99) 275 mg/dL (70-99) Test 05/10/17 01:05 05/10/17 07:40 05/10/17 07:52 05/10/17 11:39 White Blood Count 5.0 x10^3/uL (4.0-11.0) Red Blood Count 3.40 x10^6/uL (3.50-5.40) Hemoglobin 10.3 g/dL (12.0-15.5) Hematocrit 31.4 % (36.0-47.0) Mean Corpuscular Volume 92 fL (79-100) Mean Corpuscular Hemoglobin 30 pg (25-35) Mean Corpuscular Hemoglobin Concent 33 g/dL (31-37) Red Cell Distribution Width 14.1 % (11.5-14.5) Platelet Count 226 x10^3/uL (140-400) Neutrophils (%) (Auto) 52 % (31-73) Lymphocytes (%) (Auto) 36 % (24-48) Monocytes (%) (Auto) 11 % (0-9) Eosinophils (%) (Auto) 2 % (0-3) Basophils (%) (Auto) 0 % (0-3) Neutrophils # (Auto) 2.6 x10^3uL (1.8-7.7) Lymphocytes # (Auto) 1.8 x10^3/uL (1.0-4.8) Monocytes # (Auto) 0.5 x10^3/uL (0.0-1.1) Eosinophils # (Auto) 0.1 x10^3/uL (0.0-0.7) Basophils # (Auto) 0.0 x10^3/uL (0.0-0.2) Heparin Anti-Xa Act, Unfractionated 0.25 IU/mL (0.30-0.70) 0.64 IU/mL (0.30-0.70) Sodium Level 141 mmol/L (136-145) Potassium Level 3.5 mmol/L (3.5-5.1) Chloride Level 104 mmol/L (98-107) Carbon Dioxide Level 31 mmol/L (21-32) Anion Gap 6 (6-14) Blood Urea Nitrogen 10 mg/dL (7-20) Creatinine 0.8 mg/dL (0.6-1.0) Estimated GFR (Cockcroft-Gault) 83.9 Glucose Level 179 mg/dL (70-99) Calcium Level 8.1 mg/dL (8.5-10.1) Magnesium Level 1.8 mg/dL (1.8-2.4) Glucose (Fingerstick) 146 mg/dL (70-99) 219 mg/dL (70-99) Test 05/10/17 14:35 05/10/17 16:53 05/10/17 20:49 05/11/17 03:25 Heparin Anti-Xa Act, Unfractionated 0.68 IU/mL (0.30-0.70) Glucose (Fingerstick) 176 mg/dL (70-99) 208 mg/dL (70-99) White Blood Count 4.8 x10^3/uL (4.0-11.0) Red Blood Count 3.42 x10^6/uL (3.50-5.40) Hemoglobin 10.5 g/dL (12.0-15.5) Hematocrit 31.9 % (36.0-47.0) Mean Corpuscular Volume 93 fL (79-100) Mean Corpuscular Hemoglobin 31 pg (25-35) Mean Corpuscular Hemoglobin Concent 33 g/dL (31-37) Red Cell Distribution Width 14.1 % (11.5-14.5) Platelet Count 232 x10^3/uL (140-400) Neutrophils (%) (Auto) 47 % (31-73) Lymphocytes (%) (Auto) 39 % (24-48) Monocytes (%) (Auto) 10 % (0-9) Eosinophils (%) (Auto) 3 % (0-3) Basophils (%) (Auto) 0 % (0-3) Neutrophils # (Auto) 2.3 x10^3uL (1.8-7.7) Lymphocytes # (Auto) 1.9 x10^3/uL (1.0-4.8) Monocytes # (Auto) 0.5 x10^3/uL (0.0-1.1) Eosinophils # (Auto) 0.2 x10^3/uL (0.0-0.7) Basophils # (Auto) 0.0 x10^3/uL (0.0-0.2) Sodium Level 142 mmol/L (136-145) Potassium Level 3.5 mmol/L (3.5-5.1) Chloride Level 106 mmol/L (98-107) Carbon Dioxide Level 29 mmol/L (21-32) Anion Gap 7 (6-14) Blood Urea Nitrogen 10 mg/dL (7-20) Creatinine 0.9 mg/dL (0.6-1.0) Estimated GFR (Cockcroft-Gault) 73.3 Glucose Level 177 mg/dL (70-99) Calcium Level 8.3 mg/dL (8.5-10.1) Laboratory Tests Test 05/10/17 11:39 05/10/17 14:35 05/10/17 16:53 05/10/17 20:49 Glucose (Fingerstick) 219 mg/dL (70-99) 176 mg/dL (70-99) 208 mg/dL (70-99) Heparin Anti-Xa Act, Unfractionated 0.68 IU/mL (0.30-0.70) Test 05/11/17 03:25 White Blood Count 4.8 x10^3/uL (4.0-11.0) Red Blood Count 3.42 x10^6/uL (3.50-5.40) Hemoglobin 10.5 g/dL (12.0-15.5) Hematocrit 31.9 % (36.0-47.0) Mean Corpuscular Volume 93 fL (79-100) Mean Corpuscular Hemoglobin 31 pg (25-35) Mean Corpuscular Hemoglobin Concent 33 g/dL (31-37) Red Cell Distribution Width 14.1 % (11.5-14.5) Platelet Count 232 x10^3/uL (140-400) Neutrophils (%) (Auto) 47 % (31-73) Lymphocytes (%) (Auto) 39 % (24-48) Monocytes (%) (Auto) 10 % (0-9) Eosinophils (%) (Auto) 3 % (0-3) Basophils (%) (Auto) 0 % (0-3) Neutrophils # (Auto) 2.3 x10^3uL (1.8-7.7) Lymphocytes # (Auto) 1.9 x10^3/uL (1.0-4.8) Monocytes # (Auto) 0.5 x10^3/uL (0.0-1.1) Eosinophils # (Auto) 0.2 x10^3/uL (0.0-0.7) Basophils # (Auto) 0.0 x10^3/uL (0.0-0.2) Sodium Level 142 mmol/L (136-145) Potassium Level 3.5 mmol/L (3.5-5.1) Chloride Level 106 mmol/L (98-107) Carbon Dioxide Level 29 mmol/L (21-32) Anion Gap 7 (6-14) Blood Urea Nitrogen 10 mg/dL (7-20) Creatinine 0.9 mg/dL (0.6-1.0) Estimated GFR (Cockcroft-Gault) 73.3 Glucose Level 177 mg/dL (70-99) Calcium Level 8.3 mg/dL (8.5-10.1) Meds Current Medications Insulin Aspart (NovoLOG) TIDAC SQ Last administered on 05/10/17 17:19; Start 05/10/17 at 11:30 Lisinopril (Prinivil) 5 mg DAILY PO Last administered on 05/10/17t 13:47; Start 05/10/17 at 12:00 Metformin HCl (Glucophage) 850 mg BIDWMEALS PO ; Start 05/11/17 at 17:00; Stop at 17:00; Status DC Methylprednisolone (Medrol) 4 mg BID PO ; Start 05/13/17 at 09:00; Stop 05/13/17 at 09:00; Status DC Methylprednisolone (Medrol) 4 mg DAILY PO ; Start 05/14/17 at 09:00; Stop at 09:00; Status DC Methylprednisolone (Medrol) 4 mg QIDAFTMEAL PO ; Start 05/11/17 at 09:00; Stop at 09:00; Status DC Methylprednisolone (Medrol) 4 mg TID PO ; Start 05/12/17 at 09:00; Stop 05/12/17 at 09:00; Status DC Methylprednisolone (Medrol) 4 mg TIDPC PO ; Start 05/10/17 at 08:30; Stop at 08:30; Status DC Methylprednisolone (Medrol) 8 mg QHS PO ; Start 05/10/17 at 21:00; Stop 05/10/17 at 21:00; Status DC Assessment Assessment 1. NSTEMI with severe 3V CAD not surgical candidate, myocardium non viable 2. L sided neck pain radiating to L scapula atypical chest pain combined with MS pain 3. L shoulder pain/L wrist pain acute on chronic 4. hypertensive urgency 5. IschemicCM with CHF biventricular enlargement, systolic EF 20% and diastolic chronic 2015 ECHO 6. DM II non insulin with neuropathy 7. hypothyroid 8. hyperlipidemia 9. GERD 10. diverticulosis 11. 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 OA cervical spine 14. internal hemorrhoid PLAN: NSTEMI/CAD POA h/o CAD +ASA cardiology consult admit troponin 0.017 Peak 2.991 heparin gtt-stopped 05/10 CV consult-note reviewed, not surgical candidate CC 07/31 severe 3VD EF 25% Admit EKG ST non spec ST changes Myocardium non viable, not surgical candidate Medical management-?PCI neck pain Physiatry consult voltaren gel topical QID tizanidine 2mg q8hr prn MRI pending ? Medrol Dose calvin DC 05/10 -protonix initiated per Dr. Llamas, will stop Pepcid CHF not acute admit wt 181# +BB neg VEANS/RAISSA -ACD started 05/10 BNP 770 ECHO pending EF 20% per ECHO 2014 AICD to be considered out patient HTN urgency improved with pain control continue home meds abnormal CT angio pulmonary consult will need PFTs OP sleep study OP nocturnal RA sat negative 6min walk pending pre discharge CKD II/hyponatremia Admit Na 135 05/11/17 142 BUN 26 10 Cr 1.0 0.9 K 4.5 3.5 Mg 1.8 Neg ARF or HUNG, mild dehydration with mild azotemia monitor DM II SSI/FSBS hold metformin [address] angio-DC metformin due to potential OHS continue glimepiride BS 146-219 FSBS SSI mod intensity -steroid induced hyperglycemia abnormal TSH stress induced, follow up OP in 3 months DVT/GI prophylaxis SCD/ELIZABETH-ambulate Pepcid bid DC 05/10 PPI 05/09/17 anemia Admit Hgb 12.4 05/11 10.5 check stool OB no overt bleeding heparin gtt off DC initiated. Please see DC orders. For further plan of care, please refer to the orders. Plan Plan For more details regarding further plans, please refer to the orders. LOIDA REID MD 05/11/17 0952: IM PROGRESS NOTES- Assessment Assessment D/w yesterday and patient today.Continue medical management.Not a candidate for surgery. ok to discharge. The patient was seen and examined by me. Chart reviewed and plan of care formulated. Discussed with, reviewed and agree with KAIAKO KURA TUARUA's notes, plan of care and orders with modifications as necessary. For more details regarding further plans, please refer to the orders. ANGELIQUE LE APRN May 11, 2017 08:21 LOIDA REID MD May 11, 2017 09:52
[2017-05-11] MEDS ORDERED: NITR0.4T22 SL (08:32)
[2017-05-11] MEDS ORDERED: LISI-338 PO (08:32)
[2017-05-11] MEDS ORDERED: methylPREDNISolone 4 MG TABLET. PO SCH (09:00)
--- NOTE | 2017-05-11 09:18 | PDOC3 ---
ANGELIQUE LE KNAPSACK SPRAYER 05/11/17 0918: IM DISCHARGE SUMMARY Date of Admission Date of Admission Date of Admission: May 08, 2017 at 17:06 Date of Discharge Date of Discharge 05/11/19 Primary Diagnosis Primary Diagnosis 1. NSTEMI with severe 3V CAD not surgical candidate, myocardium non viable 2. L sided neck pain radiating to L scapula atypical chest pain combined with MS pain 3. L shoulder pain/L wrist pain acute on chronic 4. hypertensive urgency 5. IschemicCM with CHF biventricular enlargement, systolic EF 20% and diastolic chronic 2014 ECHO 6. DM II non insulin with neuropathy 7. hypothyroid 8. hyperlipidemia 9. GERD 10. diverticulosis 11. 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 OA cervical spine 14. internal hemorrhoid Problems: Consults Consults Tae Llamas MD, Dr., Dr., Dr. Procedures Procedures APPROVED REPORT EXAM: Two-dimensional and M-mode echocardiogram with Doppler and color Doppler. Other Information Quality : Good HR: 81bpm Rhythm : NSR INDICATION Elevated troponins, CAD 2D DIMENSIONS RVDd 2.7 (2.9-3.5cm) Left Atrium(2D) 3.4 (1.6-4.0cm) IVSd 0.9 (0.7-1.1cm) Aortic Root(2D) 2.7 (2.0-3.7cm) LVDd 6.0 (3.9-5.9cm) LVOT Diameter 2.3 (1.8-2.4cm) PWd 0.8 (0.7-1.1cm) LVDs 5.2 (2.5-4.0cm) FS (%) 13.0 % SV 48.4 ml LVEF(%) 27.4 (>50%) Aortic Valve AoV Peak Joseph. 135.9cm/s AoV VTI 28.2cm AO Peak GR. 7.4mmHg LVOT Peak Joseph. 71.9cm/s AO Mean GR. 4mmHg JEREMIAS (VMAX) 2.24cm2 Mitral Valve MV E Velocity 105.2cm/s MV E Peak Gr. 10mmHg MV DECEL TIME 167ms MV A Velocity 144.6cm/s MV E Mean Gr. 3mmHg E/A Ratio 0.7 MV A Duration 83ms Pulmonary Valve PV Peak Velocity 112.0cm/s LEFT VENTRICLE The Left Ventricle is mildly dilated. There is normal left ventricular wall thickness. Left ventricle systolic function is severely impaired. The Ejection Fraction is 25-30%. There is akinesis in the mid to apical segments of the anteroseptal, septal, and inferior elliott. All other elliott are severely hypokinetic. 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 Transmitral Doppler flow pattern is Grade I-abnormal relaxation pattern. RIGHT VENTRICLE The right ventricle is normal size. There is normal right ventricular wall thickness. The right ventricular systolic function is normal. ATRIA The left atrium size is normal. The right atrium size is normal. The interatrial septum is intact with no evidence for an atrial septal defect or patent foramen ovale as noted on 2-D or Doppler imaging. AORTIC VALVE The aortic valve is mildly sclerotic. The aortic valve is trileaflet. Doppler and Color Flow revealed no significant aortic regurgitation. There is no significant aortic valvular stenosis. MITRAL VALVE Mitral annular calcification is mild. The mitral valve leaflets are thickened. There is no evidence of mitral valve prolapse. There is no mitral valve stenosis. Doppler and Color Flow revealed mild mitral regurgitation. TRICUSPID VALVE Doppler and Color Flow revealed trace tricuspid regurgitation. Unable to determine pulmonary artery pressure at exam time. PULMONIC VALVE The pulmonary valve is not well visualized but appears to opens well. Doppler and Color Flow revealed no pulmonic valvular regurgitation. There is no pulmonic valvular stenosis by spectral Doppler. GREAT VESSELS The aortic root is normal in size. The ascending aorta is normal in size. The IVC is normal in size and collapses >50% with inspiration. PERICARDIAL EFFUSION There is no evidence of significant pericardial effusion. Critical Notification Critical Value: No <Conclusion> There is akinesis in the mid to apical segments of the anteroseptal, septal, and inferior elliott. All other elliott are severely hypokinetic. 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 Left ventricle systolic function is severely impaired. The Ejection Fraction is 25-30%. DICTATED and SIGNED BY: SANGEETHA GUTIÉRREZ MD DATE: 05/10/17 0923 APPROVED REPORT Procedure(s) performed: LEFT HEART CATHERIZATION, Coronary angiography, Left ventriculography. SEDATION TIME: 41 MINUTES HISTORY The patient is a 76 year-old female with a history of : previous [place], previous CHF, coronary artery disease, hypertension, dyslipidemia. INDICATION The indication(s) include : non-STEMI (>6 hrs to = 12 hrs). CASE TECHNIQUE During this case, Fluoroscopy and low osmolar contrast were used for imaging. PROCEDURE NARRATIVE The patient was brought electively to the cardiac catheterization lab. A timeout was performed confirming the patient's name, date of , procedure, and site of procedure. All necessary personnel were wearing the appropriate protective equipment and radiation monitor devices. After explaining the risks and benefits of the procedure and alternatives, informed consent was obtained. ( See nursing notes for medications administered). The right wrist was sterilely prepped and draped in the usual fashion. The right wrist was infiltrated with 1 mL of 2% lidocaine for subcutaneous anesthesia. A 6 [place] Terumo glide sheath was inserted into the right radial artery without difficulty. Right and left coronary angiography was performed using a 6Fr TIG 4.0 catheter. Left ventricular end diastolic pressure was obtained with a pigtail catheter and pullback was performed after left ventriculography. All catheter exchanges and advancements were performed over a guidewire. At case completion the right radial sheath was removed and a Terumo radial band was applied with 13 ml of air. The patient tolerated the procedure well and there were no immediate complications. HEMODYNAMICS: LVEDP 13 mm Hg No gradient on LV to aortic pullback. LEFT VENTRICULOGRAM: EF 25% *Severe global hypokinesis. Apical aneurysm CORONARY ANGIOGRAPHY: LM is a moderate caliber vessel with a distal 20% stenosis. LAD is proximally occluded. The mid to distal vessel is small in caliber and fills via left to left collaterals. D1 is a moderate caliber vessel with an ostial 80% stenosis. LCx is a moderate caliber non-dominant vessel mild luminal irregularities. OM1 is a moderate caliber vessel with proximal and mid 70% stenosis. RCA is a large caliber dominant heavily calcified vessel with a mid 100% occlusion. The distal vessel fills via right to right and left to right collaterals. Conclusion 1. Severe [place] 3V CAD 2. Severe LV dysfunction. EF 25% Recommendations Viability assessment then consideration for CABG versus POWDER SHOVELER PCI or medical management based on results Await [facility]. Heparin gtt per ACS protocol. DICTATED and SIGNED BY: SANGEETHA GUTIÉRREZ MD DATE: 05/09/17 4262 Labs Labs Laboratory Tests Test 05/08/17 12:32 05/08/17 20:29 05/09/17 06:05 05/09/17 07:35 White Blood Count 9.3 x10^3/uL (4.0-11.0) 5.3 x10^3/uL (4.0-11.0) Red Blood Count 4.07 x10^6/uL (3.50-5.40) 3.62 x10^6/uL (3.50-5.40) Hemoglobin 12.4 g/dL (12.0-15.5) 11.0 g/dL (12.0-15.5) Hematocrit 37.5 % (36.0-47.0) 33.4 % (36.0-47.0) Mean Corpuscular Volume 92 fL (79-100) 92 fL (79-100) Mean Corpuscular Hemoglobin 30 pg (25-35) 30 pg (25-35) Mean Corpuscular Hemoglobin Concent 33 g/dL (31-37) 33 g/dL (31-37) Red Cell Distribution Width 14.1 % (11.5-14.5) 14.1 % (11.5-14.5) Platelet Count 269 x10^3/uL (140-400) 233 x10^3/uL (140-400) Neutrophils (%) (Auto) 78 % (31-73) 62 % (31-73) Lymphocytes (%) (Auto) 14 % (24-48) 25 % (24-48) Monocytes (%) (Auto) 7 % (0-9) 12 % (0-9) Eosinophils (%) (Auto) 0 % (0-3) 1 % (0-3) Basophils (%) (Auto) 0 % (0-3) 0 % (0-3) Neutrophils # (Auto) 7.2 x10^3uL (1.8-7.7) 3.3 x10^3uL (1.8-7.7) Lymphocytes # (Auto) 1.3 x10^3/uL (1.0-4.8) 1.3 x10^3/uL (1.0-4.8) Monocytes # (Auto) 0.6 x10^3/uL (0.0-1.1) 0.6 x10^3/uL (0.0-1.1) Eosinophils # (Auto) 0.0 x10^3/uL (0.0-0.7) 0.1 x10^3/uL (0.0-0.7) Basophils # (Auto) 0.0 x10^3/uL (0.0-0.2) 0.0 x10^3/uL (0.0-0.2) D-Dimer (Kimmie) 0.54 ug/mlFEU (0.00-0.50) Sodium Level 135 mmol/L (136-145) 138 mmol/L (136-145) Potassium Level 4.5 mmol/L (3.5-5.1) 3.4 mmol/L (3.5-5.1) Chloride Level 98 mmol/L (98-107) 101 mmol/L (98-107) Carbon Dioxide Level 26 mmol/L (21-32) 29 mmol/L (21-32) Anion Gap 11 (6-14) 8 (6-14) Blood Urea Nitrogen 14 mg/dL (7-20) 10 mg/dL (7-20) Creatinine 1.0 mg/dL (0.6-1.0) 0.8 mg/dL (0.6-1.0) Estimated GFR (Cockcroft-Gault) 64.9 83.9 Glucose Level 207 mg/dL (70-99) 148 mg/dL (70-99) Calcium Level 9.7 mg/dL (8.5-10.1) 9.2 mg/dL (8.5-10.1) Total Bilirubin 0.2 mg/dL (0.2-1.0) 0.3 mg/dL (0.2-1.0) Direct Bilirubin 0.1 mg/dL (0.0-0.2) Aspartate Amino Transf (AST/SGOT) 22 U/L (15-37) 41 U/L (15-37) Alanine Aminotransferase (ALT/SGPT) 10 U/L (14-59) 10 U/L (14-59) Alkaline Phosphatase 60 U/L (46-116) 51 U/L (46-116) Troponin I Quantitative < 0.017 ng/mL (0.000-0.055) 2.991 ng/mL (0.000-0.055) HK-Kwo-B-Type Natriuretic Peptide 770 pg/mL (0-449) Total Protein 8.2 g/dL (6.4-8.2) 7.8 g/dL (6.4-8.2) Albumin 3.9 g/dL (3.4-5.0) 3.3 g/dL (3.4-5.0) Glucose (Fingerstick) 277 mg/dL (70-99) BUN/Creatinine Ratio 13 (6-20) Albumin/Globulin Ratio 0.7 (1.0-1.7) Triglycerides Level 68 mg/dL (0-150) Cholesterol Level 152 mg/dL (0-200) LDL Cholesterol, Calculated 71 mg/dL (0-100) VLDL Cholesterol, Calculated 14 mg/dL (0-40) Non-HDL Cholesterol Calculated 85 mg/dL (0-129) HDL Cholesterol 67 mg/dL (40-60) Cholesterol/HDL Ratio 2.3 Test 05/09/17 07:58 05/09/17 11:45 05/09/17 11:54 05/09/17 17:10 Glucose (Fingerstick) 147 mg/dL (70-99) 214 mg/dL (70-99) 189 mg/dL (70-99) Troponin I Quantitative 2.162 ng/mL (0.000-0.055) Thyroid Stimulating Hormone (TSH) 5.597 uIU/mL (0.358-3.74) Test 05/09/17 20:57 05/10/17 01:05 05/10/17 07:40 05/10/17 07:52 Glucose (Fingerstick) 275 mg/dL (70-99) 146 mg/dL (70-99) White Blood Count 5.0 x10^3/uL (4.0-11.0) Red Blood Count 3.40 x10^6/uL (3.50-5.40) Hemoglobin 10.3 g/dL (12.0-15.5) Hematocrit 31.4 % (36.0-47.0) Mean Corpuscular Volume 92 fL (79-100) Mean Corpuscular Hemoglobin 30 pg (25-35) Mean Corpuscular Hemoglobin Concent 33 g/dL (31-37) Red Cell Distribution Width 14.1 % (11.5-14.5) Platelet Count 226 x10^3/uL (140-400) Neutrophils (%) (Auto) 52 % (31-73) Lymphocytes (%) (Auto) 36 % (24-48) Monocytes (%) (Auto) 11 % (0-9) Eosinophils (%) (Auto) 2 % (0-3) Basophils (%) (Auto) 0 % (0-3) Neutrophils # (Auto) 2.6 x10^3uL (1.8-7.7) Lymphocytes # (Auto) 1.8 x10^3/uL (1.0-4.8) Monocytes # (Auto) 0.5 x10^3/uL (0.0-1.1) Eosinophils # (Auto) 0.1 x10^3/uL (0.0-0.7) Basophils # (Auto) 0.0 x10^3/uL (0.0-0.2) Heparin Anti-Xa Act, Unfractionated 0.25 IU/mL (0.30-0.70) 0.64 IU/mL (0.30-0.70) Sodium Level 141 mmol/L (136-145) Potassium Level 3.5 mmol/L (3.5-5.1) Chloride Level 104 mmol/L (98-107) Carbon Dioxide Level 31 mmol/L (21-32) Anion Gap 6 (6-14) Blood Urea Nitrogen 10 mg/dL (7-20) Creatinine 0.8 mg/dL (0.6-1.0) Estimated GFR (Cockcroft-Gault) 83.9 Glucose Level 179 mg/dL (70-99) Calcium Level 8.1 mg/dL (8.5-10.1) Magnesium Level 1.8 mg/dL (1.8-2.4) Test 05/10/17 11:39 05/10/17 14:35 05/10/17 16:53 05/10/17 20:49 Glucose (Fingerstick) 219 mg/dL (70-99) 176 mg/dL (70-99) 208 mg/dL (70-99) Heparin Anti-Xa Act, Unfractionated 0.68 IU/mL (0.30-0.70) Test 05/11/17 03:25 White Blood Count 4.8 x10^3/uL (4.0-11.0) Red Blood Count 3.42 x10^6/uL (3.50-5.40) Hemoglobin 10.5 g/dL (12.0-15.5) Hematocrit 31.9 % (36.0-47.0) Mean Corpuscular Volume 93 fL (79-100) Mean Corpuscular Hemoglobin 31 pg (25-35) Mean Corpuscular Hemoglobin Concent 33 g/dL (31-37) Red Cell Distribution Width 14.1 % (11.5-14.5) Platelet Count 232 x10^3/uL (140-400) Neutrophils (%) (Auto) 47 % (31-73) Lymphocytes (%) (Auto) 39 % (24-48) Monocytes (%) (Auto) 10 % (0-9) Eosinophils (%) (Auto) 3 % (0-3) Basophils (%) (Auto) 0 % (0-3) Neutrophils # (Auto) 2.3 x10^3uL (1.8-7.7) Lymphocytes # (Auto) 1.9 x10^3/uL (1.0-4.8) Monocytes # (Auto) 0.5 x10^3/uL (0.0-1.1) Eosinophils # (Auto) 0.2 x10^3/uL (0.0-0.7) Basophils # (Auto) 0.0 x10^3/uL (0.0-0.2) Sodium Level 142 mmol/L (136-145) Potassium Level 3.5 mmol/L (3.5-5.1) Chloride Level 106 mmol/L (98-107) Carbon Dioxide Level 29 mmol/L (21-32) Anion Gap 7 (6-14) Blood Urea Nitrogen 10 mg/dL (7-20) Creatinine 0.9 mg/dL (0.6-1.0) Estimated GFR (Cockcroft-Gault) 73.3 Glucose Level 177 mg/dL (70-99) Calcium Level 8.3 mg/dL (8.5-10.1) Magnesium Level 2.0 mg/dL (1.8-2.4) Brief hospital course Brief hospital course This 76 year old female who presented with atypical chest pain was admitted. The following is summary of her treatment: PLAN: NSTEMI/CAD POA h/o CAD +ASA cardiology consult admit troponin 0.017 Peak 2.991 heparin gtt-stopped 05/10 CV consult-note reviewed, not surgical candidate CC 05/09 severe 3VD EF 25% Admit EKG ST non spec ST changes Myocardium non viable, not surgical candidate Medical management-?PCI neck pain Physiatry consult voltaren gel topical QID tizanidine 2mg q8hr prn MRI pending ? Medrol Dose calvin DC 05/10 -protonix initiated per Dr. Llamas, will stop Pepcid CHF not acute admit wt 181# +BB neg EVANS/RAISSA -ACD started 05/10 BNP 770 ECHO pending EF 20% per ECHO 2014 AICD to be considered out patient HTN urgency improved with pain control continue home meds abnormal CT angio pulmonary consult will need PFTs OP sleep study OP nocturnal RA sat negative 6min walk pending pre discharge CKD II/hyponatremia Admit Na 135 05/11/17 142 BUN 26 10 Cr 1.0 0.9 K 4.5 3.5 Mg 1.8 Neg ARF or HUNG, mild dehydration with mild azotemia monitor DM II SSI/FSBS hold metformin [address] angio-DC metformin due to potential OHS continue glimepiride BS 146-219 FSBS SSI mod intensity -steroid induced hyperglycemia abnormal TSH stress induced, follow up OP in 3 months DVT/GI prophylaxis SCD/ELIZABETH-ambulate Pepcid bid DC 05/10 PPI 05/09/17 anemia Admit Hgb 12.4 05/11 10.5 check stool OB no overt bleeding heparin gtt off For more details regarding the past history, family history, social history, surgical history and other details, please refer to History and Physical. She is being discharged home. Please see the DC orders. Medications Medications reviewed and reconciled for discharge. Allergy Allergies Coded Allergies Type Severity Reaction Last Updated Verified No Known Drug Allergies 05/08/[address] Patterson in 3-5 days DISPOSITION: Home Comments Discharge Management - 35 minutes. For other details please refer to discharge instructions LOIDA PATTERSON MD 05/11/17 0956: IM DISCHARGE SUMMARY Brief hospital course Comments The patient was seen and examined by me. Chart reviewed and plan of care formulated. Discussed with, reviewed and agree with MBA INTERN's notes, plan of care and orders with modifications as necessary. Discharge Management - 35 minutes. ANGELIQUE LE APRN May 11, 2017 09:18 LOIDA PATTERSON MD May 11, 2017 09:56
--- NOTE | 2017-05-11 10:11 | PDOC ---
PULMONARY PROGRESS NOTES Subjective PT LESS SOA Vitals Vital Signs Date Time Temp Pulse Resp B/P (MAP) Pulse Ox O2 Delivery O2 Flow Rate FiO2 05/11/17 07:30 97.7 79 18 121/71 (88) 98 Room Air 97.7 ROS: No Nausea, No Chest Pain, No Abdominal Pain, No Increase Cough Lungs: Clear Cardiovascular: S1, S2 Abdomen: Soft, Non-tender Neuro Exam: Alert Extremities: No Edema Skin: Warm Labs Laboratory Tests Test 05/09/17 11:45 05/09/17 11:54 05/09/17 17:10 05/09/17 20:57 Troponin I Quantitative 2.162 ng/mL (0.000-0.055) Thyroid Stimulating Hormone (TSH) 5.597 uIU/mL (0.358-3.74) Glucose (Fingerstick) 214 mg/dL (70-99) 189 mg/dL (70-99) 275 mg/dL (70-99) Test 05/10/17 01:05 05/10/17 07:40 05/10/17 07:52 05/10/17 11:39 White Blood Count 5.0 x10^3/uL (4.0-11.0) Red Blood Count 3.40 x10^6/uL (3.50-5.40) Hemoglobin 10.3 g/dL (12.0-15.5) Hematocrit 31.4 % (36.0-47.0) Mean Corpuscular Volume 92 fL (79-100) Mean Corpuscular Hemoglobin 30 pg (25-35) Mean Corpuscular Hemoglobin Concent 33 g/dL (31-37) Red Cell Distribution Width 14.1 % (11.5-14.5) Platelet Count 226 x10^3/uL (140-400) Neutrophils (%) (Auto) 52 % (31-73) Lymphocytes (%) (Auto) 36 % (24-48) Monocytes (%) (Auto) 11 % (0-9) Eosinophils (%) (Auto) 2 % (0-3) Basophils (%) (Auto) 0 % (0-3) Neutrophils # (Auto) 2.6 x10^3uL (1.8-7.7) Lymphocytes # (Auto) 1.8 x10^3/uL (1.0-4.8) Monocytes # (Auto) 0.5 x10^3/uL (0.0-1.1) Eosinophils # (Auto) 0.1 x10^3/uL (0.0-0.7) Basophils # (Auto) 0.0 x10^3/uL (0.0-0.2) Heparin Anti-Xa Act, Unfractionated 0.25 IU/mL (0.30-0.70) 0.64 IU/mL (0.30-0.70) Sodium Level 141 mmol/L (136-145) Potassium Level 3.5 mmol/L (3.5-5.1) Chloride Level 104 mmol/L (98-107) Carbon Dioxide Level 31 mmol/L (21-32) Anion Gap 6 (6-14) Blood Urea Nitrogen 10 mg/dL (7-20) Creatinine 0.8 mg/dL (0.6-1.0) Estimated GFR (Cockcroft-Gault) 83.9 Glucose Level 179 mg/dL (70-99) Calcium Level 8.1 mg/dL (8.5-10.1) Magnesium Level 1.8 mg/dL (1.8-2.4) Glucose (Fingerstick) 146 mg/dL (70-99) 219 mg/dL (70-99) Test 05/10/17 14:35 05/10/17 16:53 05/10/17 20:49 05/11/17 03:25 Heparin Anti-Xa Act, Unfractionated 0.68 IU/mL (0.30-0.70) Glucose (Fingerstick) 176 mg/dL (70-99) 208 mg/dL (70-99) White Blood Count 4.8 x10^3/uL (4.0-11.0) Red Blood Count 3.42 x10^6/uL (3.50-5.40) Hemoglobin 10.5 g/dL (12.0-15.5) Hematocrit 31.9 % (36.0-47.0) Mean Corpuscular Volume 93 fL (79-100) Mean Corpuscular Hemoglobin 31 pg (25-35) Mean Corpuscular Hemoglobin Concent 33 g/dL (31-37) Red Cell Distribution Width 14.1 % (11.5-14.5) Platelet Count 232 x10^3/uL (140-400) Neutrophils (%) (Auto) 47 % (31-73) Lymphocytes (%) (Auto) 39 % (24-48) Monocytes (%) (Auto) 10 % (0-9) Eosinophils (%) (Auto) 3 % (0-3) Basophils (%) (Auto) 0 % (0-3) Neutrophils # (Auto) 2.3 x10^3uL (1.8-7.7) Lymphocytes # (Auto) 1.9 x10^3/uL (1.0-4.8) Monocytes # (Auto) 0.5 x10^3/uL (0.0-1.1) Eosinophils # (Auto) 0.2 x10^3/uL (0.0-0.7) Basophils # (Auto) 0.0 x10^3/uL (0.0-0.2) Sodium Level 142 mmol/L (136-145) Potassium Level 3.5 mmol/L (3.5-5.1) Chloride Level 106 mmol/L (98-107) Carbon Dioxide Level 29 mmol/L (21-32) Anion Gap 7 (6-14) Blood Urea Nitrogen 10 mg/dL (7-20) Creatinine 0.9 mg/dL (0.6-1.0) Estimated GFR (Cockcroft-Gault) 73.3 Glucose Level 177 mg/dL (70-99) Calcium Level 8.3 mg/dL (8.5-10.1) Magnesium Level 2.0 mg/dL (1.8-2.4) Laboratory Tests Test 05/10/17 11:39 05/10/17 14:35 05/10/17 16:53 05/10/17 20:49 Glucose (Fingerstick) 219 mg/dL (70-99) 176 mg/dL (70-99) 208 mg/dL (70-99) Heparin Anti-Xa Act, Unfractionated 0.68 IU/mL (0.30-0.70) Test 05/11/17 03:25 White Blood Count 4.8 x10^3/uL (4.0-11.0) Red Blood Count 3.42 x10^6/uL (3.50-5.40) Hemoglobin 10.5 g/dL (12.0-15.5) Hematocrit 31.9 % (36.0-47.0) Mean Corpuscular Volume 93 fL (79-100) Mean Corpuscular Hemoglobin 31 pg (25-35) Mean Corpuscular Hemoglobin Concent 33 g/dL (31-37) Red Cell Distribution Width 14.1 % (11.5-14.5) Platelet Count 232 x10^3/uL (140-400) Neutrophils (%) (Auto) 47 % (31-73) Lymphocytes (%) (Auto) 39 % (24-48) Monocytes (%) (Auto) 10 % (0-9) Eosinophils (%) (Auto) 3 % (0-3) Basophils (%) (Auto) 0 % (0-3) Neutrophils # (Auto) 2.3 x10^3uL (1.8-7.7) Lymphocytes # (Auto) 1.9 x10^3/uL (1.0-4.8) Monocytes # (Auto) 0.5 x10^3/uL (0.0-1.1) Eosinophils # (Auto) 0.2 x10^3/uL (0.0-0.7) Basophils # (Auto) 0.0 x10^3/uL (0.0-0.2) Sodium Level 142 mmol/L (136-145) Potassium Level 3.5 mmol/L (3.5-5.1) Chloride Level 106 mmol/L (98-107) Carbon Dioxide Level 29 mmol/L (21-32) Anion Gap 7 (6-14) Blood Urea Nitrogen 10 mg/dL (7-20) Creatinine 0.9 mg/dL (0.6-1.0) Estimated GFR (Cockcroft-Gault) 73.3 Glucose Level 177 mg/dL (70-99) Calcium Level 8.3 mg/dL (8.5-10.1) Magnesium Level 2.0 mg/dL (1.8-2.4) Medications Active Scripts Medications Dose Route/Sig Max Daily Dose Days Date Category Dose Instructions Metformin Hcl 850 Mg Tablet 850 Mg PO BIDWMEALS 05/09/17 Rx Hold until 04/09/17 and then start BID Tizanidine Hcl 2 Mg Capsule 2 Mg PO PRN Q8HRS PRN 05/09/17 Rx Tramadol Hcl 50 Mg Tablet 90 Mg PO Q6H PRN 05/09/17 Rx Glimepiride 4 Mg Tablet 1 Tab PO BID 05/08/17 Reported Vitamin D3 (Cholecalciferol (Vitamin D3)) 1,000 Unit Tablet 1 Tab PO DAILY 05/08/17 Reported Vitamin B-12 (Cyanocobalamin (Vitamin B-12)) 1,000 Mcg Tablet.er 1,000 Mcg PO DAILY 05/08/17 Reported Caltrate 600 + D Tablet (Calcium Carbonate/Vitamin D3) 1 Each Tablet 1 Each PO DAILY 05/08/17 Reported Centrum Adults Tablet (Multivitamin/Iron/Folic Acid) 1 Each Tablet 1 Each PO DAILY 05/08/17 Reported Methimazole 10 Mg Tablet 5 Mg PO Q8HRS 05/08/17 Reported Simvastatin 20 Mg Tablet 1 Tab PO QHS 05/08/17 Reported Carvedilol 3.125 Mg Tablet 1 Tab PO BID 05/08/17 Reported Aspir 81 (Aspirin) 81 Mg Tablet.dr 81 Mg PO 05/08/17 Reported Impression . 1. Bilateral mild pulmonary fibrosis best visualized on CT of the chest. 2. Cardiomyopathy, ejection fraction 20%. 3. Severe samish 3-vessel coronary artery disease. 4. Severe left ventricular dysfunction. 5. Clinical presentation compatible with obstructive sleep apnea. 6. Diabetes. 7. Obesity. 8. Chronic renal insufficiency. Plan . no need for 02 d/c ok FOLLOW CARD INPUT NO FURTHER WORK NEEDED FOR MILD FIBROSIS AMINA MADRID MD May 11, 2017 10:11
--- NOTE | 2017-05-11 10:22 | PDOC ---
PROGRESS NOTES Subjective Subjective She feels better with her neck and shoulder pain. Objective Objective Vital Signs Date Time Temp Pulse Resp B/P (MAP) Pulse Ox O2 Delivery O2 Flow Rate FiO2 05/11/17 07:30 97.7 79 18 121/71 (88) 98 Room Air 97.7 05/09/17 15:27 2.0 Intake and Output 05/11/17 07:00 Intake Total 620 ml Output Total 1050 ml Balance -430 ml Intake Oral 620 ml Output Urine Total 1050 ml # Voids 1 Physical Exam Physical Exam She is comfortable,sitting at edge of bed and still had tenderness to palpation over left cervical paraspinal and posterior shoulder girdle muscles and keeps left shoulder at slightly elevated position when compared to right. Assessment Assessment Problems Medical Problems: (1) Back pain Status: Acute Plan Plan of Care Agre with plans for home and I have reviewed with her home exercises and use of roller walker or cane while up to help with her balance and to consider out patient physical therapy and mri scan of her neck it pain persists. Comment Review of Relevant I have reviewed the following items ewa (where applicable) has been applied. Labs Laboratory Tests Test 05/09/17 11:45 05/09/17 11:54 05/09/17 17:10 05/09/17 20:57 Troponin I Quantitative 2.162 ng/mL (0.000-0.055) Thyroid Stimulating Hormone (TSH) 5.597 uIU/mL (0.358-3.74) Glucose (Fingerstick) 214 mg/dL (70-99) 189 mg/dL (70-99) 275 mg/dL (70-99) Test 05/10/17 01:05 05/10/17 07:40 05/10/17 07:52 05/10/17 11:39 White Blood Count 5.0 x10^3/uL (4.0-11.0) Red Blood Count 3.40 x10^6/uL (3.50-5.40) Hemoglobin 10.3 g/dL (12.0-15.5) Hematocrit 31.4 % (36.0-47.0) Mean Corpuscular Volume 92 fL (79-100) Mean Corpuscular Hemoglobin 30 pg (25-35) Mean Corpuscular Hemoglobin Concent 33 g/dL (31-37) Red Cell Distribution Width 14.1 % (11.5-14.5) Platelet Count 226 x10^3/uL (140-400) Neutrophils (%) (Auto) 52 % (31-73) Lymphocytes (%) (Auto) 36 % (24-48) Monocytes (%) (Auto) 11 % (0-9) Eosinophils (%) (Auto) 2 % (0-3) Basophils (%) (Auto) 0 % (0-3) Neutrophils # (Auto) 2.6 x10^3uL (1.8-7.7) Lymphocytes # (Auto) 1.8 x10^3/uL (1.0-4.8) Monocytes # (Auto) 0.5 x10^3/uL (0.0-1.1) Eosinophils # (Auto) 0.1 x10^3/uL (0.0-0.7) Basophils # (Auto) 0.0 x10^3/uL (0.0-0.2) Heparin Anti-Xa Act, Unfractionated 0.25 IU/mL (0.30-0.70) 0.64 IU/mL (0.30-0.70) Sodium Level 141 mmol/L (136-145) Potassium Level 3.5 mmol/L (3.5-5.1) Chloride Level 104 mmol/L (98-107) Carbon Dioxide Level 31 mmol/L (21-32) Anion Gap 6 (6-14) Blood Urea Nitrogen 10 mg/dL (7-20) Creatinine 0.8 mg/dL (0.6-1.0) Estimated GFR (Cockcroft-Gault) 83.9 Glucose Level 179 mg/dL (70-99) Calcium Level 8.1 mg/dL (8.5-10.1) Magnesium Level 1.8 mg/dL (1.8-2.4) Glucose (Fingerstick) 146 mg/dL (70-99) 219 mg/dL (70-99) Test 05/10/17 14:35 05/10/17 16:53 05/10/17 20:49 05/11/17 03:25 Heparin Anti-Xa Act, Unfractionated 0.68 IU/mL (0.30-0.70) Glucose (Fingerstick) 176 mg/dL (70-99) 208 mg/dL (70-99) White Blood Count 4.8 x10^3/uL (4.0-11.0) Red Blood Count 3.42 x10^6/uL (3.50-5.40) Hemoglobin 10.5 g/dL (12.0-15.5) Hematocrit 31.9 % (36.0-47.0) Mean Corpuscular Volume 93 fL (79-100) Mean Corpuscular Hemoglobin 31 pg (25-35) Mean Corpuscular Hemoglobin Concent 33 g/dL (31-37) Red Cell Distribution Width 14.1 % (11.5-14.5) Platelet Count 232 x10^3/uL (140-400) Neutrophils (%) (Auto) 47 % (31-73) Lymphocytes (%) (Auto) 39 % (24-48) Monocytes (%) (Auto) 10 % (0-9) Eosinophils (%) (Auto) 3 % (0-3) Basophils (%) (Auto) 0 % (0-3) Neutrophils # (Auto) 2.3 x10^3uL (1.8-7.7) Lymphocytes # (Auto) 1.9 x10^3/uL (1.0-4.8) Monocytes # (Auto) 0.5 x10^3/uL (0.0-1.1) Eosinophils # (Auto) 0.2 x10^3/uL (0.0-0.7) Basophils # (Auto) 0.0 x10^3/uL (0.0-0.2) Sodium Level 142 mmol/L (136-145) Potassium Level 3.5 mmol/L (3.5-5.1) Chloride Level 106 mmol/L (98-107) Carbon Dioxide Level 29 mmol/L (21-32) Anion Gap 7 (6-14) Blood Urea Nitrogen 10 mg/dL (7-20) Creatinine 0.9 mg/dL (0.6-1.0) Estimated GFR (Cockcroft-Gault) 73.3 Glucose Level 177 mg/dL (70-99) Calcium Level 8.3 mg/dL (8.5-10.1) Magnesium Level 2.0 mg/dL (1.8-2.4) Laboratory Tests Test 05/10/17 11:39 05/10/17 14:35 05/10/17 16:53 05/10/17 20:49 Glucose (Fingerstick) 219 mg/dL (70-99) 176 mg/dL (70-99) 208 mg/dL (70-99) Heparin Anti-Xa Act, Unfractionated 0.68 IU/mL (0.30-0.70) Test 05/11/17 03:25 White Blood Count 4.8 x10^3/uL (4.0-11.0) Red Blood Count 3.42 x10^6/uL (3.50-5.40) Hemoglobin 10.5 g/dL (12.0-15.5) Hematocrit 31.9 % (36.0-47.0) Mean Corpuscular Volume 93 fL (79-100) Mean Corpuscular Hemoglobin 31 pg (25-35) Mean Corpuscular Hemoglobin Concent 33 g/dL (31-37) Red Cell Distribution Width 14.1 % (11.5-14.5) Platelet Count 232 x10^3/uL (140-400) Neutrophils (%) (Auto) 47 % (31-73) Lymphocytes (%) (Auto) 39 % (24-48) Monocytes (%) (Auto) 10 % (0-9) Eosinophils (%) (Auto) 3 % (0-3) Basophils (%) (Auto) 0 % (0-3) Neutrophils # (Auto) 2.3 x10^3uL (1.8-7.7) Lymphocytes # (Auto) 1.9 x10^3/uL (1.0-4.8) Monocytes # (Auto) 0.5 x10^3/uL (0.0-1.1) Eosinophils # (Auto) 0.2 x10^3/uL (0.0-0.7) Basophils # (Auto) 0.0 x10^3/uL (0.0-0.2) Sodium Level 142 mmol/L (136-145) Potassium Level 3.5 mmol/L (3.5-5.1) Chloride Level 106 mmol/L (98-107) Carbon Dioxide Level 29 mmol/L (21-32) Anion Gap 7 (6-14) Blood Urea Nitrogen 10 mg/dL (7-20) Creatinine 0.9 mg/dL (0.6-1.0) Estimated GFR (Cockcroft-Gault) 73.3 Glucose Level 177 mg/dL (70-99) Calcium Level 8.3 mg/dL (8.5-10.1) Magnesium Level 2.0 mg/dL (1.8-2.4) Medications Current Medications Fentanyl Citrate (Fentanyl 2ml Vial) 25 mcg PRN Q15MIN PRN IV PAIN GREATER THAN 3/10 Last administered on 05/08/17 13:22; Start 05/08/17 at 13:00; Stop at 17:56; Status DC Iohexol (Omnipaque 300 Mg/ml) 75 ml 1X ONCE IV Last administered on 05/08/17 15:14; Start 05/08/17 at 14:15; Stop 05/08/17 at 14:16; Status DC Ondansetron HCl (Zofran) 4 mg PRN Q8HRS PRN IV NAUSEA/VOMITING; Start 05/08/17 at 18:00; Stop 05/09/17 at 07:30; Status DC Fentanyl Citrate (Fentanyl 2ml Vial) 50 mcg PRN Q1HR PRN IV PAIN Last administered on 05/09/17 03:34; Start 05/08/17 at 18:00; Stop 05/09/17 at 07:30 ; Status DC Acetaminophen (Tylenol) 650 mg PRN Q4HRS PRN PO FEVER Last administered on 05/08 19:39; Start 05/08/17 at 18:00; Stop 05/09/17 at 07:30; Status DC Aspirin (Ecotrin) 81 mg DAILY PO Last administered on 05/10/17 11:22; Start at 09:00 Carvedilol (Coreg) 3.125 mg BIDWMEALS PO Last administered on 05/10/17 17:14; Start 05/08/17 at 21:00 Vitamin D (Vitamin D3) 1,000 unit DAILY PO Last administered on 05/10/17 11:22 ; Start 05/09/17 at 09:00 Metformin HCl (Glucophage) 850 mg BIDWMEALS PO ; Start 05/11/17 at 17:00; Stop at 17:00; Status DC Methimazole (Tapazole) 5 mg Q8HRS PO Last administered on 05/11/17 06:31; Start 05/08/17 at 22:00 Simvastatin (Zocor) 20 mg QHS PO Last administered on 05/10/17 21:21; Start at 21:00 Calcium/Vitamin D (Oscal D 500mg/ 200uts) 1 tab [id number] PO Last administered on 05/10/17 11:22; Start 05/09/17 at 08:00 Cyanocobalamin (Vitamin B-12) 1,000 mcg DAILY PO Last administered on 05/10/17 08:53; Start 05/09/17 at 09:00 Multivitamins (Thera M Plus) 1 tab DAILY PO Last administered on 05/10/17 08:52 ; Start 05/09/17 at 09:00 Info (Do NOT chart on this entry -- for MONITORING) 1 each PRN DAILY PRN MC SEE COMMENTS; Start 05/08/17 at 14:15; Stop 05/09/17 at 15:25; Status DC Glimepiride (Amaryl) 4 mg BIDWMEALS PO Last administered on 05/10/17 17:15; Start 05/08/17 at 21:30 Fentanyl Citrate (Fentanyl 2ml Vial) 50 mcg PRN Q1HR PRN IV PAIN Last administered on 05/09/17 09:18; Start 05/09/17 at 07:30 Ondansetron HCl (Zofran) 4 mg PRN Q8HRS PRN IV NAUSEA/VOMITING Last administered on 05/09/17 10:43; Start 05/09/17 at 07:30 Acetaminophen (Tylenol) 650 mg PRN Q4HRS PRN PO FEVER; Start 05/09/17 at 07:30 Insulin Aspart (NovoLOG) TIDAC SQ Last administered on 05/09/17 18:45; Start 05/09/17 at 07:30; Stop 05/10/17 at 08:20; Status DC Tizanidine HCl (Zanaflex) 2 mg PRN Q8HRS PRN PO MUSCLE SPASMS Last administered on 05/10/17 21:21; Start 05/09/17 at 09:00 Diclofenac Sodium (Voltaren) 1 becca QID TP Last administered on 05/10/17 21:21; Start 05/09/17 at 09:00 Potassium Chloride (Klor-Con) 20 meq 1X ONCE PO ; Start 05/09/17 at 09:45; Stop 05/09/17 at 09:46; Status DC Methylprednisolone (Medrol) 8 mg BID PO ; Start 05/09/17 at 10:30; Stop at 17:05; Status DC Methylprednisolone (Medrol) 4 mg BIDPCLD PO ; Start 05/09/17 at 12:30; Stop at 17:05; Status DC Methylprednisolone (Medrol) 4 mg TIDPC PO ; Start 05/10/17 at 08:30; Stop at 08:30; Status DC Methylprednisolone (Medrol) 8 mg QHS PO ; Start 05/10/17 at 21:00; Stop 05/10/17 at 21:00; Status DC Methylprednisolone (Medrol) 4 mg QIDAFTMEAL PO ; Start 05/11/17 at 09:00; Stop at 09:00; Status DC Methylprednisolone (Medrol) 4 mg TID PO ; Start 05/12/17 at 09:00; Stop 05/12/17 at 09:00; Status DC Methylprednisolone (Medrol) 4 mg BID PO ; Start 05/13/17 at 09:00; Stop 05/13/17 at 09:00; Status DC Methylprednisolone (Medrol) 4 mg DAILY PO ; Start 05/14/17 at 09:00; Stop at 09:00; Status DC Pantoprazole Sodium (Protonix) 40 mg DAILYAC PO Last administered on 05/10/17 11:22; Start 05/09/17 at 11:00 Famotidine (Pepcid) 20 mg BID PO Last administered on 05/09/17t 21:53; Start at 11:00; Stop 05/10/17 at 07:54; Status DC Diazepam (Valium) 5 mg 1X ONCE PO ; Start 05/09/17 at 10:30; Stop 05/09/17 at 10:31; Status DC Lidocaine HCl 20 ml STK-MED ONCE .ROUTE ; Start 05/09/17 at 14:11; Stop at 14:12; Status DC Heparin Sodium/ Sodium Chloride 1,500 ml @ As Directed STK-MED ONCE .ROUTE ; Start 05/09/17 at 14:11; Stop 05/09/17 at 14:12; Status DC Iodixanol (Visipaque 320) 100 ml STK-MED ONCE .ROUTE ; Start 05/09/17 at 14:11; Stop 05/09/17 at 14:12; Status DC Iodixanol (Visipaque 320) 100 ml STK-MED ONCE .ROUTE ; Start 05/09/17 at 14:11; Stop 05/09/17 at 14:12; Status DC Nitroglycerin (Nitroglycerin) 200 mcg STK-MED ONCE .ROUTE ; Start 05/09/17 at 14 :44; Stop 05/09/17 at 14:45; Status DC Verapamil HCl (Verapamil) 5 mg STK-MED ONCE .ROUTE ; Start 05/09/17 at 14:44; Stop 05/09/17 at 14:45; Status DC Midazolam HCl (Versed) 2 mg STK-MED ONCE .ROUTE ; Start 05/09/17 at 14:45; Stop 05/09/17 at 14:46; Status DC Fentanyl Citrate (Fentanyl 2ml Vial) 100 mcg STK-MED ONCE .ROUTE ; Start at 14:45; Stop 05/09/17 at 14:46; Status DC Heparin Sodium (Porcine) (Heparin Sodium) 10,000 unit STK-MED ONCE .ROUTE ; Start 05/09/17 at 14:45; Stop 05/09/17 at 14:46; Status DC Nitroglycerin (Nitroglycerin) 200 mcg 1X ONCE IART Last administered on 15:24; Start 05/09/17 at 15:15; Stop 05/09/17 at 15:24; Status DC Verapamil HCl (Verapamil) 2.5 mg 1X ONCE IART Last administered on 05/09/17 15:24; Start 05/09/17 at 15:15; Stop 05/09/17 at 15:24; Status DC Heparin Sodium (Porcine) (Heparin Sodium) 2,500 unit 1X ONCE IART Last administered on 05/09/17 15:26; Start 05/09/17 at 15:15; Stop 05/09/17 at 15:24 ; Status DC Heparin Sodium/ Sodium Chloride 1,000 unit 1X ONCE IART Last administered on 15:23; Start 05/09/17 at 15:15; Stop 05/09/17 at 15:24; Status DC Midazolam HCl (Versed) 1 mg 1X ONCE IV Last administered on 05/09/17 15:25; Start 05/09/17 at 15:15; Stop 05/09/17 at 15:24; Status DC Fentanyl Citrate (Fentanyl 2ml Vial) 50 mcg 1X ONCE IV Last administered on 15:25; Start 05/09/17 at 15:15; Stop 05/09/17 at 15:24; Status DC Iodixanol (Visipaque 320) 98 ml 1X ONCE IART Last administered on 05/09/17 15 :24; Start 05/09/17 at 15:15; Stop 05/09/17 at 15:24; Status DC Lidocaine HCl 1 ml 1X ONCE IJ Last administered on 05/09/17 15:26; Start at 15:15; Stop 05/09/17 at 15:24; Status DC Info (Do NOT chart on this entry -- for MONITORING) 1 each PRN DAILY PRN MC SEE COMMENTS; Start 05/09/17 at 15:30; Stop 05/11/17 at 15:29 Heparin Sodium/ Dextrose 500 ml @ 0 mls/hr CONT PRN IV SEE I/O RECORD Last administered on 05/09/17 18:45; Start 05/09/17 at 16:00; Stop 05/10/17 at 15:25 ; Status DC Heparin Sodium (Porcine) (Heparin Sodium) 2,050 unit PRN Q6HRS PRN IV FOR UFH LEVEL LESS THAN 0.2 Last administered on 05/09/17 18:38; Start 05/09/17 at 16: 00; Stop 05/10/17 at 15:25; Status DC Info (Anti-Coagulation Monitoring By Pharmacy) 1 each PRN DAILY PRN MC SEE COMMENTS; Start 05/09/17 at 16:15; Status Cancel Insulin Aspart (NovoLOG) TIDAC SQ Last administered on 05/10/17 17:19; Start 05/10/17 at 11:30 Lisinopril (Prinivil) 5 mg DAILY PO Last administered on 05/10/17 13:47; Start 05/10/17 at 12:00 Metformin HCl (Glucophage) 850 mg BIDWMEALS PO ; Start 05/11/17 at 17:00 Active Scripts Active NITROGLYCERIN SubLingual (Nitroglycerin) 0.4 Mg Tab.subl 30 Mg SL PRN Q5MIN PRN Lisinopril 5 Mg Tablet 5 Mg PO DAILY Metformin Hcl 850 Mg Tablet 850 Mg PO BIDWMEALS Hold until 04/09/17 and then start BID Tizanidine Hcl 2 Mg Capsule 2 Mg PO PRN Q8HRS PRN Tramadol Hcl 50 Mg Tablet 90 Mg PO Q6H PRN Reported Glimepiride 4 Mg Tablet 1 Tab PO BID Vitamin D3 (Cholecalciferol (Vitamin D3)) 1,000 Unit Tablet 1 Tab PO DAILY Vitamin B-12 (Cyanocobalamin (Vitamin B-12)) 1,000 Mcg Tablet.er 1,000 Mcg PO DAILY Caltrate 600 + D Tablet (Calcium Carbonate/Vitamin D3) 1 Each Tablet 1 Each PO DAILY Centrum Adults Tablet (Multivitamin/Iron/Folic Acid) 1 Each Tablet 1 Each PO DAILY Methimazole 10 Mg Tablet 5 Mg PO Q8HRS Simvastatin 20 Mg Tablet 1 Tab PO QHS Carvedilol 3.125 Mg Tablet 1 Tab PO BID Aspir 81 (Aspirin) 81 Mg Tablet. 81 Mg PO Vitals/I & O Vital Sign - Last 24 Hours 05/10/17 05/10/17 05/10/17 05/10/17 11:00 13:47 15:00 17:14 Temp 97.6 97.6 97.6 97.6 Pulse 85 95 79 90 Resp 20 18 B/P (MAP) 157/88 (111) 157/88 123/71 (88) 123/71 Pulse Ox 99 96 O2 Delivery Room Air Room Air 05/10/17 05/10/17 05/10/17 05/11/17 19:50 20:00 23:06 03:35 Temp 98.0 97.9 97.1 98.0 97.9 97.1 Pulse 90 87 104 Resp 18 18 18 B/P (MAP) 147/85 (105) 137/69 (91) 143/73 (96) Pulse Ox 97 99 98 O2 Delivery Room Air Room Air Room Air Room Air 05/11/17 07:30 Temp 97.7 97.7 Pulse 79 Resp 18 B/P (MAP) 121/71 (88) Pulse Ox 98 O2 Delivery Room Air Intake and Output 05/10/17 05/10/17 05/11/17 15:00 23:00 07:00 Intake Total 400 ml 220 ml Output Total 550 ml 500 ml Balance -150 ml -280 ml KIRAN IVEY MD May 11, 2017 10:22
[2017-05-11] MEDS: CHOLECALCIFEROL (VITAMIN D3) 1,000 UNIT TABLET PO SCH (10:42)
[2017-05-11] MEDS: PANTOPRAZOLE 40 MG TABLET.DR. PO SCH (10:42)
[2017-05-11] MEDS: CYANOCOBALAMIN (VITAMIN B-12) 1,000 MCG TABLET. PO SCH (10:42)
[2017-05-11] MEDS: LISINOPRIL 5 MG TABLET. PO SCH (10:42)
[2017-05-11] MEDS: CALCIUM CARB/VIT D3 500/200 TABLET. PO SCH (10:42)
[2017-05-11] MEDS: MULTIVITAMIN with MINERAL TABLET. PO SCH (10:42)
[2017-05-11] MEDS: ASPIRIN ENTERIC COATED 81 MG TABLET.DR. PO SCH (10:43)
[2017-05-11] MEDS: CARVEDILOL 3.125 MG TABLET. PO SCH ×2 (10:43→18:10)
[2017-05-11] MEDS: GLIMEPIRIDE 2 MG TABLET. PO SCH ×2 (10:46→18:10)
[2017-05-11] MEDS: DICLOFENAC SODIUM 1% TOPICAL GEL 100GM TUBE. TP SCH ×2 (10:47→13:00)
[2017-05-11 11:00] VITALS: BP 145/71
[2017-05-11 15:00] VITALS: BP 122/61
[2017-05-11] MEDS ORDERED: metFORMIN 850 MG TABLET PO SCH ×2 (17:00)
[2017-05-11 18:10] VITALS: BP 122/61
[2017-05-12] MEDS ORDERED: methylPREDNISolone 4 MG TABLET. PO SCH (09:00)
[2017-05-13] MEDS ORDERED: methylPREDNISolone 4 MG TABLET. PO SCH (09:00)
[2017-05-14] MEDS ORDERED: methylPREDNISolone 4 MG TABLET. PO SCH (09:00)
== END 2017-05-11 19:15 | disposition home or self-care (01) | DRG 281 ==
LOC: ER 12:12 → 4 NORTH 17:06 → 2 NORTH 05-09 15:23
PROVIDERS: ADMIT Internal Medicine; ATTEND Internal Medicine
PROC: 4A023N7 Measurement of Cardiac Sampling and Pressure, Left Heart, Percutaneous Approach (ICD-10-PCS; principal; 2017-05-09)
PROC: B2111ZZ Fluoroscopy of Multiple Coronary Arteries using Low Osmolar Contrast (ICD-10-PCS; 2017-05-09)
PROC: B2151ZZ Fluoroscopy of Left Heart using Low Osmolar Contrast (ICD-10-PCS; 2017-05-09)
DX: I21.4 Non-ST elevation (NSTEMI) myocardial infarction (principal); E44.0 Moderate protein-calorie malnutrition; I13.0 Hypertensive heart and chronic kidney disease with heart failure and stage 1 through stage 4 chronic kidney disease, or unspecified chronic kidney disease; I50.42 Chronic combined systolic (congestive) and diastolic (congestive) heart failure; M54.2 Cervicalgia; E87.6 Hypokalemia; E78.5 Hyperlipidemia, unspecified; E66.9 Obesity, unspecified; I16.0 Hypertensive urgency; I25.10 Atherosclerotic heart disease of native coronary artery without angina pectoris; I25.5 Ischemic cardiomyopathy; G47.33 Obstructive sleep apnea (adult) (pediatric); E11.22 Type 2 diabetes mellitus with diabetic chronic kidney disease; E03.9 Hypothyroidism, unspecified; E11.42 Type 2 diabetes mellitus with diabetic polyneuropathy; J84.112 Idiopathic pulmonary fibrosis; K64.8 Other hemorrhoids; M54.12 Radiculopathy, cervical region; N18.2 Chronic kidney disease, stage 2 (mild); F41.9 Anxiety disorder, unspecified; E53.8 Deficiency of other specified B group vitamins; M54.9 Dorsalgia, unspecified; K21.9 Gastro-esophageal reflux disease without esophagitis; K57.90 Diverticulosis of intestine, part unspecified, without perforation or abscess without bleeding; M19.012 Primary osteoarthritis, left shoulder; Z82.49 Family history of ischemic heart disease and other diseases of the circulatory system; I25.2 Old myocardial infarction; Z83.3 Family history of diabetes mellitus; Z90.722 Acquired absence of ovaries, bilateral; Z68.25 Body mass index [BMI] 25.0-25.9, adult
CPT/HCPCS: 36415; 71010; 71275; 72040; 73030; 80048; 80053; 80061; 80076; 82962; 83735; 83880; 84443; 84484; 85027; 85379; 85520; 93005; 93306; 93458; 94620; 94799; 99152; 99153; C1769; C1892; J1644; J1815; J2001; J2250; J2405; J3010; J3490; Q9967; 99285-25

== ENCOUNTER 2018-03-22 17:14 | Emergency (ER) | payer MEDICARE ==
[2018-03-22] MEDS: DIPHTH,PERTUSS(ACELL),TET TOX 0.5 ML DISP.SYRIN. VAX IM (18:55)
== END 2018-03-22 20:11 | disposition home or self-care (01) ==
LOC: ER 17:14
DX: M84.375A Stress fracture, left foot, initial encounter for fracture (principal); S83.92XA Sprain of unspecified site of left knee, initial encounter; S63.92XA Sprain of unspecified part of left wrist and hand, initial encounter; S50.02XA Contusion of left elbow, initial encounter; S40.012A Contusion of left shoulder, initial encounter; S00.83XA Contusion of other part of head, initial encounter; M25.552 Pain in left hip; E11.9 Type 2 diabetes mellitus without complications; I10 Essential (primary) hypertension; W01.0XXA Fall on same level from slipping, tripping and stumbling without subsequent striking against object, initial encounter; Y93.89 Activity, other specified; Y92.89 Other specified places as the place of occurrence of the external cause; Y99.8 Other external cause status
CPT/HCPCS: 70450; 72125; 73030; 73080; 73130; 73502; 73562; 73630; 90471; 90715; 99284-25

== ENCOUNTER → 2018-06-20 | Day surgery (SDC) | payer MEDICARE ==
[~2018-06-20] MED LIST: ACET-704 PO; ACET325T9 PO; APIX5TAB PO; ASPI-482 PO; CALC1TAB PO; CARV3.122 PO; CARV6.25 PO; CEPH-264 PO; CHOL10002 PO; CHOL10003 PO; CLOP75TA PO; CYAN10005 PO; CYAN100070 PO; GLIM2TAB PO; GLIM4TAB2 PO; HYDROmorphone 2 MG/ML VIAL IV PRN; IV RINGERS,LACTATED 1000ML 1,000 ML IV SCH; LACT1CAP19 PO; LIDOCAINE 1% PF 2 ML VIAL. ID PRN; LISI-338 PO; LISI10TA2 PO; METF850T8 PO; METH-364 PO; METH5TAB6 PO; METO50TA29 PO; MORPHINE SULFATE 2 MG/ML VIAL. IV PRN; MULT-697 PO; NITR0.4T22 SL; ONDANSETRON PF 4 MG/2 ML VIAL. IV PRN; PROCHLORPERAZINE 10 MG/2 ML VIAL. IV PRN; PROPOFOL 20 ML IV ONE; SIMV20TA3 PO; TIZA2CAP PO; TRAM50TA PO; fentaNYL PF VIAL 100 MCG/2 ML VIAL IV PRN
--- NOTE | 2018-06-20 09:17 | PDOC1 ---
HISTORY & PHYSICAL H&P Jose Carlos Espinoza [id number] 1940 03/07/2018 03:10 PM 10/10 [employer] [employer] [facility], [place], [facility] OUR PATIENTS COME FIRST [address] [place], [place] [id number] Ph. [phone] Patient: Jose Carlos Espinoza Date of : 1940 Date: 03/07/2018 3:10 PM Visit Type: Office Visit This 77 year old female presents for H/o colorectal polyp. History of Present Illness: 1. H/o colorectal polyp No prior screening. Denies risk factors. Pertinent negatives include abdominal pain, change in bowel habits, change in stool caliber, constipation, decreased appetite, diarrhea, melena, nausea, rectal bleeding, vomiting, weight gain and weight loss. Additional information: No family history of colon cancer , No family history of Crohn's/colitis, No NSAID/ASA use and Last colonoscopy 2014. Patient also has significant cardiac issue and she had AICD placed. Patient is to see her artificial breeding technician and once she is okayed by the artificial breeding technician we will schedule her for colonoscopy at [facility]. 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 The mapped diagnosis code was Thyrotoxicosis without mention of goiter or other, 242.90, added by Zach Patterson , with responsible provider Zach Patterson MD. Onset date 09/27/2012; last addressed on 01/07/2014. Dizziness 08/20/2015 Diabetes mellitus without complication 12/02/2009 Y Mapped from [facility] Chronic Conditions table on 07/24/2014 by Melanie Villafana. The mapped diagnosis code was Diabetes mellitus without mention of complication,,250.00, added by Kelsey Huddleston. Onset date 12/02/2009; last addressed on 11/19/2013. Hyperthyroidism 10/23/2014 Acute systolic congestive heart failure 08/20/2015 Acute combined systolic and diastolic congestive heart failure 08/20/2015 Anemia 12/02/2009 Y Mapped from [facility] Chronic Conditions table on 04/29/2014 by the ICD9 to SNOMED Bulk Mapping Utility. The mapped diagnosis code was Anemia, unspecified, 285.9, added by Kelsey Huddleston, with responsible provider . Onset date 12/02/2009; last addressed on 01/07/2014. Benign essential hypertension 12/02/2009 Y Mapped from [facility] Chronic Conditions table on 04/29/2014 by the ICD9 to SNOMED Bulk Mapping Utility. The mapped diagnosis code was Benign essential hypertension, 401.1, added by Kelsey Huddleston, with responsible provider . Onset date 12/02/2009; last addressed on 01/07/2014. Gastro-esophageal reflux disease with esophagitis 12/02/2009 Y Mapped from [facility] Chronic Conditions table on 04/29/2014 by the ICD9 to SNOMED Bulk Mapping Utility. The mapped diagnosis code was Reflux esophagitis, 530.11, added by Kelsey Huddleston, with responsible provider . Onset date 12/02/2009; last addressed on 02/07/2013. Degenerative joint disease involving multiple joints 12/02/2009 Y Mapped from [facility] Chronic Conditions table on 04/29/2014 by the ICD9 to SNOMED Bulk Mapping Utility. The mapped diagnosis code was Osteoarthrosis, generalized, involving unspecified, 715.00, added by Kelsey Huddleston, with responsible provider . Onset date 12/02/2009; last addressed on 11/19/2013. Anxiety state 12/02/2009 Y Mapped from [facility] Chronic Conditions table on 2013 by the ICD9 to SNOMED Bulk Mapping Utility. The mapped diagnosis code was Anxiety state, unspecified, 300.00, added by Kelsey Huddleston, with responsible provider . Onset date 12/02/2009; last addressed on 01/07/2014. Medications (Active): Started Medication Directions Instruction Stopped 03/14/2009 CALTRATE 600 carvedilol 6.25 mg tablet take 1 tablet by oral route 2 times every day with food 06/19/2009 Centrum Silver Tab take 1 tablet po qd Eliquis 5 mg tablet take 1 tablet by oral route 2 times every day 12/27/2017 ENALAPRIL MALEATE/HYDROCHLOROTHIAZIDE 10-25 MG Tablet TAKE 1 TABLET EVERY DAY 09/05/2017 glimepiride 4 mg tablet TAKE 1 TABLET TWICE DAILY 09/05/2017 metformin 850 mg tablet TAKE 1 TABLET TWICE DAILY AFTER MEALS 12/27/2017 METHIMAZOLE 5 MG Tablet TAKE 1 TABLET EVERY DAY 05/16/2017 nitroglycerin 0.[address] 1 tablet (0.4MG) by sublingually for chest pain.May repeat x2 , 5 minutes apart Plavix 75 mg tablet take 1 tablet by oral route every day 12/27/2017 SIMVASTATIN 20 MG Tablet TAKE 1 TABLET EVERY DAY IN THE EVENING 05/16/2017 tramadol 50 mg tablet take 1 tablet by oral route every 6 hours as needed 11/22/2012 Vitamin B-12 1,000 mcg tablet take once daily in the morning Vitamin D 03/14/2009 VITAMIN E Allergies: Ingredient Reaction Medication Name Comment ESTROGENS, CONJUGATED Premarin REVIEW OF SYSTEMS System Neg/Pos Details Constitutional Negative Chills, fever, malaise, weight gain and weight loss. ENMT Negative Sore throat. Eyes Negative Double vision. Respiratory Negative Dyspnea and wheezing. Cardio Negative Chest pain and irregular heartbeat/palpitations. GI Positive See HPI. GI Negative Abdominal pain, change in bowel habits, change in stool caliber, constipation, decreased appetite, diarrhea, melena, nausea, see HPI, rectal bleeding and vomiting. Negative Dysuria and hematuria. Endocrine Negative Cold intolerance and heat intolerance. Psych Negative Anxiety. Integumentary Negative Hives and rash. MS Negative Joint pain. Haseeb/Lymph Negative Easy bleeding and easy bruising. Allergic/Immuno Negative Food allergies. VITAL SIGNS Time BP mm/Hg Pulse /min Resp /min Temp F Ht ft Ht in Ht cm Wt lb Wt kg BMI kg/ m2 BSA m2 O2 Sat% 3:00 PM 110/60 86 18 97.5 5.0 8.00 172.72 172.00 78.018 26.15 96 MEASURED BY Time Measured by 3:00 PM Abril Phan PHYSICAL EXAM: Exam Findings Details Constitutional Normal Well developed. Eyes Normal Conjunctiva - Right: Normal, Left: Normal. Sclera - Right: Normal, Left: Normal. Nasopharynx Normal Lips/teeth/gums - Normal. Neck Exam Normal Inspection - Normal. Thyroid gland - Normal. Respiratory Normal Inspection - Normal. Auscultation - Normal. Cardiovascular Normal Regular rate and rhythm. No murmurs, gallops, or rubs. Abdomen Normal Inspection - Normal. Anterior palpation - No guarding. No abdominal tenderness. No hepatic enlargement. No splenic enlargement. No hernia. No Ascites. Skin Normal Inspection - Normal. Extremity Normal No edema. Psychiatric Normal Oriented to time, place, person, and situation. Appropriate mood and effect. Assessment/Plan # Detail Type Description 1. Assessment History of colon polyps (Z86.010). Patient Plan schedule colonoscopy at [facility] once cleared by the artificial breeding technician. Electronically signed by: Shawn Patterson MD 03/07/2018 04:52 PM Document generated by: Shawn Patterson 03/07/2018 04:52 PM Jossue Draper MD, Family Practice; Paolo Kenney MD Internal Medicine; Raoul Villatoro MD, Internal Medicine; Zach Patterson MD Internal Medicine; Shawn Patterson MD, Gastroenterology; Sameer Jimenes MD, Rheumatology, J. Johnson LARA ------ 06/20/18 Patient seen and examined. No change in H&P. SHAWN PATTERSON MD Jun 20, 2018 09:17
[2018-06-20 10:42] VITALS: BP 103/60
== END | disposition home or self-care (01) ==
LOC: ENDOS 08:55
PROVIDERS: ATTEND Internal Medicine Gastroenterology
DX: K57.30 Diverticulosis of large intestine without perforation or abscess without bleeding (principal); D64.9 Anemia, unspecified; E03.9 Hypothyroidism, unspecified; E11.9 Type 2 diabetes mellitus without complications; K21.9 Gastro-esophageal reflux disease without esophagitis; M19.90 Unspecified osteoarthritis, unspecified site; F41.9 Anxiety disorder, unspecified; I11.0 Hypertensive heart disease with heart failure; Z79.899 Other long term (current) drug therapy; Z86.010 Personal history of colon polyps; Z79.82 Long term (current) use of aspirin
CPT/HCPCS: 45378; J2704

== ENCOUNTER → 2021-10-23 | Outpatient (CLI) | payer MEDICARE ==
[2019-08-31 11:00] VITALS: BP 175/64
[~2021-10-23] MED LIST changes: +CARV3.1210 PO; -CARV3.122 PO; +CYAN-25 PO; -CYAN10005 PO; +ENAL1TAB5 PO; -GLIM4TAB2 PO; +GLIM4TAB8 PO; -HYDROmorphone 2 MG/ML VIAL IV PRN; -IV RINGERS,LACTATED 1000ML 1,000 ML IV SCH; -LIDOCAINE 1% PF 2 ML VIAL. ID PRN; -LISI-338 PO; +LISI10TA16 PO; -LISI10TA2 PO; +LISI5TAB15 PO; -METH-364 PO; +METH10TA32 PO; +METH5TAB30 PO; -METH5TAB6 PO; +METO-239 PO; -MORPHINE SULFATE 2 MG/ML VIAL. IV PRN; +ONDA4TAB12 PO; -ONDANSETRON PF 4 MG/2 ML VIAL. IV PRN; -PROCHLORPERAZINE 10 MG/2 ML VIAL. IV PRN; -PROPOFOL 20 ML IV ONE; +SIMV20TA18 PO; -SIMV20TA3 PO; +VITA100075 PO; -fentaNYL PF VIAL 100 MCG/2 ML VIAL IV PRN
[2021-10-23 15:09] LABS: BASO % 0 % (0-3); EOS % 1 % (0-3); HEMATOCRIT 32.4 % (36.0-47.0); HEMOGLOBIN 10.8 g/dL (12.0-15.5); LYMPH # 0.7 x10^3/uL (1.0-4.8); LYMPH % 18 % (24-48); MEAN CORPUSCULAR HEMOGLOBIN 32 pg (25-35); MEAN CORPUSCULAR HGB CONC 33 g/dL (31-37); MEAN CORPUSCULAR VOLUME 95 fL (79-100); MONO # 0.3 x10^3/uL (0.0-1.1); MONO % 6 % (0-9); NEUT # 3.2 x10^3/uL (1.8-7.7); NEUT % 75 % (31-73); PLATELET COUNT 252 x10^3/uL (140-400); RED CELL DISTRIBUTION WIDTH 15.8 % (11.5-14.5); WHITE BLOOD COUNT 4.2 x10^3/uL (4.0-11.0)
[2021-10-23 15:35] LABS: CALCIUM 9.3 mg/dL (8.5-10.1); GFR 64.2
[2021-10-23 15:52] LABS: ALBUMIN 3.8 g/dL (3.4-5.0); ALBUMIN/GLOBULIN RATIO 0.9 (1.0-1.7); TOTAL BILIRUBIN 0.4 mg/dL (0.2-1.0); TOTAL PROTEIN 8.1 g/dL (6.4-8.2)
== END ==
LOC: ONCLAB 14:34
PROVIDERS: ATTEND Internal Medicine Hematology & Oncology
DX: D64.9 Anemia, unspecified (principal)
CPT/HCPCS: 80053; 82525; 82607; 82668; 82728; 82746; 83540; 83550; 85025